=== PATIENT | female | born 1960 | race Caucasian/White ===

== ENCOUNTER 2016-09-18 22:12 | Inpatient (IN) | payer MEDICARE, OTHER ==
[~2016-09-18] VITALS: Ht 175.3 cm; Wt 103.1 kg
[~2016-09-18 22:12] MED LIST: ALPR2TAB2 PO; CARB200T PO; LEVO125T5 PO; OXYC15TA60 PO; Oxycodone Hcl/Acetaminophen PO; PREG150C PO; TRAZ300T2 PO; ZOLP5TAB PO
[2016-09-18] MEDS ORDERED: KETOROLAC 15 MG/ML VIAL. IV ONE (22:55)
[2016-09-18] MEDS ORDERED: DEXAMETHASONE SOD PHOS 20 MG/5 ML VIAL. IV ONE (22:55)
--- NOTE | 2016-09-18 23:15 | PHYS DOC ---
Past Medical History Past Medical History: Depression, Other Additional Past Medical Histor: Lupus Past Surgical History: Appendectomy, Cholecystectomy, , Hysterectomy, Other Additional Past Surgical Histo: breast implants and removal, rt ankle Alcohol Use: Rarely Drug Use: None Adult General Chief Complaint Chief Complaint: CHEST PAIN HPI HPI Patient is a 55 year old female who presents by EMS for multiple reasons. She notes having low back pain and bilateral leg weakness over the past 3 days. She has required assistance with ambulation due to leg weakness. She does note intermittent shooting/tingling sensations through her pursed area buttock with bending and spontaneously. She denies saddle last he had, bowel or bladder dysfunction. She states this has made her anxious about her health. She does note that in the past week she has been dealing with increased "lupus pain" as well. Tonight around 9 PM, she started having chest pressure that radiated toward left shoulder associated with dyspnea, that is currently relieved. She did take an aspirin today prior to calling EMS. She has never seen a packaging mechanic or had a stress test. She is not currently on steroids for lupus, but has taken the past. She has not seen a retail buyer for lupus. She denies cough, dyspnea, lightheadedness, dizziness, headache, vision changes, abdominal pain. Review of Systems Review of Systems Constitutional: Denies fever or chills [] Eyes: Denies change in visual acuity, redness, or eye pain [] HENT: Denies nasal congestion or sore throat [] Respiratory: Denies cough or shortness of breath [] Cardiovascular: No additional information not addressed in HPI [] GI: Denies abdominal pain, nausea, vomiting, bloody stools or diarrhea [] : Denies dysuria or hematuria [] Musculoskeletal: Denies joint pain [] Integument: Denies rash or skin lesions [] Neurologic: Denies headache [] Endocrine: Denies polyuria or polydipsia [] Current Medications Current Medications Current Medications Medications (Trade) Dose Ordered Sig/Queta Start Time Stop Time Status Last Admin Dose Admin Dexamethasone Sodium Phosphate (Decadron) 10 mg 1X ONCE 09/18/16 22:55 09/18/16 22:56 DC Ketorolac Tromethamine (Toradol) 10 mg 1X ONCE 09/18/16 22:55 09/18/16 22:56 DC Allergies Allergies Allergies Coded Allergies Type Severity Reaction Last Updated Verified gabapentin Allergy Unknown 09/18/16 Yes morphine Allergy Unknown Nausea and Vomiting 09/18/16 Yes Physical Exam Physical Exam Constitutional: Well developed, well nourished, no acute distress, non-toxic appearance. [] HENT: Normocephalic, atraumatic, bilateral external ears normal, oropharynx moist,nose normal. [] Eyes: PERRLA, EOMI. [] Neck: Normal range of motion, supple. [] Cardiovascular:Heart rate regular rhythm [] Lungs & Thorax: Bilateral breath sounds clear to auscultation. No chest wall tenderness [] Abdomen: Bowel sounds normal, soft, no tenderness. Poor rectal tone on digital rectal exam, but sensation intact to light touch. [] Skin: Warm, dry, no erythema, no rash. [] Back: No tenderness, no CVA tenderness. [] Extremities: No tenderness, ROM intact, no edema. [] Neurologic: Alert and oriented X 3, normal sensory function, no focal deficits noted. Strength 4/5 in bilateral lower extremities [] Psychologic: Affect normal, judgement normal, mood normal. [] Current Patient Data Vital Signs Vital Signs Date Time Temp Pulse Resp B/P (MAP) Pulse Ox O2 Delivery O2 Flow Rate FiO2 09/18/16 22:19 98.9 87 16 125/65 (85) 95 Room Air 98.9 EKG EKG EKG as interpreted by me as normal sinus rhythm, rate 86, no ST-T changes, normal intervals, no ectopy Radiology/Procedures Radiology/Procedures Chest xray as interpreted by me with no acute cardiopulmonary disease process Course & Med Decision Making Course & Med Decision Making Pertinent Labs and Imaging studies reviewed. (See chart for details) HEART score 2. Recommend admission for ACS rule out due to onset of symptoms and no prior evaluation. Also will be admitted for lower extremity weakness. MRI L-spine is ordered to rule out cauda equina syndrome. Discussed case with Dr. Neil, who will admit. Cardiology consult placed. Andrzej Disclaimer Andrzej Disclaimer This electronic medical record was generated, in whole or in part, using a voice recognition dictation system. Departure Departure Impression: Primary Impression: Chest pain Additional Impressions: Low back pain Leg weakness, bilateral Disposition: ADMITTED INPATIENT Condition: STABLE Problem Qualifiers Primary Impression: Chest pain Chest pain type: unspecified Qualified Codes: R07.9 - Chest pain, unspecified Additional Impressions: Low back pain Chronicity: acute Back pain laterality: bilateral Sciatica presence: with sciatica Sciatica laterality: bilateral sciatica Qualified Codes: M54.42 - Lumbago with sciatica, left side; M54.41 - Lumbago with sciatica, right side Lázaro POWELL MD September 18, 2016 23:15
[2016-09-18 23:45] LABS: BILIRUBIN,URINE NEGATIVE (NEG); GLUCOSE,URINE NEGATIVE (NEG); NITRITE,URINE NEGATIVE (NEG); PH,URINE 6.5; PROTEIN,URINE NEGATIVE (NEG-TRACE); UROBILINOGEN,URINE 0.2 mg/dL (0.2 mg/dL)
[2016-09-18 23:50] LABS: BACTERIA,URINE 0 /HPF (0-FEW); RBC,URINE 0 /HPF (0-2); SQUAMOUS EPITHELIAL CELL,UR FEW /LPF; WBC,URINE OCC /HPF (0-4)
[2016-09-18 23:52] LABS: BARBITURATES NEG (NEG); BENZODIAZEPINES NEG (NEG); CANNABINOIDS NEG (NEG); COCAINE NEG (NEG); METHADONE NEG (NEG); OPIATES NEG (NEG); PHENCYCLIDINE NEG (NEG)
[2016-09-18] MEDS ORDERED: ONDANSETRON PF 4 MG/2 ML VIAL. IV ONE (23:55)
[2016-09-19] VITALS (7 sets, daily range): BP systolic 106–124; BP diastolic 50–73
[2016-09-19] MEDS ORDERED: NITROGLYCERIN SUBLINGUAL 0.4 MG BOTTLE OF 25. SL PRN
[2016-09-19] MEDS: fentaNYL PF VIAL 100 MCG/2 ML VIAL IV PRN ×2 (00:16→04:59)
[2016-09-19 00:19] LABS: BASO % 0 % (0-3); EOS % 2 % (0-3); HEMATOCRIT 36.6 % (36.0-47.0); HEMOGLOBIN 12.2 g/dL (12.0-15.5); LYMPH # 2.1 x10^3/uL (1.0-4.8); LYMPH % 40 % (24-48); MEAN CORPUSCULAR HEMOGLOBIN 30 pg (25-35); MEAN CORPUSCULAR HGB CONC 33 g/dL (31-37); MEAN CORPUSCULAR VOLUME 90 fL (79-100); MONO % 11 % (0-9); NEUT % 47 % (31-73); PLATELET COUNT 203 x10^3/uL (140-400); RED BLOOD COUNT 4.05 x10^6/uL (3.50-5.40); RED CELL DISTRIBUTION WIDTH 15.2 % (11.5-14.5); WHITE BLOOD COUNT 5.2 x10^3/uL (4.0-11.0)
[2016-09-19 00:33] LABS: CALCIUM 9.2 mg/dL (8.5-10.1); CREATININE 0.8 mg/dL (0.6-1.0); GFR 74.2; POTASSIUM 3.9 mmol/L (3.5-5.1)
--- NOTE | 2016-09-19 01:22 | RAD ---
PROCEDURE MRI lumbar spine without contrast HISTORY Lower back pain with bilateral leg weakness and posterior leg numbness paresthesias for 3 days TECHNIQUE Multiplanar MRI sequences of the lumbar spine were acquired without contrast. COMPARISON MRI lumbar spine April 21, 2012 FINDINGS Lumbar vertebral body height and alignment intact. No bone marrow edema. Conus medullaris terminates at the L1-L2 disc level cauda equina is unremarkable. Paraspinal tissues are unremarkable. Disc disease is described below. L1-L2: Mild facet hypertrophy. No spinal canal or neural foraminal stenosis. L2-L3: Mild disc desiccation, left lateral mild broad-based disc protrusion. Very mild narrowing of the left neural foramen. Right neural foramen patent. No spinal canal stenosis. L3-L4: Disc desiccation. Shallow disc bulge mild facet osteophytes spinal canal and neural foramina are patent. L4-L5: Disc desiccation. Shallow disc bulge with superimposed left lateral mild broad-based disc protrusion with lateral annulus tear. Mild facet osteophytes. Mild -moderate left neural foraminal stenosis is stable. Right neural foramen patent. Spinal canal patent. L5-S1: Disc desiccation, mild posterior disc height loss, shallow disc bulge with areas of annulus tear at the left paracentral and lateral annulus and mild lateral endplate osteophytes, there is increased disc height loss posteriorly relative to the prior exam. Mild facet osteophytes. Very mild neural foraminal narrowing is stable. Spinal canal patent. IMPRESSION Lumbar spine disc disease and facet osteoarthritis. No spinal canal stenosis. Mild -moderate left neural foraminal stenosis at L4-5. Very mild narrowing of the neural foramina at L5-S1. See discussion above. Electronically signed by: Tyson Smith MD (September 19, 2016 01:21:19)
[2016-09-19] MEDS ORDERED: ALPR1TAB6 PO (01:35)
[2016-09-19] MEDS ORDERED: TRAZ300T2 PO (01:35)
[2016-09-19] MEDS ORDERED: ZOLP10TA PO (01:35)
[2016-09-19] MEDS ORDERED: PREG300C PO (01:35)
[2016-09-19] MEDS ORDERED: VENL150C PO (01:35)
[2016-09-19] MEDS ORDERED: PREG150C PO (01:35)
[2016-09-19] MEDS ORDERED: LEVO125T5 PO (01:35)
[2016-09-19] MEDS ORDERED: TRAM50TA PO (01:35)
[2016-09-19] MEDS ORDERED: fentaNYL PF VIAL 100 MCG/2 ML VIAL IV PRN (01:45)
[2016-09-19] MEDS: BUTORPHANOL 2 MG/ML VIAL. IV PRN ×2 (02:07→08:23)
--- NOTE | 2016-09-19 07:29 | EKG ---
[facility] [address] [place] [address] Test Date: 2016-09-18 Test Time: 22:17:06 Pat Name: SHREE ISIDRO Department: Room: [facility] Gender: F Bone Worker: : 1960 Requested By: Lázaro POWELL Order Number: [id number] Reading MD: Nichole Bains Measurements Intervals [place] Rate: 86 P: 52 NE: 162 QRS: 28 QRSD: 88 T: 47 QT: 366 QTc: 441 Interpretive Statements SINUS RHYTHM NORMAL EKG Electronically Signed On 09-21-2016 21:44:53 CDT by Nichole Bains
--- NOTE | 2016-09-19 07:47 | RAD ---
Portable chest, 09/18/2016: History: Chest pain Comparison is made to a study from 07/05/2012. The heart size and pulmonary vascularity are normal. No pulmonary infiltrate is seen. There is no evidence of pleural fluid. Moderate spurring is present in the spine. IMPRESSION: No acute cardiopulmonary abnormality is detected.
--- NOTE | 2016-09-19 09:21 | PDOC2 ---
CARDIAC CONSULT DATE OF CONSULT Date of Consult DATE: 09/19/16 TIME: 09:15 REASON FOR CONSULT Reason for Consult: Chest pain REFERRING PHYSICIAN Referring Physician: White SOURCE Source: Chart review, Patient HISTORY OF PRESENT ILLNESS HISTORY OF PRESENT ILLNESS This is an anxious 55 yo female admitted for complains of lower back pain, leg weakness, recent fall, and chest pain. Reports that she was walking her dog 5 days ago and upon an incline close to bridge she fell, landed back first. Her back has been bothering her more since then and 2 days ago she noticed more tingling to both legs and her weakness intensified yesterday and was not able to stand and just to move her legs she needed to assist it with her hands. This made her even more anxious and was feeling mid chest tightness with SOA which lasted about 10 minutes and has not recurred. Currently she is complaining of low back pain and her weakness remains. She typically takes tramadol and it works for her but this has not been helping much. Denies any CAD , VTE. No complains of associated radiating arm or jaw discomfort nor palpitations or nausea. PAST MEDICAL HISTORY Cardiovascular: No pertinent hx Pulmonary: No pertinent hx GI: Peptic Ulcer disease Heme/Onc: Other (lupus in remission; possible lyme disease noted bull eye lesion in the past prior to lupus symptoms) Hepatobiliary: No pertinent hx Psych: Anxiety Musculoskeletal: Osteoarthritis Rheumatologic: No pertinent hx Infectious disease: No pertinent hx ENT: No pertinent hx Renal/: No pertinent hx Endocrine: Hypothyroidism Dermatology: No pertinent hx PAST SURGICAL HISTORY Past Surgical History: Appendectomy, Arthroscopy (right ankle), Cholecystectomy , , Hysterectomy, Other (breast implant and removal) FAMILY HISTORY Family History noncontributory to CV SOCIAL HISTORY Smoke: No ALCOHOL: none Drugs: None Lives: Alone CURRENT MEDICATIONS CURRENT MEDICATIONS Current Medications Medications (Trade) Dose Ordered Sig/Queta Route PRN Reason Start Time Stop Time Status Last Admin Dose Admin Dexamethasone Sodium Phosphate (Decadron) 10 mg 1X ONCE IV 09/18/16 22:55 09/18/16 22:56 DC 09/18/16 23:51 Ondansetron HCl (Zofran) 4 mg 1X ONCE IV 09/18/16 23:55 09/18/16 23:56 DC 09/18/16 23:51 Lorazepam (Ativan) 1 mg 1X ONCE IV 09/18/16 23:55 09/18/16 23:56 DC 09/18/16 23:50 Fentanyl Citrate (Fentanyl 2ml Vial) 50 mcg PRN 1X PRN IV pain for one dose 09/19/16 00:00 09/19/16 04:59 Lorazepam (Ativan) 1 mg PRN Q6HRS PRN IV ANXIETY / AGITATION 09/19/16 01:45 09/19/16 03:15 Butorphanol Tartrate (Stadol) 1 mg PRN Q6HRS PRN IV PAIN 09/19/16 01:45 09/19/16 08:23 ALLERGIES ALLERGIES: Coded Allergies: NSAIDS (Non-Steroidal Anti-Inflamma (Verified Allergy, Unknown, Nausea and Vomiting, 09/19/16) gabapentin (Verified Allergy, Unknown, 09/18/16) morphine (Verified Allergy, Unknown, Nausea and Vomiting, 09/18/16) ROS Review of System 14 point ROS evaluated with pertinent positive noted per HPI PHYSICAL EXAM General: Alert, Oriented X3, Cooperative, No acute distress HEENT: Atraumatic, Mucous membr. moist/pink Lungs: Clear to auscultation, Normal air movement Heart: Regular rate (SR), Normal S1, Normal S2, Other (2/6 systolic murmur to LLS border and OLIVIER border) Abdomen: Soft, No tenderness Extremities: No cyanosis, No edema Skin: No breakdown, No significant lesion Neuro: Normal speech, Sensation intact Psych/Mental Status: Mental status NL, Other (anxious) MUSCULOSKELETAL: Other (bilateral LE weakness) VITALS VITALS Vital Signs Date Time Temp Pulse Resp B/P (MAP) Pulse Ox O2 Delivery O2 Flow Rate FiO2 09/19/16 08:23 93 Room Air 09/19/16 07:51 98.6 83 18 119/69 (86) 98.6 LABS Lab: Laboratory Tests Test 09/18/16 23:36 09/19/16 06:10 Urine Collection Type U cath Urine Color Yellow Urine Clarity Clear Urine pH 6.5 Urine Specific [place] 1.015 Urine Protein Negative mg/dL (NEG-TRACE) Urine Glucose (UA) Negative mg/dL (NEG) Urine Ketones (Stick) Negative mg/dL (NEG) Urine Blood Negative (NEG) Urine Nitrite Negative (NEG) Urine Bilirubin Negative (NEG) Urine Urobilinogen Dipstick 0.2 mg/dL (0.2 mg/dL) Urine Leukocyte Esterase Negative (NEG) Urine RBC 0 /HPF (0-2) Urine WBC Occ /HPF (0-4) Urine Squamous Epithelial Cells Few /LPF Urine Amorphous Sediment Present /HPF Urine Bacteria 0 /HPF (0-FEW) Urine Mucus Mod /LPF Urine Opiates Screen Neg (NEG) Urine Methadone Screen Neg (NEG) Urine Barbiturates Neg (NEG) Urine Phencyclidine Screen Neg (NEG) Urine Amphetamine/Methamphetamine Neg (NEG) Urine Benzodiazepines Screen Neg (NEG) Urine Cocaine Screen Neg (NEG) Urine Cannabinoids Screen Neg (NEG) Urine Ethyl Alcohol Neg (NEG) Troponin I Quantitative < 0.017 ng/mL (0.000-0.055) ASSESSMENT/PLAN ASSESSMENT/PLAN 1. Atypical chest pain: troponin series normal, EKG SR without acute changes. Doubt ACS, likely anxiety 2. Mechanical fall: happened 5 days ago, landed on her back 3. Low back pain with Lumbar radiculopathy: 2 day worsening low back pain with bilateral LE weakness and neuropathy. Likely exacerbated by recent fall. 4. Hypothyroidism 5. Anxiety: started on SSRI 06/2016 since brothers passing. Defer to PCP 6. Hx of PUD: NSAID induced. 4 months ago with gastric ulcer treated with PPI and cautery per pt and re-scoped 3 months ago and was better per her report. Recommendations 1. Baseline TTE, no further cardiac w/u if unremarkable 2. TSH, lipid panel. 3. Resume PPI 4. Consult Dr. Birch if OK with PCP. Problems: MAEVE NELSON APRN September 19, 2016 09:21
[2016-09-19 09:47] LABS: CHOLESTEROL/HDL RATIO 3.1
[2016-09-19] MEDS ORDERED: oxyCODONE/APAP 5/325 1 TAB TABLET PO PRN (11:45)
[2016-09-19] MEDS ORDERED: LIDOCAINE/PRILOCAINE TOPICAL CREAM 5GM TUBE. TP SCH (11:50)
[2016-09-19] MEDS ORDERED: ACETAMINOPHEN 325 MG TABLET. PO PRN ×2 (12:00)
[2016-09-19] MEDS ORDERED: ONDANSETRON PF 4 MG/2 ML VIAL. IV PRN ×2 (12:00)
[2016-09-19] MEDS: PANTOPRAZOLE 40 MG TABLET.DR. PO SCH (12:21)
[2016-09-19] MEDS: traMADol 50 MG TABLET PO SCH ×2 (12:30→23:51)
[2016-09-19] MEDS ORDERED: ZOLPIDEM 5 MG TABLET. PO PRN (12:30)
[2016-09-19] MEDS: PREGABALIN 50 MG CAPSULE PO SCH (12:35)
[2016-09-19] MEDS: ALPRAZolam 1 MG TABLET PO PRN ×2 (12:42→20:02)
[2016-09-19] MEDS: LIDOCAINE (700MG/PATCH) PATCH. TD SCH (12:42)
[2016-09-19] MEDS: MORPHINE SULFATE 4 MG/ML DISP.SYRIN. IV PRN ×3 (13:27→22:20)
[2016-09-19] MEDS: VENLAFAXINE 50 MG TABLET. PO SCH ×2 (13:27→21:00)
--- NOTE | 2016-09-19 13:47 | PDOC1 ---
History and Physical Date of Admission Date of Admission 09/18/16 Identification/Chief Complaint Chief Complaint LOwer back pain chest pain Problems: Source Source: Chart review, Patient History of Present Illness History of Present Illness HPI HPI Patient is a 55 year old female who presents by EMS for multiple reasons. Pt changed her first name since last year, as per her father, she is a pain seeker, worsening psych issues, and [facility] Pt said she fell 5days ago with her little dog, and has severe lower back pain for 2 days, severe, which cause her hard to move bl lower ext, intermittent shooting/tingling sensations through her pursed area buttock with bending and spontaneously. no Bowel or urination problem. She also has some chest pressure pain at 9pm last night, radiating to left shoulder, with some sob, moderate, now pain free. She denies cough, dyspnea, lightheadedness, dizziness, headache, vision changes , abdominal pain. Pt appears very uncomfortable to me now, no tenderness at back. She require iv pain meds, refused po pain meds, saying morphine made her sick years ago, but required dilaudid to the nurse at night. Past Medical History Cardiovascular: No pertinent hx Pulmonary: No pertinent hx GI: Peptic Ulcer disease Heme/Onc: Other (lupus in remission; possible lyme disease noted bull eye lesion in the past prior to lupus symptoms) Hepatobiliary: No pertinent hx Psych: Anxiety Rheumatologic: No pertinent hx Infectious disease: No pertinent hx ENT: No pertinent hx Renal/: No pertinent hx Endocrine: Hypothyroidism Dermatology: No pertinent hx Past Surgical History Past Surgical History: Appendectomy, Arthroscopy (right ankle), Cholecystectomy , , Hysterectomy, Other (breast implant and removal) Family History Family History: Hypertension Social History Smoke: No ALCOHOL: none Drugs: None Current Problem List Problem List Problems Medical Problems: (1) Chest pain Status: Acute (2) Leg weakness, bilateral Status: Acute (3) Low back pain Status: Acute Current Medications Current Medications Current Medications Medications (Trade) Dose Ordered Sig/Uqeta Start Time Stop Time Status Last Admin Dose Admin Acetaminophen (Tylenol) 650 mg PRN Q6HRS PRN 09/19/16 12:00 Alprazolam (Xanax) 1 mg PRN Q6HRS PRN 09/19/16 12:00 09/19/16 12:42 1 MG Butorphanol Tartrate (Stadol) 1 mg PRN Q6HRS PRN 09/19/16 01:45 09/19/16 08:23 1 MG Dexamethasone Sodium Phosphate (Decadron) 10 mg 1X ONCE 09/18/16 22:55 09/18/16 22:56 DC 09/18/16 23:51 10 MG Fentanyl Citrate (Fentanyl 2ml Vial) 50 mcg PRN Q2HR PRN 09/19/16 01:45 09/19/16 13:22 DC Ketorolac Tromethamine (Toradol) 10 mg 1X ONCE 09/18/16 22:55 09/18/16 22:56 DC Levothyroxine Sodium (Synthroid) 125 mcg DAILYAC 09/20/16 07:30 Lidocaine (Lidoderm) 1 patch DAILY 09/19/16 12:15 09/19/16 12:42 1 PATCH Lidocaine/ Prilocaine (Emla) 1 lupe DAILY 09/19/16 11:50 Cancel Lorazepam (Ativan) 1 mg PRN Q6HRS PRN 09/19/16 01:45 09/19/16 09:40 1 MG Morphine Sulfate 4 mg PRN Q4HRS PRN 09/19/16 13:15 09/19/16 13:27 4 MG Nitroglycerin (Nitrostat) 0.4 mg PRN Q5MIN PRN 09/19/16 00:00 09/19/16 23:59 Non-Formulary Medication 300 mg DAILY 09/20/16 09:00 09/20/16 09:00 DC Ondansetron HCl (Zofran) 4 mg PRN Q6HRS PRN 09/19/16 12:00 09/19/16 13:28 4 MG Oxycodone/ Acetaminophen (Percocet 5/325) 1 tab PRN Q4HRS PRN 09/19/16 11:45 Pantoprazole Sodium (Protonix) 40 mg DAILYAC 09/19/16 11:00 09/19/16 12:21 40 MG Pregabalin (Lyrica) 300 mg DAILY 09/19/16 12:30 09/19/16 12:35 300 MG Tramadol HCl (Ultram) 50 mg BID 09/19/16 12:30 Trazodone HCl (Desyrel) 450 mg PRN QHS PRN 09/19/16 21:00 Venlafaxine HCl (Effexor) 100 mg TID 09/19/16 14:00 09/19/16 13:27 100 MG Zolpidem Tartrate (Ambien) 5 mg PRN QHS PRN 09/19/16 12:30 Allergies Allergies Allergies Coded Allergies Type Severity Reaction Last Updated Verified NSAIDS (Non-Steroidal Anti-Inflamma Allergy Unknown Nausea and Vomiting Yes gabapentin Allergy Unknown 09/18/16 Yes ROS Review of System CONSTITUTIONAL: No fever or chills EYES: No recent changes SKIN: No rash or itching CARDIOVASCULAR: No chest pain, syncope, palpitations, or edema RESPIRATORY: No SOB or cough GASTROINTESTINAL: No nausea, vomiting or abdominal pain NEUROLOGICAL: No headaches or weakness ENDOCRINE: No cold or heat intolerance GENITOURINARY: No urgency or frequency of urination MUSCULOSKELETAL: No back pain or joint pain LYMPHATICS: No enlarged lymph nodes PSYCHIATRIC: No anxiety or depression Physical Exam Physical Exam GEN.: appears very anxious in pain. Alert and oriented.No tenderness at back. HEENT: Head is normocephalic, atraumatic NECK: Supple. LUNGS: Clear to auscultation. HEART: RRR, S1, S2 present. Peripheral pulses intact ABDOMEN: Soft, nontender. Positive bowel sounds. EXTREMITIES: Without any cyanosis. barely to move lower ext 2/2 back pain NEUROLOGIC: Normal speech, normal tone PSYCHIATRIC: Normal affect, normal mood. SKIN: No ulcerations Vitals Vitals Vital Signs Date Time Temp Pulse Resp B/P (MAP) Pulse Ox O2 Delivery O2 Flow Rate FiO2 09/19/16 13:27 93 Room Air 09/19/16 11:06 97.8 85 18 118/61 (80) 97.8 Labs Labs Laboratory Tests Test 09/18/16 00:13 09/18/16 23:36 09/19/16 06:10 09/19/16 11:50 White Blood Count 5.2 x10^3/uL (4.0-11.0) Red Blood Count 4.05 x10^6/uL (3.50-5.40) Hemoglobin 12.2 g/dL (12.0-15.5) Hematocrit 36.6 % (36.0-47.0) Mean Corpuscular Volume 90 fL (79-100) Mean Corpuscular Hemoglobin 30 pg (25-35) Mean Corpuscular Hemoglobin Concent 33 g/dL (31-37) Red Cell Distribution Width 15.2 % (11.5-14.5) Platelet Count 203 x10^3/uL (140-400) Neutrophils (%) (Auto) 47 % (31-73) Lymphocytes (%) (Auto) 40 % (24-48) Monocytes (%) (Auto) 11 % (0-9) Eosinophils (%) (Auto) 2 % (0-3) Basophils (%) (Auto) 0 % (0-3) Neutrophils # (Auto) 2.5 x10^3uL (1.8-7.7) Lymphocytes # (Auto) 2.1 x10^3/uL (1.0-4.8) Monocytes # (Auto) 0.6 x10^3/uL (0.0-1.1) Eosinophils # (Auto) 0.1 x10^3/uL (0.0-0.7) Basophils # (Auto) 0.0 x10^3/uL (0.0-0.2) Sodium Level 141 mmol/L (136-145) Potassium Level 3.9 mmol/L (3.5-5.1) Chloride Level 104 mmol/L (98-107) Carbon Dioxide Level 30 mmol/L (21-32) Anion Gap 7 (6-14) Blood Urea Nitrogen 13 mg/dL (7-20) Creatinine 0.8 mg/dL (0.6-1.0) Estimated GFR (Cockcroft-Gault) 74.2 Glucose Level 79 mg/dL (70-99) Calcium Level 9.2 mg/dL (8.5-10.1) Magnesium Level 2.0 mg/dL (1.8-2.4) Troponin I Quantitative < 0.017 ng/mL (0.000-0.055) < 0.017 ng/mL (0.000-0.055) < 0.017 ng/mL (0.000-0.055) Urine Collection Type U cath Urine Color Yellow Urine Clarity Clear Urine pH 6.5 Urine Specific [place] 1.015 Urine Protein Negative mg/dL (NEG-TRACE) Urine Glucose (UA) Negative mg/dL (NEG) Urine Ketones (Stick) Negative mg/dL (NEG) Urine Blood Negative (NEG) Urine Nitrite Negative (NEG) Urine Bilirubin Negative (NEG) Urine Urobilinogen Dipstick 0.2 mg/dL (0.2 mg/dL) Urine Leukocyte Esterase Negative (NEG) Urine RBC 0 /HPF (0-2) Urine WBC Occ /HPF (0-4) Urine Squamous Epithelial Cells Few /LPF Urine Amorphous Sediment Present /HPF Urine Bacteria 0 /HPF (0-FEW) Urine Mucus Mod /LPF Urine Opiates Screen Neg (NEG) Urine Methadone Screen Neg (NEG) Urine Barbiturates Neg (NEG) Urine Phencyclidine Screen Neg (NEG) Urine Amphetamine/Methamphetamine Neg (NEG) Urine Benzodiazepines Screen Neg (NEG) Urine Cocaine Screen Neg (NEG) Urine Cannabinoids Screen Neg (NEG) Urine Ethyl Alcohol Neg (NEG) Triglycerides Level 38 mg/dL (0-150) Cholesterol Level 190 mg/dL (0-200) LDL Cholesterol, Calculated 120 mg/dL (0-100) VLDL Cholesterol, Calculated 8 mg/dL (0-40) Non-HDL Cholesterol Calculated 128 mg/dL (0-129) HDL Cholesterol 62 mg/dL (40-60) Cholesterol/HDL Ratio 3.1 Thyroid Stimulating Hormone (TSH) 0.104 uIU/mL (0.358-3.74) Laboratory Tests Test 09/18/16 23:36 09/19/16 06:10 09/19/16 11:50 Urine Collection Type U cath Urine Color Yellow Urine Clarity Clear Urine pH 6.5 Urine Specific [place] 1.015 Urine Protein Negative mg/dL (NEG-TRACE) Urine Glucose (UA) Negative mg/dL (NEG) Urine Ketones (Stick) Negative mg/dL (NEG) Urine Blood Negative (NEG) Urine Nitrite Negative (NEG) Urine Bilirubin Negative (NEG) Urine Urobilinogen Dipstick 0.2 mg/dL (0.2 mg/dL) Urine Leukocyte Esterase Negative (NEG) Urine RBC 0 /HPF (0-2) Urine WBC Occ /HPF (0-4) Urine Squamous Epithelial Cells Few /LPF Urine Amorphous Sediment Present /HPF Urine Bacteria 0 /HPF (0-FEW) Urine Mucus Mod /LPF Urine Opiates Screen Neg (NEG) Urine Methadone Screen Neg (NEG) Urine Barbiturates Neg (NEG) Urine Phencyclidine Screen Neg (NEG) Urine Amphetamine/Methamphetamine Neg (NEG) Urine Benzodiazepines Screen Neg (NEG) Urine Cocaine Screen Neg (NEG) Urine Cannabinoids Screen Neg (NEG) Urine Ethyl Alcohol Neg (NEG) Troponin I Quantitative < 0.017 ng/mL (0.000-0.055) < 0.017 ng/mL (0.000-0.055) Triglycerides Level 38 mg/dL (0-150) Cholesterol Level 190 mg/dL (0-200) LDL Cholesterol, Calculated 120 mg/dL (0-100) VLDL Cholesterol, Calculated 8 mg/dL (0-40) Non-HDL Cholesterol Calculated 128 mg/dL (0-129) HDL Cholesterol 62 mg/dL (40-60) Cholesterol/HDL Ratio 3.1 Thyroid Stimulating Hormone (TSH) 0.104 uIU/mL (0.358-3.74) VTE Prophylaxis Ordered VTE Prophylaxis Devices: Yes VTE Pharmacological Prophylaxi: Yes Assessment/Plan Assessment/Plan 1. lower back pain, 2/2 OA, or muscle spasm 2. chest pain, atypical, 2/2 anxiety likely 3 bipoloar disorder, 1 4. h/o lupus, no meds 5. likely pain meds seeker 6. obesity 7. hypothyroidism plan: card consulted, echo pending, CE , EKG neg MRI back not remarkable dr. Birch consult pt said morphine made her sick years ago, but tolerate morphine iv and dilaudid add percocet, but pt refuses add lidoderm patch, flexiril dvt ppx ptot NEYDA WALTON MD September 19, 2016 13:47
[2016-09-19] MEDS ORDERED: CYCLOBENZAPRINE 10 MG TABLET. PO PRN (14:00)
[2016-09-19] MEDS: ENOXAPARIN 40 MG/0.4 ML SYRINGE. SQ SCH (15:31)
[2016-09-19] MEDS: SMZ/TMP 800/160MG TABLET. PO SCH (17:07)
[2016-09-19] MEDS: oxyCODONE/APAP 5/325 1 TAB TABLET PO PRN (20:00)
[2016-09-19] MEDS ORDERED: traZODone 100 MG TABLET. PO PRN (21:00)
[2016-09-20] MEDS: MORPHINE SULFATE 4 MG/ML DISP.SYRIN. IV PRN ×3 (03:17→12:47)
[2016-09-20] MEDS: ALPRAZolam 1 MG TABLET PO PRN ×3 (03:37→16:16)
--- NOTE | 2016-09-20 06:05 | CONS ---
DATE OF CONSULTATION: 09/19/2016 ATTENDING PHYSICIAN: Dr. Benoit. The patient was seen at the request of Dr. Benoit for rehab evaluation. HISTORY OF PRESENT ILLNESS: This is a 55-year-old female with history of lupus, on remission. ____ is to be her family physician. The patient was also diagnosed as having peripheral neuropathy, has been taking Lyrica. The patient fell about 5 days ago, landed on her back while up walking with her dog, she slipped. Since then she is having severe back pain with radiation to both lower extremities and admits significant stiffness in her lower extremities with associated numbness and tingling sensation. She denies any trouble with her bowel or bladder control. She was admitted on 09/18/2016, and asking for IV narcotic pain medication. THE PATIENT IS KNOWN ALLERGIC TO NONSTEROIDAL ANTI-INFLAMMATORY DRUGS AND GABAPENTIN. PAST MEDICAL HISTORY: Also includes peptic ulcer disease, anxiety, hypothyroidism. The patient is status post appendectomy, arthroscopic surgery right ankle, cholecystectomy, hysterectomy, breast implant and removal. FAMILY HISTORY: Hypertension. PHYSICAL EXAMINATION: Today revealed a middle-aged female. She is alert, oriented to time, place, person and circumstance and follows commands appropriately. Moves all 4 extremities voluntarily where she had 4+/5 grade muscle strength and deep tendon reflexes are 1 to 2+ and symmetrical and she had equal perception of touch and pinprick sensation bilaterally. She had minimal tenderness to palpation over thoracic and lumbar paraspinal muscles. Straight leg raising test is negative bilaterally. She had pain free range of motion on both hip and knee and ankle joints. She is independent with bed mobility and transfers. Once up, she walks with somewhat antalgic gait. I did not see any loss of balance. ASSESSMENT: A middle-aged female with recent thoracolumbar sprain from a fall with radiological evidence of degenerative disk disease and degenerative joint disease of lumbar vertebrae with lumbar radiculitis and also history of peripheral neuropathy probably sensory as she admits burning sensation in her feet if she does not take Lyrica on a regular basis. RECOMMENDATIONS: I have reviewed with her a home program of physical modalities, trigger point massage and relax stretching exercises and proper body mechanics to be done on a regular basis. Home when medically stable with outpatient followup. Dr. Benoit, I, appreciate asking me to participate in the care of this interesting patient. I will be glad to follow her with you as needed for her rehabilitation. PARAG BILLINGSLEY MD DR: MELISSA/jazmyn JOB#: [id number] / [id number]
[2016-09-20 07:22] VITALS: BP 121/67
[2016-09-20] MEDS ORDERED: LEVOTHYROXINE 125 MCG TABLET PO SCH (07:30)
[2016-09-20] MEDS: PANTOPRAZOLE 40 MG TABLET.DR. PO SCH (07:45)
[2016-09-20] MEDS: oxyCODONE/APAP 5/325 1 TAB TABLET PO PRN ×2 (08:34→12:47)
[2016-09-20] MEDS: VENLAFAXINE 50 MG TABLET. PO SCH ×2 (08:34→14:12)
[2016-09-20] MEDS: SMZ/TMP 800/160MG TABLET. PO SCH (08:35)
[2016-09-20] MEDS: PREGABALIN 50 MG CAPSULE PO SCH (08:35)
[2016-09-20] MEDS: traMADol 50 MG TABLET PO SCH (08:35)
[2016-09-20] MEDS: LIDOCAINE (700MG/PATCH) PATCH. TD SCH (08:36)
[2016-09-20] MEDS ORDERED: PREGABALIN 300 MG PO SCH (09:00)
--- NOTE | 2016-09-20 09:44 | PDOC ---
PROGRESS NOTES Subjective Subjective She admits continued back pain. Objective Objective Vital Signs Date Time Temp Pulse Resp B/P (MAP) Pulse Ox O2 Delivery O2 Flow Rate FiO2 09/20/16 08:35 Room Air 09/20/16 07:22 97.5 81 18 121/67 (85) 92 97.5 Intake and Output 09/20/16 07:00 Intake Total 720 ml Balance 720 ml Intake Oral 720 ml # Voids 6 Physical Exam Physical Exam She is alert,supine in bed but remains independent with her mobility. Assessment Assessment Problems Medical Problems: (1) Chest pain Status: Acute (2) Leg weakness, bilateral Status: Acute (3) Low back pain Status: Acute Plan Plan of Detention with home health or out patient follow up when medically stable. Comment Review of Relevant I have reviewed the following items piyush (where applicable) has been applied. Labs Laboratory Tests Test 09/18/16 23:36 09/19/16 06:10 09/19/16 11:50 Urine Collection Type U cath Urine Color Yellow Urine Clarity Clear Urine pH 6.5 Urine Specific Mcnabb 1.015 Urine Protein Negative mg/dL (NEG-TRACE) Urine Glucose (UA) Negative mg/dL (NEG) Urine Ketones (Stick) Negative mg/dL (NEG) Urine Blood Negative (NEG) Urine Nitrite Negative (NEG) Urine Bilirubin Negative (NEG) Urine Urobilinogen Dipstick 0.2 mg/dL (0.2 mg/dL) Urine Leukocyte Esterase Negative (NEG) Urine RBC 0 /HPF (0-2) Urine WBC Occ /HPF (0-4) Urine Squamous Epithelial Cells Few /LPF Urine Amorphous Sediment Present /HPF Urine Bacteria 0 /HPF (0-FEW) Urine Mucus Mod /LPF Urine Opiates Screen Neg (NEG) Urine Methadone Screen Neg (NEG) Urine Barbiturates Neg (NEG) Urine Phencyclidine Screen Neg (NEG) Urine Amphetamine/Methamphetamine Neg (NEG) Urine Benzodiazepines Screen Neg (NEG) Urine Cocaine Screen Neg (NEG) Urine Cannabinoids Screen Neg (NEG) Urine Ethyl Alcohol Neg (NEG) Troponin I Quantitative < 0.017 ng/mL (0.000-0.055) < 0.017 ng/mL (0.000-0.055) Triglycerides Level 38 mg/dL (0-150) Cholesterol Level 190 mg/dL (0-200) LDL Cholesterol, Calculated 120 mg/dL (0-100) VLDL Cholesterol, Calculated 8 mg/dL (0-40) Non-HDL Cholesterol Calculated 128 mg/dL (0-129) HDL Cholesterol 62 mg/dL (40-60) Cholesterol/HDL Ratio 3.1 Thyroid Stimulating Hormone (TSH) 0.104 uIU/mL (0.358-3.74) Laboratory Tests Test 09/19/16 11:50 Troponin I Quantitative < 0.017 ng/mL (0.000-0.055) Medications Current Medications Dexamethasone Sodium Phosphate (Decadron) 10 mg 1X ONCE IV Last administered on 09/18/16 23:51; Start 09/18/16 at 22:55; Stop 09/18/16 at 22:56; Status DC Ketorolac Tromethamine (Toradol) 10 mg 1X ONCE IV ; Start 09/18/16 at 22:55; Stop 09/18/16 at 22:56; Status DC Ondansetron HCl (Zofran) 4 mg 1X ONCE IV Last administered on 09/18/16 23:51 ; Start 09/18/16 at 23:55; Stop 09/18/16 at 23:56; Status DC Lorazepam (Ativan) 1 mg 1X ONCE IV Last administered on 09/18/16 23:50; Start 09/18/16 at 23:55; Stop 09/18/16 at 23:56; Status DC Lorazepam (Ativan) 2 mg STK-MED ONCE .ROUTE ; Start 09/18/16 at 23:47; Stop at 23:48; Status DC Ondansetron HCl (Zofran) 4 mg PRN Q8HRS PRN IV NAUSEA/VOMITING; Start 09/19/16 at 00:00; Stop 09/19/16 at 13:18; Status DC Acetaminophen (Tylenol) 650 mg PRN Q4HRS PRN PO PAIN; Start 09/19/16 at 00:00; Stop 09/19/16 at 13:17; Status DC Nitroglycerin (Nitrostat) 0.4 mg PRN Q5MIN PRN SL CHEST PAIN; Start 09/19/16 at 00:00; Stop 09/19/16 at 23:59; Status DC Fentanyl Citrate (Fentanyl 2ml Vial) 50 mcg PRN 1X PRN IV pain for one dose Last administered on 09/19/16 04:59; Start 09/19/16 at 00:00; Stop 09/19/16 at 11:47; Status DC Lorazepam (Ativan) 1 mg PRN Q6HRS PRN IV ANXIETY / AGITATION Last administered on 09/19/16 09:40; Start 09/19/16 at 01:45 Butorphanol Tartrate (Stadol) 1 mg PRN Q6HRS PRN IV MODERATE PAIN Last administered on 09/19/16 08:23; Start 09/19/16 at 01:45 Fentanyl Citrate (Fentanyl 2ml Vial) 50 mcg PRN Q2HR PRN IV MILD TO MODERATE PAIN; Start 09/19/16 at 01:45; Stop 09/19/16 at 13:22; Status DC Pantoprazole Sodium (Protonix) 40 mg DAILYAC PO Last administered on 09/20/16 07:45; Start 09/19/16 at 11:00 Oxycodone/ Acetaminophen (Percocet 5/325) 1 tab PRN Q4HRS PRN PO MODERATE TO SEVERE PAIN Last administered on 09/19/16 15:27; Start 09/19/16 at 11:45; Stop 09/19/16 at 19:52; Status DC Lidocaine/ Prilocaine (Emla) 1 lupe DAILY TP ; Start 09/19/16 at 11:50; Status Cancel Alprazolam (Xanax) 1 mg PRN Q6HRS PRN PO ANXIETY / AGITATION Last administered on 09/20/16 03:37; Start 09/19/16 at 12:00 Levothyroxine Sodium (Synthroid) 125 mcg DAILYAC PO Last administered on 07:45; Start 09/20/16 at 07:30 Tramadol HCl (Ultram) 50 mg BID PO Last administered on 09/19/16 23:51; Start 09/19/16 at 12:30 Non-Formulary Medication 300 mg DAILY PO ; Start 09/20/16 at 09:00; Stop at 09:00; Status DC Trazodone HCl (Desyrel) 450 mg PRN QHS PRN PO INSOMNIA Last administered on 23:57; Start 09/19/16 at 21:00 Venlafaxine HCl (Effexor) 100 mg TID PO Last administered on 09/20/16 08:34; Start 09/19/16 at 14:00 Zolpidem Tartrate (Ambien) 5 mg PRN QHS PRN PO INSOMNIA Last administered on 23:50; Start 09/19/16 at 12:30 Acetaminophen (Tylenol) 650 mg PRN Q6HRS PRN PO FEVER; Start 09/19/16 at 12:00 Ondansetron HCl (Zofran) 4 mg PRN Q6HRS PRN IV NAUSEA/VOMITING Last administered on 09/19/16 13:28; Start 09/19/16 at 12:00 Pregabalin (Lyrica) 300 mg DAILY PO Last administered on 09/20/16 08:35; Start 09/19/16 at 12:30 Lidocaine (Lidoderm) 1 patch DAILY TD Last administered on 09/19/16 12:42; Start 09/19/16 at 12:15 Morphine Sulfate 4 mg PRN Q4HRS PRN IV SEVERE PAIN Last administered on 08:35; Start 09/19/16 at 13:15 Enoxaparin Sodium (Lovenox 40mg Syringe) 40 mg DAILY16 SQ Last administered on 09/19/16 15:31; Start 09/19/16 at 16:00 Cyclobenzaprine HCl (Flexeril) 10 mg PRN Q6HRS PRN PO MUSCLE SPASMS Last administered on 09/19/16 23:50; Start 09/19/16 at 14:00 Trimethoprim/ Sulfamethoxazole (Bactrim Ds) 1 tab BID PO Last administered on 08:35; Start 09/19/16 at 16:00 Oxycodone/ Acetaminophen (Percocet 5/325) 2 tab PRN Q4HRS PRN PO MODERATE TO SEVERE PAIN Last administered on 09/20/16 08:34; Start 09/19/16 at 20:00 Active Scripts Active Reported Tramadol Hcl 50 Mg Tablet 1 Tab PO BID Alprazolam 1 Mg Tablet 1 Mg PO PRN Q6HRS PRN Lyrica (Pregabalin) 150 Mg Capsule 150 Mg PO HS 30 Days Trazodone Hcl 300 Mg Tablet 425 Mg PO HS Ambien (Zolpidem Tartrate) 10 Mg Tablet 10 Mg PO HS Levothyroxine Sodium 125 Mcg Tablet 125 Mcg PO DAILYAC Lyrica (Pregabalin) 300 Mg Capsule 300 Mg PO DAILY Effexor Xr (Venlafaxine Hcl) 150 Mg Cap.er.24h 300 Mg PO DAILY Vitals/I & O Vital Sign - Last 24 Hours 09/19/16 09/19/16 09/19/16 09/19/16 10:41 11:06 12:30 13:27 Temp 97.8 97.8 Pulse 85 Resp 18 B/P (MAP) 118/61 (80) Pulse Ox 93 93 93 93 O2 Delivery Room Air Room Air Room Air Room Air 09/19/16 09/19/16 09/19/16 09/19/16 14:29 14:51 15:02 15:27 Temp 97.8 97.8 Pulse 77 Resp 17 18 B/P (MAP) 113/50 (71) Pulse Ox 93 92 98 O2 Delivery Room Air Room Air Room Air Room Air 09/19/16 09/19/16 09/19/16 09/19/16 19:56 20:00 20:00 22:20 Temp 98.5 98.5 Pulse 77 Resp 16 B/P (MAP) 106/58 (74) Pulse Ox 93 93 93 O2 Delivery Room Air Room Air Room Air Room Air 09/19/16 09/20/16 09/20/16 09/20/16 23:46 03:30 07:22 07:50 Temp 98.1 97.5 98.1 97.5 Pulse 77 81 Resp 16 18 B/P (MAP) 109/58 (75) 121/67 (85) Pulse Ox 94 92 O2 Delivery Room Air Room Air Room Air Room Air 09/20/16 09/20/16 08:34 08:35 O2 Delivery Room Air Room Air Intake and Output 09/19/16 09/19/16 09/20/16 15:00 23:00 07:00 Intake Total 720 ml Balance 720 ml PARAG BILLINGSLEY MD September 20, 2016 09:44
[2016-09-20 10:07] LABS: CALCIUM 8.6 mg/dL (8.5-10.1); CREATININE 0.9 mg/dL (0.6-1.0); GFR 64.8
[2016-09-20 10:09] LABS: BASO % 0 % (0-3); EOS % 1 % (0-3); HEMATOCRIT 36.1 % (36.0-47.0); HEMOGLOBIN 12.3 g/dL (12.0-15.5); LYMPH # 2.3 x10^3/uL (1.0-4.8); LYMPH % 43 % (24-48); MEAN CORPUSCULAR HEMOGLOBIN 31 pg (25-35); MEAN CORPUSCULAR HGB CONC 34 g/dL (31-37); MEAN CORPUSCULAR VOLUME 90 fL (79-100); MONO % 9 % (0-9); NEUT % 47 % (31-73); PLATELET COUNT 211 x10^3/uL (140-400); RED BLOOD COUNT 4.02 x10^6/uL (3.50-5.40); RED CELL DISTRIBUTION WIDTH 15.4 % (11.5-14.5); WHITE BLOOD COUNT 5.3 x10^3/uL (4.0-11.0)
[2016-09-20 11:01] VITALS: BP 107/50
[2016-09-20] MEDS ORDERED: CYCL10TA2 PO (11:43)
[2016-09-20] MEDS ORDERED: OXYC1TAB7 PO (11:43)
--- NOTE | 2016-09-20 13:12 | PDOC3 ---
Discharge Summary [facility] Date of Admission: September 18, 2016 Discharge Date: September 20, 2016 Admitting Diagnosis 1. lower back pain, 2/2 OA, or muscle spasm 2. chest pain, atypical, 2/2 anxiety likely 3 bipoloar disorder, 1 4. h/o lupus, no meds 5. likely pain meds seeker 6. obesity 7. hypothyroidism Problems: Final Diagnosis CONSULTS card dr. Birch Brief Hospital Course Patient is a 55 year old female who presents by EMS for multiple reasons. Pt changed her first name since last year, as per her father, she is a pain seeker, worsening psych issues, and usually [facility] to [facility] hosp. Pt said she fell 5days ago with her little dog, and has severe lower back pain for 2 days, severe, which cause her hard to move bl lower ext, intermittent shooting/tingling sensations through her pursed area buttock with bending and spontaneously. no Bowel or urination problem. She also has some chest pressure pain at 9pm last night, radiating to left shoulder, with some sob, moderate, now pain free. Pt appears very uncomfortable, no tenderness at back. She require iv pain meds, refused po pain meds, saying morphine made her sick years ago, but required dilaudid to the nurse at night. Pt refused PTOT saying she can walk fine but appears barely can walk to me. She refused Echo from Card saying her chest pain is gone. She takes morphine iv fine wo side effects, and percocet 10mg wo problem. She is likely a pain meds seeker, appearing in pain, but no back tenderness, MRI neg , agrees to go home today give flexiril 15pills, percocet 5/325 20 pills. dc time 35min GEN.: appears very anxious in pain. Alert and oriented.No tenderness at back. HEENT: Head is normocephalic, atraumatic NECK: Supple. LUNGS: Clear to auscultation. HEART: RRR, S1, S2 present. Peripheral pulses intact ABDOMEN: Soft, nontender. Positive bowel sounds. EXTREMITIES: Without any cyanosis. NEUROLOGIC: Normal speech, normal tone PSYCHIATRIC: Normal affect, normal mood. SKIN: No ulcerations Problems: Disposition home CONDITION AT DISCHARGE: Improved Diet regular Scheduled Levothyroxine Sodium (Levothyroxine Sodium), 125 MCG PO DAILYAC, (Reported) Pregabalin (Lyrica), 300 MG PO DAILY, (Reported) Pregabalin (Lyrica), 150 MG PO HS, (Reported) Tramadol Hcl (Tramadol Hcl), 1 TAB PO BID, (Reported) Trazodone Hcl (Trazodone Hcl), 425 MG PO HS, (Reported) Venlafaxine Hcl (Effexor Xr), 300 MG PO DAILY, (Reported) Zolpidem Tartrate (Ambien), 10 MG PO HS, (Reported) Scheduled PRN Alprazolam (Alprazolam), 1 MG PO PRN Q6HRS PRN for ANXIETY / AGITATION, ( Reported) Cyclobenzaprine Hcl (Cyclobenzaprine Hcl), 10 MG PO PRN Q6HRS PRN for MUSCLE SPASMS Oxycodone Hcl/Acetaminophen (Oxycodone-Acetaminophen 5-325), 2 TAB PO PRN Q4HRS PRN for MODERATE TO SEVERE PAIN Follow Up pcp NEYDA Frost MD September 20, 2016 13:12
[2016-09-20 14:53] VITALS: BP 102/59
[2016-09-20] MEDS: ENOXAPARIN 40 MG/0.4 ML SYRINGE. SQ SCH (15:39)
== END 2016-09-20 16:30 | disposition home or self-care (01) | DRG 552 ==
LOC: ER 22:12 → 6 SOUTH 23:30
PROVIDERS: ADMIT Internal Medicine; ATTEND Internal Medicine
DX: M51.36 Other intervertebral disc degeneration, lumbar region (principal); F41.9 Anxiety disorder, unspecified; M54.16 Radiculopathy, lumbar region; E03.9 Hypothyroidism, unspecified; W19.XXXA Unspecified fall, initial encounter; E66.9 Obesity, unspecified; F32.9 Major depressive disorder, single episode, unspecified; M19.90 Unspecified osteoarthritis, unspecified site; T39.395A Adverse effect of other nonsteroidal anti-inflammatory drugs [NSAID], initial encounter; G62.9 Polyneuropathy, unspecified; Z87.11 Personal history of peptic ulcer disease; Z90.49 Acquired absence of other specified parts of digestive tract; Z82.49 Family history of ischemic heart disease and other diseases of the circulatory system; Z90.710 Acquired absence of both cervix and uterus; Z98.82 Breast implant status; Y92.89 Other specified places as the place of occurrence of the external cause; Y99.9 Unspecified external cause status; Y93.K1 Activity, walking an animal; Z68.33 Body mass index [BMI] 33.0-33.9, adult; Z88.8 Allergy status to other drugs, medicaments and biological substances; Z88.6 Allergy status to analgesic agent; Z91.041 Radiographic dye allergy status
CPT/HCPCS: 36415; 71010; 72148; 80048; 80061; 81001; 83735; 84439; 84443; 84484; 85027; 93005; 96374; 96375; G0481; J1100; J1650; J2060; J2270; J2405; J3010; 99285-25

== ENCOUNTER 2016-10-09 04:33 | Inpatient (IN) | payer MEDICARE, OTHER ==
[~2016-10-09] VITALS: Ht 175.3 cm; Wt 102.1 kg
[~2016-10-09 04:33] MED LIST changes: +ALPR1TAB6 PO; +CYCL10TA2 PO; +OXYC1TAB7 PO; +PREG300C PO; +TRAM50TA PO; +VENL150C PO; +ZOLP10TA PO
[2016-10-09 05:11] LABS: BASO % 1 % (0-3); EOS % 2 % (0-3); HEMATOCRIT 36.1 % (36.0-47.0); LYMPH # 2.7 x10^3/uL (1.0-4.8); LYMPH % 40 % (24-48); MEAN CORPUSCULAR HEMOGLOBIN 30 pg (25-35); MEAN CORPUSCULAR HGB CONC 33 g/dL (31-37); MEAN CORPUSCULAR VOLUME 91 fL (79-100); MONO % 8 % (0-9); NEUT % 50 % (31-73); PLATELET COUNT 183 x10^3/uL (140-400); RED BLOOD COUNT 3.96 x10^6/uL (3.50-5.40); RED CELL DISTRIBUTION WIDTH 15.2 % (11.5-14.5); WHITE BLOOD COUNT 6.6 x10^3/uL (4.0-11.0)
[2016-10-09 05:22] LABS: PROTHROMBIN TIME PATIENT 12.4 SEC (11.7-14.0)
[2016-10-09 05:48] LABS: CALCIUM 8.4 mg/dL (8.5-10.1); CREATININE 0.9 mg/dL (0.6-1.0); GFR 64.8; POTASSIUM 3.9 mmol/L (3.5-5.1)
[2016-10-09 05:56] LABS: ALBUMIN 3.4 g/dL (3.4-5.0); ALBUMIN/GLOBULIN RATIO 1.1 (1.0-1.7); TOTAL BILIRUBIN 0.2 mg/dL (0.2-1.0); TOTAL PROTEIN 6.6 g/dL (6.4-8.2)
[2016-10-09] MEDS ORDERED: HYDROmorphone 2 MG/ML VIAL IV ONE ×3 (06:00→18:15)
[2016-10-09] MEDS ORDERED: ONDANSETRON PF 4 MG/2 ML VIAL. IV ONE (06:00)
--- NOTE | 2016-10-09 06:43 | PHYS DOC ---
Past Medical History Past Medical History: Depression, Other Additional Past Medical Histor: Lupus Past Surgical History: Appendectomy, Cholecystectomy, , Hysterectomy, Other Additional Past Surgical Histo: breast implants and removal, rt ankle Alcohol Use: Rarely Drug Use: None Adult General Chief Complaint Chief Complaint: ABDOMINAL PAIN HPI HPI Patient is a 55 year old female presenting to the emergency department for evaluation of diffuse abdominal pain worse in her epigastrium and associated with coffee-ground emesis 2 episodes this morning. Says that she is on steroids for her lupus and that she has had a GI bleed before in the past when she was on NSAIDs but she is not taking NSAIDs currently. She denies any alcohol or blood thinner use. Patient is demanding IV Dilaudid and says that she is very sick to her stomach. She says that she had an EGD and colonoscopy in [facility] 2 years ago and she says the only thing it revealed was polyps. Review of Systems Review of Systems Constitutional: Denies fever or chills [] Eyes: Denies change in visual acuity, redness, or eye pain [] HENT: Denies nasal congestion or sore throat [] Respiratory: Denies cough or shortness of breath [] Cardiovascular: No additional information not addressed in HPI [] GI: + abdominal pain, nausea, vomiting, diarrhea [] : Denies dysuria or hematuria [] Musculoskeletal: Denies back pain or joint pain [] Integument: Denies rash or skin lesions [] Neurologic: Denies headache, focal weakness or sensory changes [] Current Medications Current Medications Current Medications Medications (Trade) Dose Ordered Sig/Queta Start Time Stop Time Status Last Admin Dose Admin Fentanyl Citrate (Fentanyl 2ml Vial) 50 mcg PRN Q2HR PRN 10/09/16 07:45 10/10/16 07:44 Hydromorphone HCl (Dilaudid) 1 mg 1X ONCE 10/09/16 07:45 10/09/16 07:46 DC 10/09/16 07:41 1 MG Ondansetron HCl (Zofran) 4 mg PRN Q8HRS PRN 10/09/16 07:45 10/10/16 07:44 Pantoprazole Sodium (Protonix Vial) 80 mg 1X ONCE 10/09/16 07:00 10/09/16 07:01 DC 10/09/16 07:17 80 MG Allergies Allergies Allergies Coded Allergies Type Severity Reaction Last Updated Verified gabapentin Allergy Intermediate 10/09/16 Yes NSAIDS (Non-Steroidal Anti-Inflamma Allergy Mild Nausea and Vomiting 10/09/16 Yes Physical Exam Physical Exam Constitutional: Well developed, well nourished, no acute distress, non-toxic appearance. [] HENT: Normocephalic, atraumatic, bilateral external ears normal, oropharynx moist, no oral exudates, nose normal. [] Eyes: PERRLA, EOMI, conjunctiva normal, no discharge. [] Neck: Normal range of motion, no tenderness, supple, no stridor. [] Cardiovascular:Heart rate regular rhythm, no murmur [] Lungs & Thorax: Bilateral breath sounds clear to auscultation [] Abdomen: Bowel sounds normal, soft, positive diffuse tenderness, no rebound or guarding, no masses, no pulsatile masses. [] Skin: Warm, dry, no erythema, no rash. [] Back: No tenderness, no CVA tenderness. [] Extremities: No tenderness, no cyanosis, no clubbing, ROM intact, no edema. [] Neurologic: Alert and oriented X 3, normal motor function, normal sensory function, no focal deficits noted. [] Current Patient Data Vital Signs Vital Signs Date Time Temp Pulse Resp B/P (MAP) Pulse Ox O2 Delivery O2 Flow Rate FiO2 10/09/16 07:41 18 96 Room Air 10/09/16 04:54 98.4 87 119/64 (82) 98.4 Lab Values Laboratory Tests Test 10/09/16 04:56 White Blood Count 6.6 x10^3/uL (4.0-11.0) Red Blood Count 3.96 x10^6/uL (3.50-5.40) Hemoglobin 12.0 g/dL (12.0-15.5) Hematocrit 36.1 % (36.0-47.0) Mean Corpuscular Volume 91 fL (79-100) Mean Corpuscular Hemoglobin 30 pg (25-35) Mean Corpuscular Hemoglobin Concent 33 g/dL (31-37) Red Cell Distribution Width 15.2 % (11.5-14.5) H Platelet Count 183 x10^3/uL (140-400) Neutrophils (%) (Auto) 50 % (31-73) Lymphocytes (%) (Auto) 40 % (24-48) Monocytes (%) (Auto) 8 % (0-9) Eosinophils (%) (Auto) 2 % (0-3) Basophils (%) (Auto) 1 % (0-3) Neutrophils # (Auto) 3.3 x10^3uL (1.8-7.7) Lymphocytes # (Auto) 2.7 x10^3/uL (1.0-4.8) Monocytes # (Auto) 0.5 x10^3/uL (0.0-1.1) Eosinophils # (Auto) 0.1 x10^3/uL (0.0-0.7) Basophils # (Auto) 0.0 x10^3/uL (0.0-0.2) Prothrombin Time 12.4 SEC (11.7-14.0) Prothrombin Time INR 1.0 (0.8-1.1) PTT 29 SEC (24-38) Sodium Level 141 mmol/L (136-145) Potassium Level 3.9 mmol/L (3.5-5.1) Chloride Level 103 mmol/L (98-107) Carbon Dioxide Level 32 mmol/L (21-32) Anion Gap 6 (6-14) Blood Urea Nitrogen 16 mg/dL (7-20) Creatinine 0.9 mg/dL (0.6-1.0) Estimated GFR (Cockcroft-Gault) 64.8 BUN/Creatinine Ratio 18 (6-20) Glucose Level 86 mg/dL (70-99) Calcium Level 8.4 mg/dL (8.5-10.1) L Magnesium Level 2.2 mg/dL (1.8-2.4) Total Bilirubin 0.2 mg/dL (0.2-1.0) Aspartate Amino Transferase (AST) 15 U/L (15-37) Alanine Aminotransferase (ALT) 24 U/L (14-59) Alkaline Phosphatase 90 U/L (46-116) Creatine Kinase 31 U/L (26-192) Total Protein 6.6 g/dL (6.4-8.2) Albumin 3.4 g/dL (3.4-5.0) Albumin/Globulin Ratio 1.1 (1.0-1.7) Lipase 98 U/L (73-393) Ethyl Alcohol Level < 10 mg/dL (0-10) Laboratory Tests 10/09/16 04:56 Laboratory Tests 10/09/16 04:56 EKG EKG [] Radiology/Procedures Radiology/Procedures EXAM: CT abdomen/pelvis without contrast. HISTORY: Lower abdominal pain. TECHNIQUE: Computed tomography of the abdomen and pelvis was performed without intravenous contrast. COMPARISON: None. FINDINGS: Lung windows through the visualized portions of the bases reveal a small hiatal hernia containing mostly fat. Bone windows reveal no suspicious lesions. Cholecystectomy clips are noted. The liver, pancreas, adrenal glands and spleen are unremarkable without contrast. A cyst in the left kidney measures 2.2 cm. The uterus is surgically absent. Stool throughout the colon is consistent with constipation. The appendix is not visualized and is likely surgically absent. There is no obstruction. No inflammatory changes are seen. There are no pathologically enlarged lymph nodes. IMPRESSION: 1. Correlate for mild constipation. 2. Correlate for hysterectomy and appendectomy. 3. Small hiatal hernia containing mostly fat. *One or more of the following individualized dose reduction techniques were utilized for this examination: 1. Automated exposure control. 2. Adjustment of the mA and/or kV according to patient size. 3. Use of iterative reconstruction technique. DICTATED and SIGNED BY: CORINNA TERAN MD DATE: 10/09/16712 Course & Med Decision Making Course & Med Decision Making Patient with possible upper GI bleed. We'll get labs checked symptoms and reassess. I spoke to Dr. Handley and he said that he would likely scope her later on today. Patient admitted in stable condition with no needs for transfusion or emergent treatment. Dragon Disclaimer Dragon Disclaimer This electronic medical record was generated, in whole or in part, using a voice recognition dictation system. Departure Departure Impression: Primary Impression: GI bleed Additional Impression: Abdominal pain Disposition: 09 ADMITTED INPATIENT Admitting Physician: Duece Benoit Condition: STABLE Referrals: NO PCP (PCP) Problem Qualifiers Primary Impression: GI bleed GI bleed type/associated pathology: unspecified gastrointestinal hemorrhage type Qualified Codes: K92.2 - Gastrointestinal hemorrhage, unspecified BARBRA BARR DO Oct 09, 2016 06:43
[2016-10-09 07:00] LABS: MAGNESIUM 2.2 mg/dL (1.8-2.4)
[2016-10-09] MEDS ORDERED: PANTOPRAZOLE IV PUSH 40 MG VIAL. IVP ONE (07:00)
--- NOTE | 2016-10-09 07:20 | RAD ---
EXAM: CT abdomen/pelvis without contrast. HISTORY: Lower abdominal pain. TECHNIQUE: Computed tomography of the abdomen and pelvis was performed without intravenous contrast. COMPARISON: None. FINDINGS: Lung windows through the visualized portions of the bases reveal a small hiatal hernia containing mostly fat. Bone windows reveal no suspicious lesions. Cholecystectomy clips are noted. The liver, pancreas, adrenal glands and spleen are unremarkable without contrast. A cyst in the left kidney measures 2.2 cm. The uterus is surgically absent. Stool throughout the colon is consistent with constipation. The appendix is not visualized and is likely surgically absent. There is no obstruction. No inflammatory changes are seen. There are no pathologically enlarged lymph nodes. IMPRESSION: 1. Correlate for mild constipation. 2. Correlate for hysterectomy and appendectomy. 3. Small hiatal hernia containing mostly fat. *One or more of the following individualized dose reduction techniques were utilized for this examination: 1. Automated exposure control. 2. Adjustment of the mA and/or kV according to patient size. 3. Use of iterative reconstruction technique.
[2016-10-09] MEDS ORDERED: ONDANSETRON PF 4 MG/2 ML VIAL. IV PRN (07:45)
[2016-10-09] MEDS ORDERED: fentaNYL PF VIAL 100 MCG/2 ML VIAL IV PRN (07:45)
[2016-10-09] MEDS ORDERED: HALOPERIDOL LACTATE 5 MG/ML VIAL. IVP ONE (08:45)
--- NOTE | 2016-10-09 08:55 | ACF ---
Admit Criteria Forms Admit Criteria Forms Admit Criteria Forms ABDOMINAL PAIN Clinical Indications for Admission to Inpatient Care (Place 'X' for any and all applicable criteria): Admission is indicated for ANY ONE of the following(1)(2)(3)(4)(5): [X]I. Inpatient admission required rather than observation care (Also use Abdominal Pain: Observation Care, as appropriate) because of ANY ONE of the following: [ ]a) Severe pain requiring acute inpatient management [X]b) Identification of etiology/finding that requires inpatient care (eg, aortic dissection, free air) [ ]c) Absent bowel sounds with complete ileus(6) [ ]d) Suspected toxic megacolon [ ]e) Severe electrolyte abnormalities requiring inpatient care [ ]f) High fever or infection requiring inpatient admission as indicated by ANY ONE of following(7)(8): [ ] i) Appropriate outpatient or observational care antimicrobial treatment unavailable, not effective, or not feasible [ ] ii) Documented bacteremia [ ] iii) Temperature > 104.9 degrees F (oral) [ ] iv) T >103.1 F (oral) or < 96.8 F(rectal) that does not respond to all emergency treatment measures [ ]g) Signs of intestinal obstruction [B] [ ]h) Hemodynamic instability [ ]i) IV fluid to replace significant ongoing losses (greater than 3 L/m2 per day) (12)(13) [ ]j) Percutaneous or open drainage (eg, abscess, biliary tract ) procedures [ ]k) Parenteral nutrition regimen that must be implemented on inpatient basis [ ]l) Other condition,treatment or monitoring requiring inpatient admission. [ ]II. Peritoneal signs present [ ]III. Surgery needed that cannot be performed on an ambulatory basis. [ ]IV. Evaluation requires patient to not eat or drink for extended period ( eg, more than 24 hours). [ ]V. Contraindications and/or Inappropriate clinical situations for Observational Care in patients with abdominal pain, when ANY ONE of the following is required: [ ]a) Thorough evaluation is required to prevent catastrophic events due to delays in diagnosing (e.g.Mesenteric ischemia) 1,3 [ ]b) Patient with severe pathology or with chronic symptoms unlikely to improve in the ED stay (3) [ ]. General contraindications and/or Inappropriate clinical situations for Observational Care in patients with abdominal pain, when ANY ONE of the following is required: [ ]a) Prediction of prolongation of LOS based on ANY ONE of the following may be considered as a contraindication for observational care 2, 3, 4, 5, 6, 7, 8, 9, 10, 11 [ ]i) Age > 65 yrs. [ ]ii) Patient arriving by ambulance [ ]iii) Patient with high acuity [ ]iv) Patient requiring vital sign monitoring [ ]v) Patient on IV medication [ ]b) Systolic blood pressures 180mmHg 3,12 [ ]c) Patient with altered mental status including delirium and other alteration of consciousness, (3) [ ]d) Patient whose discharge disposition will be to a [facility] home or rehabilitation home should not be managed in Emergency Department Observation Unit. CMS rule requires 3 days hospital stay before such placement.3,13 [ ]e) Patient with failure to thrive due to broad array of etiologies 3,16,17 [ ]f) Inability to ambulate 3,14 Extended stay beyond goal length of stay may be needed for(2)(3): [ ]a) Persistent abdominal pain with suspected intra-abdominal process [ ]b) Diagnosed condition requiring continued stay (e.g., pancreatitis, complicated diverticulitis) [ ]c) Surgery (e.g., colectomy) The original [employer] content created by [employer] has been revised. The portions of the content which have been revised are identified through the use of italic text or in bold, and [facility] [employer] [employer] has neither reviewed nor approved the modified material.All other unmodified content is copyright [employer]. Please see references footnoted in the original [employer] edition 2016 NOEL PATRICK Oct 09, 2016 08:54
--- NOTE | 2016-10-09 10:20 | PDOC2 ---
GI CONSULT Reason For Consult: GI Bleed HPI: HPI: 55 y/o admitted through the ER. H/o GI bleed/PUD attributed to NSAIDs ~2 years ago in [place]. Had EGD and colonoscopy at that time, unclear re: cautery/ clip. Was taking NSAIDs for lupus which were discontinued, then tried Imuran ( seems caused hepatotoxicity/?neutropenia), then was untreated for awhile, most recently has been taking Tramadol and prednisone (x2 weeks, was seen at another ER). Has continued Protonix BID since. Wasn't feeling well yesterday, then awoke w/ nausea overnight and began vomiting. First looked like "blueberries" then coffee-grounds. Significant upper abdominal pain. Repeatedly requesting Dilaudid. Labs: Hgb 12 w/ elevated RDW, INR 1, CMP unremarkable. CT also unrevealing. Was given IV PPI, kept NPO. No diarrhea, constipation, hematochezia, melena. PMH: PMH: SLE, anxiety/depression, PUD, hiatal hernia, peripheral neuropathy, , cholecystectomy, appendectomy, hysterectomy, breast augmentation x 2, right ankle surgery, left shoulder surgery FH: Family History: Cancer (sister - breast) Social History: Smoke: No ALCOHOL: rare Drugs: None ROS: GEN: Denies fevers, chills, sweats HEENT: Denies blurred vision, sore throat CV: Denies chest pain RESP: Denies shortness of air, cough GI: Per HPI : Denies hematuria, dysuria ENDO: Denies weight changes NEURO: Denies confusion, dizziness MSK: Denies weakness, joint pain/swelling SKIN: Denies jaundice, pruritus Vitals: Vitals: Vital Signs Date Time Temp Pulse Resp B/P (MAP) Pulse Ox O2 Delivery O2 Flow Rate FiO2 10/09/16 09:25 78 20 118/74 (89) 95 Room Air 10/09/16 04:54 98.4 98.4 Labs: Labs: Laboratory Tests Test 10/09/16 04:56 White Blood Count 6.6 x10^3/uL (4.0-11.0) Red Blood Count 3.96 x10^6/uL (3.50-5.40) Hemoglobin 12.0 g/dL (12.0-15.5) Hematocrit 36.1 % (36.0-47.0) Mean Corpuscular Volume 91 fL (79-100) Mean Corpuscular Hemoglobin 30 pg (25-35) Mean Corpuscular Hemoglobin Concent 33 g/dL (31-37) Red Cell Distribution Width 15.2 % (11.5-14.5) Platelet Count 183 x10^3/uL (140-400) Neutrophils (%) (Auto) 50 % (31-73) Lymphocytes (%) (Auto) 40 % (24-48) Monocytes (%) (Auto) 8 % (0-9) Eosinophils (%) (Auto) 2 % (0-3) Basophils (%) (Auto) 1 % (0-3) Neutrophils # (Auto) 3.3 x10^3uL (1.8-7.7) Lymphocytes # (Auto) 2.7 x10^3/uL (1.0-4.8) Monocytes # (Auto) 0.5 x10^3/uL (0.0-1.1) Eosinophils # (Auto) 0.1 x10^3/uL (0.0-0.7) Basophils # (Auto) 0.0 x10^3/uL (0.0-0.2) Prothrombin Time 12.4 SEC (11.7-14.0) Prothromb Time International Ratio 1.0 (0.8-1.1) Activated Partial Thromboplast Time 29 SEC (24-38) Sodium Level 141 mmol/L (136-145) Potassium Level 3.9 mmol/L (3.5-5.1) Chloride Level 103 mmol/L (98-107) Carbon Dioxide Level 32 mmol/L (21-32) Anion Gap 6 (6-14) Blood Urea Nitrogen 16 mg/dL (7-20) Creatinine 0.9 mg/dL (0.6-1.0) Estimated GFR (Cockcroft-Gault) 64.8 BUN/Creatinine Ratio 18 (6-20) Glucose Level 86 mg/dL (70-99) Calcium Level 8.4 mg/dL (8.5-10.1) Magnesium Level 2.2 mg/dL (1.8-2.4) Total Bilirubin 0.2 mg/dL (0.2-1.0) Aspartate Amino Transf (AST/SGOT) 15 U/L (15-37) Alanine Aminotransferase (ALT/SGPT) 24 U/L (14-59) Alkaline Phosphatase 90 U/L (46-116) Creatine Kinase 31 U/L (26-192) Total Protein 6.6 g/dL (6.4-8.2) Albumin 3.4 g/dL (3.4-5.0) Albumin/Globulin Ratio 1.1 (1.0-1.7) Lipase 98 U/L (73-393) Ethyl Alcohol Level < 10 mg/dL (0-10) Allergies: Coded Allergies: gabapentin (Verified Allergy, Intermediate, 10/09/16) NSAIDS (Non-Steroidal Anti-Inflamma (Verified Allergy, Mild, Nausea and Vomiting, 10/09/16) Medications: Current Medications Medications (Trade) Dose Ordered Sig/Queta Route PRN Reason Start Time Stop Time Status Last Admin Dose Admin Hydromorphone HCl (Dilaudid) 1 mg 1X ONCE IV 10/09/16 06:00 10/09/16 06:01 DC 10/09/16 06:05 Ondansetron HCl (Zofran) 4 mg 1X ONCE IV 10/09/16 06:00 10/09/16 06:01 DC 10/09/16 06:05 Pantoprazole Sodium (Protonix Vial) 80 mg 1X ONCE IVP 10/09/16 07:00 10/09/16 07:01 DC 10/09/16 07:17 Hydromorphone HCl (Dilaudid) 1 mg 1X ONCE IV 10/09/16 07:45 10/09/16 07:46 DC 10/09/16 07:41 Imaging: Imaging: CT A/P w/o contrast IMPRESSION: 1. Correlate for mild constipation. 2. Correlate for hysterectomy and appendectomy. 3. Small hiatal hernia containing mostly fat. PE: GEN: NAD, sitting up in bed, wearing her own pajamas, combing hair HEENT: Atraumatic, PERRL LUNGS: CTAB anteriorly HEART: RRR ABD: BS+, epigastric and BLQ discomfort, overweight EXTREMITY: No edema SKIN: No rashes, no jaundice NEURO/PSYCH: A & O 3 A/P: A/P: Coffee-ground emesis, upper abd pain -onset overnight, Hgb WNL H/o PUD -similar symptoms w/ EGD ~2 years ago in [place], attributed to NSAIDs -has been on PPI BID since CRC screen, h/o colon polyps -colonoscopy in [place] ~2 years ago SLE -started prednisone ~2 weeks ago -- Continue NPO, PPI. EGD martinaight r/o recurrent PUD. ORLANDO ANAND Oct 09, 2016 10:20
[2016-10-09] MEDS ORDERED: PANTOPRAZOLE IV PUSH 40 MG VIAL. IVP SCH (10:30)
[2016-10-09 11:00] VITALS: BP 107/79
[2016-10-09] MEDS ORDERED: HYDROmorphone 2 MG/ML VIAL IV PRN ×2 (12:15→13:00)
[2016-10-09 15:00] VITALS: BP 119/63
[2016-10-09] MEDS ORDERED: hydrALAZINE 20 MG/ML VIAL. IVP PRN (15:00)
[2016-10-09] MEDS ORDERED: CYCLOBENZAPRINE 10 MG TABLET. PO PRN (15:00)
[2016-10-09] MEDS ORDERED: MORPHINE SULFATE 2 MG/ML DISP.SYRIN. IV PRN (15:00)
[2016-10-09] MEDS ORDERED: DOCUSATE SODIUM 100 MG CAPSULE. PO PRN (15:00)
[2016-10-09] MEDS ORDERED: traMADol 50 MG TABLET PO PRN (15:00)
[2016-10-09] MEDS ORDERED: oxyCODONE/APAP 5/325 1 TAB TABLET PO PRN (15:00)
--- NOTE | 2016-10-09 15:02 | PDOC1 ---
History and Physical Date of Admission Date of Admission 10/09/16 Identification/Chief Complaint Chief Complaint coffee ground emesis Problems: Source Source: Chart review, Patient History of Present Illness History of Present Illness HPI HPI Patient is a 55 year old female presenting to the emergency department for evaluation of diffuse abdominal pain worse in her epigastrium and associated with coffee-ground emesis 2 episodes this morning. pt was Just DCed from here 2 weeks ago for chest pain with neg MPI, chronic back pain. pain meds seeker. Pt said she was taking prednisone 80mg daily in the past 2 weeks for pain control in [place]. then started to have abd pain yesterday, with coffee ground emesis x2 this am. The pain is mainly upper ABD, tenderness, no radiating , /. Pt very anxious, requires dilaudid and ativan iv now. Hb stable, CT abd neg. She said she had h/o gastric ulcer 2 years ago. Past Medical History Cardiovascular: No pertinent hx Pulmonary: No pertinent hx CENTRAL NERVOUS SYSTEM: Periperal neuropathy GI: Peptic Ulcer disease Heme/Onc: Other Hepatobiliary: No pertinent hx Psych: Anxiety Rheumatologic: No pertinent hx Infectious disease: No pertinent hx Renal/: No pertinent hx Endocrine: Hypothyroidism Past Surgical History Past Surgical History: Appendectomy, Arthroscopy, Cholecystectomy, , Hysterectomy, Other Family History Family History: Hypertension Social History Smoke: No ALCOHOL: rare Drugs: None Current Problem List Problem List Problems Medical Problems: (1) Abdominal pain Status: Acute (2) GI bleed Status: Acute Current Medications Current Medications Current Medications Medications (Trade) Dose Ordered Sig/Queta Start Time Stop Time Status Last Admin Dose Admin Fentanyl Citrate (Fentanyl 2ml Vial) 50 mcg PRN Q2HR PRN 10/09/16 07:45 10/10/16 07:44 10/09/16 10:36 50 MCG Haloperidol Lactate (Haldol) 4 mg 1X ONCE 10/09/16 08:45 10/09/16 08:46 DC Hydromorphone HCl (Dilaudid) 0.5 mg PRN Q3HRS PRN 10/09/16 13:00 Lorazepam (Ativan) 0.5 mg PRN Q6HRS PRN 10/09/16 13:00 10/09/16 13:18 0.5 MG Ondansetron HCl (Zofran) 4 mg PRN Q8HRS PRN 10/09/16 07:45 10/10/16 07:44 Pantoprazole Sodium (Protonix Vial) 40 mg BIDAC 10/09/16 16:30 Allergies Allergies Allergies Coded Allergies Type Severity Reaction Last Updated Verified gabapentin Allergy Intermediate 10/09/16 Yes NSAIDS (Non-Steroidal Anti-Inflamma Allergy Mild Nausea and Vomiting 10/09/16 Yes ROS Review of System CONSTITUTIONAL: No fever or chills EYES: No recent changes SKIN: No rash or itching CARDIOVASCULAR: No chest pain, syncope, palpitations, or edema RESPIRATORY: No SOB or cough GASTROINTESTINAL: No nausea, vomiting or abdominal pain NEUROLOGICAL: No headaches or weakness ENDOCRINE: No cold or heat intolerance GENITOURINARY: No urgency or frequency of urination MUSCULOSKELETAL: No back pain or joint pain LYMPHATICS: No enlarged lymph nodes PSYCHIATRIC: No anxiety or depression Physical Exam Physical Exam GEN.: No apparent distress. Alert and oriented. HEENT: Head is normocephalic, atraumatic NECK: Supple. LUNGS: Clear to auscultation. HEART: RRR, S1, S2 present. Peripheral pulses intact ABDOMEN: Soft, decreased bowel sounds. diffuse abd tenderness, mainly at epigastric area. EXTREMITIES: Without any cyanosis. NEUROLOGIC: Normal speech, normal tone PSYCHIATRIC: Normal affect, normal mood. SKIN: No ulcerations Vitals Vitals Vital Signs Date Time Temp Pulse Resp B/P (MAP) Pulse Ox O2 Delivery O2 Flow Rate FiO2 10/09/16 12:33 18 97 Room Air 10/09/16 11:00 97.5 77 107/79 (88) 97.5 Labs Labs Laboratory Tests Test 10/09/16 04:56 White Blood Count 6.6 x10^3/uL (4.0-11.0) Red Blood Count 3.96 x10^6/uL (3.50-5.40) Hemoglobin 12.0 g/dL (12.0-15.5) Hematocrit 36.1 % (36.0-47.0) Mean Corpuscular Volume 91 fL (79-100) Mean Corpuscular Hemoglobin 30 pg (25-35) Mean Corpuscular Hemoglobin Concent 33 g/dL (31-37) Red Cell Distribution Width 15.2 % (11.5-14.5) Platelet Count 183 x10^3/uL (140-400) Neutrophils (%) (Auto) 50 % (31-73) Lymphocytes (%) (Auto) 40 % (24-48) Monocytes (%) (Auto) 8 % (0-9) Eosinophils (%) (Auto) 2 % (0-3) Basophils (%) (Auto) 1 % (0-3) Neutrophils # (Auto) 3.3 x10^3uL (1.8-7.7) Lymphocytes # (Auto) 2.7 x10^3/uL (1.0-4.8) Monocytes # (Auto) 0.5 x10^3/uL (0.0-1.1) Eosinophils # (Auto) 0.1 x10^3/uL (0.0-0.7) Basophils # (Auto) 0.0 x10^3/uL (0.0-0.2) Prothrombin Time 12.4 SEC (11.7-14.0) Prothromb Time International Ratio 1.0 (0.8-1.1) Activated Partial Thromboplast Time 29 SEC (24-38) Sodium Level 141 mmol/L (136-145) Potassium Level 3.9 mmol/L (3.5-5.1) Chloride Level 103 mmol/L (98-107) Carbon Dioxide Level 32 mmol/L (21-32) Anion Gap 6 (6-14) Blood Urea Nitrogen 16 mg/dL (7-20) Creatinine 0.9 mg/dL (0.6-1.0) Estimated GFR (Cockcroft-Gault) 64.8 BUN/Creatinine Ratio 18 (6-20) Glucose Level 86 mg/dL (70-99) Calcium Level 8.4 mg/dL (8.5-10.1) Magnesium Level 2.2 mg/dL (1.8-2.4) Total Bilirubin 0.2 mg/dL (0.2-1.0) Aspartate Amino Transf (AST/SGOT) 15 U/L (15-37) Alanine Aminotransferase (ALT/SGPT) 24 U/L (14-59) Alkaline Phosphatase 90 U/L (46-116) Creatine Kinase 31 U/L (26-192) Total Protein 6.6 g/dL (6.4-8.2) Albumin 3.4 g/dL (3.4-5.0) Albumin/Globulin Ratio 1.1 (1.0-1.7) Lipase 98 U/L (73-393) Ethyl Alcohol Level < 10 mg/dL (0-10) Laboratory Tests Test 10/09/16 04:56 White Blood Count 6.6 x10^3/uL (4.0-11.0) Red Blood Count 3.96 x10^6/uL (3.50-5.40) Hemoglobin 12.0 g/dL (12.0-15.5) Hematocrit 36.1 % (36.0-47.0) Mean Corpuscular Volume 91 fL (79-100) Mean Corpuscular Hemoglobin 30 pg (25-35) Mean Corpuscular Hemoglobin Concent 33 g/dL (31-37) Red Cell Distribution Width 15.2 % (11.5-14.5) Platelet Count 183 x10^3/uL (140-400) Neutrophils (%) (Auto) 50 % (31-73) Lymphocytes (%) (Auto) 40 % (24-48) Monocytes (%) (Auto) 8 % (0-9) Eosinophils (%) (Auto) 2 % (0-3) Basophils (%) (Auto) 1 % (0-3) Neutrophils # (Auto) 3.3 x10^3uL (1.8-7.7) Lymphocytes # (Auto) 2.7 x10^3/uL (1.0-4.8) Monocytes # (Auto) 0.5 x10^3/uL (0.0-1.1) Eosinophils # (Auto) 0.1 x10^3/uL (0.0-0.7) Basophils # (Auto) 0.0 x10^3/uL (0.0-0.2) Prothrombin Time 12.4 SEC (11.7-14.0) Prothromb Time International Ratio 1.0 (0.8-1.1) Activated Partial Thromboplast Time 29 SEC (24-38) Sodium Level 141 mmol/L (136-145) Potassium Level 3.9 mmol/L (3.5-5.1) Chloride Level 103 mmol/L (98-107) Carbon Dioxide Level 32 mmol/L (21-32) Anion Gap 6 (6-14) Blood Urea Nitrogen 16 mg/dL (7-20) Creatinine 0.9 mg/dL (0.6-1.0) Estimated GFR (Cockcroft-Gault) 64.8 BUN/Creatinine Ratio 18 (6-20) Glucose Level 86 mg/dL (70-99) Calcium Level 8.4 mg/dL (8.5-10.1) Magnesium Level 2.2 mg/dL (1.8-2.4) Total Bilirubin 0.2 mg/dL (0.2-1.0) Aspartate Amino Transf (AST/SGOT) 15 U/L (15-37) Alanine Aminotransferase (ALT/SGPT) 24 U/L (14-59) Alkaline Phosphatase 90 U/L (46-116) Creatine Kinase 31 U/L (26-192) Total Protein 6.6 g/dL (6.4-8.2) Albumin 3.4 g/dL (3.4-5.0) Albumin/Globulin Ratio 1.1 (1.0-1.7) Lipase 98 U/L (73-393) Ethyl Alcohol Level < 10 mg/dL (0-10) VTE Prophylaxis Ordered VTE Prophylaxis Devices: Yes VTE Pharmacological Prophylaxi: No Assessment/Plan Assessment/Plan 1. coffee ground emesis with possible uGIB 2. chronic lower back pain, 2/2 OA, or muscle spasm 3 bipoloar disorder, 1 4. h/o lupus, no meds 5. likely pain meds seeker 6. obesity 7. hypothyroidism plan: fu with gi, EGD today monitor hb tmr ivf npo for now pain control cont home meds ppi bid NEYDA WALTON MD Oct 09, 2016 15:02
[2016-10-09] MEDS: carBAMazepine 200 MG TABLET PO SCH (15:30)
[2016-10-09] MEDS: traMADol 50 MG TABLET PO SCH (16:00)
[2016-10-09] MEDS: ALPRAZolam 1 MG TABLET PO SCH ×2 (16:00→20:44)
[2016-10-09] MEDS: PANTOPRAZOLE IV PUSH 40 MG VIAL. IVP SCH (16:30)
[2016-10-09] MEDS ORDERED: MIDAZOLAM HCL/PF 5 MG/5 ML VIAL. ONE (16:55)
[2016-10-09] MEDS ORDERED: PROPOFOL 20 ML IV ONE (16:59)
[2016-10-09] MEDS ORDERED: LIDOCAINE 2% PF Vial for OR 5 ML VIAL. ONE (16:59)
[2016-10-09] MEDS: IV RINGERS,LACTATED 1000ML 1,000 ML IV SCH (17:00)
--- NOTE | 2016-10-09 17:13 | PDOC4 ---
Operative Note Operative Note EGD Meds propofol per anesthesia Pre-op dx coffee ground emesis POst-op dx erosive gastritis Plan medical therapy with ppi advance diet cbc in am to assess for ongoing bleeding SHERRIE ULLOA MD Oct 09, 2016 17:13
[2016-10-09 19:32] VITALS: BP 99/72
[2016-10-09] MEDS: HYDROmorphone 2 MG/ML VIAL IV PRN (20:44)
[2016-10-09] MEDS: PREGABALIN 75 MG CAPSULE PO SCH (20:44)
[2016-10-09] MEDS: ZOLPIDEM 5 MG TABLET. PO SCH ×2 (20:44→22:17)
[2016-10-09] MEDS: IV NORMAL SALINE 1000ML BAG 1,000 ML IV SCH (22:17)
[2016-10-09 23:00] VITALS: BP 134/73
[2016-10-10] MEDS: HYDROmorphone 2 MG/ML VIAL IV PRN ×5 (00:23→23:38)
[2016-10-10] MEDS: ALPRAZolam 1 MG TABLET PO PRN ×2 (00:26→21:17)
[2016-10-10] MEDS: IV RINGERS,LACTATED 1000ML 1,000 ML IV SCH (00:57)
[2016-10-10] MEDS: IV NORMAL SALINE 1000ML BAG 1,000 ML IV SCH ×2 (04:20→13:43)
[2016-10-10 05:45] VITALS: BP 152/102
[2016-10-10] MEDS: LEVOTHYROXINE 125 MCG TABLET PO SCH (05:48)
[2016-10-10] MEDS: ONDANSETRON PF 4 MG/2 ML VIAL. IV PRN ×2 (05:50→13:41)
[2016-10-10 07:00] VITALS: BP 125/73
[2016-10-10] MEDS: PANTOPRAZOLE IV PUSH 40 MG VIAL. IVP SCH (08:41)
[2016-10-10] MEDS: carBAMazepine 200 MG TABLET PO SCH (08:42)
[2016-10-10] MEDS: PREGABALIN 75 MG CAPSULE PO SCH ×2 (08:42→22:09)
[2016-10-10] MEDS: VENLAFAXINE 50 MG TABLET. PO SCH ×3 (08:42→22:07)
[2016-10-10] MEDS: ALPRAZolam 1 MG TABLET PO SCH (08:43)
[2016-10-10] MEDS: traMADol 50 MG TABLET PO SCH ×2 (08:43→22:08)
[2016-10-10 09:43] LABS: BASO % 0 % (0-3); EOS % 0 % (0-3); HEMATOCRIT 38.7 % (36.0-47.0); HEMOGLOBIN 13.4 g/dL (12.0-15.5); LYMPH # 1.1 x10^3/uL (1.0-4.8); LYMPH % 15 % (24-48); MEAN CORPUSCULAR HEMOGLOBIN 31 pg (25-35); MEAN CORPUSCULAR HGB CONC 35 g/dL (31-37); MEAN CORPUSCULAR VOLUME 90 fL (79-100); MONO % 6 % (0-9); NEUT % 79 % (31-73); PLATELET COUNT 182 x10^3/uL (140-400); RED BLOOD COUNT 4.32 x10^6/uL (3.50-5.40); RED CELL DISTRIBUTION WIDTH 15.3 % (11.5-14.5); WHITE BLOOD COUNT 7.8 x10^3/uL (4.0-11.0)
[2016-10-10 09:45] LABS: CALCIUM 8.6 mg/dL (8.5-10.1); CREATININE 0.6 mg/dL (0.6-1.0); GFR 103.4; POTASSIUM 4.6 mmol/L (3.5-5.1)
[2016-10-10 11:00] VITALS: BP 115/79
--- NOTE | 2016-10-10 12:26 | PDOC ---
Subjective: Subjective: Pain is better, no bleeding, not hungry, maybe some nausea. Objective: Objective: Per RN - no bleeding, sleepy today, still asks for Dilaudid. Reviewed nursing notes. Vital Signs: Vital Signs Date Time Temp Pulse Resp B/P (MAP) Pulse Ox O2 Delivery O2 Flow Rate FiO2 10/10/16 11:00 98.6 96 18 115/79 (91) 88 Room Air 98.6 10/10/16 10:59 2.0 Labs: Laboratory Tests Test 10/10/16 09:00 White Blood Count 7.8 x10^3/uL Red Blood Count 4.32 x10^6/uL Hemoglobin 13.4 g/dL Hematocrit 38.7 % Mean Corpuscular Volume 90 fL Mean Corpuscular Hemoglobin 31 pg Mean Corpuscular Hemoglobin Concent 35 g/dL Red Cell Distribution Width 15.3 % Platelet Count 182 x10^3/uL Neutrophils (%) (Auto) 79 % Lymphocytes (%) (Auto) 15 % Monocytes (%) (Auto) 6 % Eosinophils (%) (Auto) 0 % Basophils (%) (Auto) 0 % Neutrophils # (Auto) 6.2 x10^3uL Lymphocytes # (Auto) 1.1 x10^3/uL Monocytes # (Auto) 0.4 x10^3/uL Eosinophils # (Auto) 0.0 x10^3/uL Basophils # (Auto) 0.0 x10^3/uL Sodium Level 139 mmol/L Potassium Level 4.6 mmol/L Chloride Level 103 mmol/L Carbon Dioxide Level 32 mmol/L Anion Gap 4 Blood Urea Nitrogen 14 mg/dL Creatinine 0.6 mg/dL Estimated GFR (Cockcroft-Gault) 103.4 Glucose Level 115 mg/dL Calcium Level 8.6 mg/dL Imaging: EGD 10/09/16: erosive gastritis. PE: GEN: NAD LUNGS: clear HEART: RRR ABD: soft, non-tender NEURO/PSYCH: drowsy A/P: Coffee-ground emesis - prior to admission, no recurrence -Hgb remains WNL -on PPI -erosive gastritis on EGD Abd pain - better -- Drowsy today. Continue PPI (change from IV to PO), diet as tolerated. ORLANDO ANAND Oct 10, 2016 12:26
--- NOTE | 2016-10-10 12:55 | PDOC ---
PROGRESS NOTES Chief Complaint Chief Complaint 1. coffee ground emesis with erosive gastritis on EGD 2. chronic lower back pain, 2/2 OA, or muscle spasm 3 bipoloar disorder, 1 4. h/o lupus, no meds 5. likely pain meds seeker 6. obesity 7. hypothyroidism plan: fu with gi, EGD 10/10 monitor hb tmr ivf regular diet as per gi, but pt refused. consider change to gi soft if ok with gi pain control cont home meds ppi bid dc tmr if ok with gi History of Present Illness History of Present Illness stating still severe abd pain Hb high Vitals Vitals Vital Signs Date Time Temp Pulse Resp B/P (MAP) Pulse Ox O2 Delivery O2 Flow Rate FiO2 10/10/16 11:00 98.6 96 18 115/79 (91) 88 Room Air 98.6 10/10/16 10:59 2.0 Physical Exam General: Alert, Oriented X3, Cooperative Heart: Regular rate, Normal S1, Normal S2 Lungs: Clear Abdomen: Normal bowel sounds, Soft, Other (epigastric area mild tenderness) Extremities: No clubbing, No cyanosis Skin: No rashes Labs LABS Laboratory Tests Test 10/10/16 09:00 White Blood Count 7.8 x10^3/uL (4.0-11.0) Red Blood Count 4.32 x10^6/uL (3.50-5.40) Hemoglobin 13.4 g/dL (12.0-15.5) Hematocrit 38.7 % (36.0-47.0) Mean Corpuscular Volume 90 fL (79-100) Mean Corpuscular Hemoglobin 31 pg (25-35) Mean Corpuscular Hemoglobin Concent 35 g/dL (31-37) Red Cell Distribution Width 15.3 % (11.5-14.5) Platelet Count 182 x10^3/uL (140-400) Neutrophils (%) (Auto) 79 % (31-73) Lymphocytes (%) (Auto) 15 % (24-48) Monocytes (%) (Auto) 6 % (0-9) Eosinophils (%) (Auto) 0 % (0-3) Basophils (%) (Auto) 0 % (0-3) Neutrophils # (Auto) 6.2 x10^3uL (1.8-7.7) Lymphocytes # (Auto) 1.1 x10^3/uL (1.0-4.8) Monocytes # (Auto) 0.4 x10^3/uL (0.0-1.1) Eosinophils # (Auto) 0.0 x10^3/uL (0.0-0.7) Basophils # (Auto) 0.0 x10^3/uL (0.0-0.2) Sodium Level 139 mmol/L (136-145) Potassium Level 4.6 mmol/L (3.5-5.1) Chloride Level 103 mmol/L (98-107) Carbon Dioxide Level 32 mmol/L (21-32) Anion Gap 4 (6-14) Blood Urea Nitrogen 14 mg/dL (7-20) Creatinine 0.6 mg/dL (0.6-1.0) Estimated GFR (Cockcroft-Gault) 103.4 Glucose Level 115 mg/dL (70-99) Calcium Level 8.6 mg/dL (8.5-10.1) Review of Systems Review of Systems no fever, chills, sob or chest pain Assessment and Plan Assessmemt and Plan Problems Medical Problems: (1) Abdominal pain Status: Acute (2) GI bleed Status: Acute Problems: Comment Review of Relevant I have reviewed the following items piyush (where applicable) has been applied. Labs Laboratory Tests Test 10/09/16 04:56 10/10/16 09:00 White Blood Count 6.6 x10^3/uL (4.0-11.0) 7.8 x10^3/uL (4.0-11.0) Red Blood Count 3.96 x10^6/uL (3.50-5.40) 4.32 x10^6/uL (3.50-5.40) Hemoglobin 12.0 g/dL (12.0-15.5) 13.4 g/dL (12.0-15.5) Hematocrit 36.1 % (36.0-47.0) 38.7 % (36.0-47.0) Mean Corpuscular Volume 91 fL (79-100) 90 fL (79-100) Mean Corpuscular Hemoglobin 30 pg (25-35) 31 pg (25-35) Mean Corpuscular Hemoglobin Concent 33 g/dL (31-37) 35 g/dL (31-37) Red Cell Distribution Width 15.2 % (11.5-14.5) 15.3 % (11.5-14.5) Platelet Count 183 x10^3/uL (140-400) 182 x10^3/uL (140-400) Neutrophils (%) (Auto) 50 % (31-73) 79 % (31-73) Lymphocytes (%) (Auto) 40 % (24-48) 15 % (24-48) Monocytes (%) (Auto) 8 % (0-9) 6 % (0-9) Eosinophils (%) (Auto) 2 % (0-3) 0 % (0-3) Basophils (%) (Auto) 1 % (0-3) 0 % (0-3) Neutrophils # (Auto) 3.3 x10^3uL (1.8-7.7) 6.2 x10^3uL (1.8-7.7) Lymphocytes # (Auto) 2.7 x10^3/uL (1.0-4.8) 1.1 x10^3/uL (1.0-4.8) Monocytes # (Auto) 0.5 x10^3/uL (0.0-1.1) 0.4 x10^3/uL (0.0-1.1) Eosinophils # (Auto) 0.1 x10^3/uL (0.0-0.7) 0.0 x10^3/uL (0.0-0.7) Basophils # (Auto) 0.0 x10^3/uL (0.0-0.2) 0.0 x10^3/uL (0.0-0.2) Prothrombin Time 12.4 SEC (11.7-14.0) Prothromb Time International Ratio 1.0 (0.8-1.1) Activated Partial Thromboplast Time 29 SEC (24-38) Sodium Level 141 mmol/L (136-145) 139 mmol/L (136-145) Potassium Level 3.9 mmol/L (3.5-5.1) 4.6 mmol/L (3.5-5.1) Chloride Level 103 mmol/L (98-107) 103 mmol/L (98-107) Carbon Dioxide Level 32 mmol/L (21-32) 32 mmol/L (21-32) Anion Gap 6 (6-14) 4 (6-14) Blood Urea Nitrogen 16 mg/dL (7-20) 14 mg/dL (7-20) Creatinine 0.9 mg/dL (0.6-1.0) 0.6 mg/dL (0.6-1.0) Estimated GFR (Cockcroft-Gault) 64.8 103.4 BUN/Creatinine Ratio 18 (6-20) Glucose Level 86 mg/dL (70-99) 115 mg/dL (70-99) Calcium Level 8.4 mg/dL (8.5-10.1) 8.6 mg/dL (8.5-10.1) Magnesium Level 2.2 mg/dL (1.8-2.4) Total Bilirubin 0.2 mg/dL (0.2-1.0) Aspartate Amino Transf (AST/SGOT) 15 U/L (15-37) Alanine Aminotransferase (ALT/SGPT) 24 U/L (14-59) Alkaline Phosphatase 90 U/L (46-116) Creatine Kinase 31 U/L (26-192) Total Protein 6.6 g/dL (6.4-8.2) Albumin 3.4 g/dL (3.4-5.0) Albumin/Globulin Ratio 1.1 (1.0-1.7) Lipase 98 U/L (73-393) Ethyl Alcohol Level < 10 mg/dL (0-10) Laboratory Tests Test 10/10/16 09:00 White Blood Count 7.8 x10^3/uL (4.0-11.0) Red Blood Count 4.32 x10^6/uL (3.50-5.40) Hemoglobin 13.4 g/dL (12.0-15.5) Hematocrit 38.7 % (36.0-47.0) Mean Corpuscular Volume 90 fL (79-100) Mean Corpuscular Hemoglobin 31 pg (25-35) Mean Corpuscular Hemoglobin Concent 35 g/dL (31-37) Red Cell Distribution Width 15.3 % (11.5-14.5) Platelet Count 182 x10^3/uL (140-400) Neutrophils (%) (Auto) 79 % (31-73) Lymphocytes (%) (Auto) 15 % (24-48) Monocytes (%) (Auto) 6 % (0-9) Eosinophils (%) (Auto) 0 % (0-3) Basophils (%) (Auto) 0 % (0-3) Neutrophils # (Auto) 6.2 x10^3uL (1.8-7.7) Lymphocytes # (Auto) 1.1 x10^3/uL (1.0-4.8) Monocytes # (Auto) 0.4 x10^3/uL (0.0-1.1) Eosinophils # (Auto) 0.0 x10^3/uL (0.0-0.7) Basophils # (Auto) 0.0 x10^3/uL (0.0-0.2) Sodium Level 139 mmol/L (136-145) Potassium Level 4.6 mmol/L (3.5-5.1) Chloride Level 103 mmol/L (98-107) Carbon Dioxide Level 32 mmol/L (21-32) Anion Gap 4 (6-14) Blood Urea Nitrogen 14 mg/dL (7-20) Creatinine 0.6 mg/dL (0.6-1.0) Estimated GFR (Cockcroft-Gault) 103.4 Glucose Level 115 mg/dL (70-99) Calcium Level 8.6 mg/dL (8.5-10.1) Medications Current Medications Hydromorphone HCl (Dilaudid) 1 mg 1X ONCE IV Last administered on 10/09/16 06 :05; Start 10/09/16 at 06:00; Stop 10/09/16 at 06:01; Status DC Ondansetron HCl (Zofran) 4 mg 1X ONCE IV Last administered on 10/09/16 06:05 ; Start 10/09/16 at 06:00; Stop 10/09/16 at 06:01; Status DC Pantoprazole Sodium (Protonix Vial) 80 mg 1X ONCE IVP Last administered on 07:17; Start 10/09/16 at 07:00; Stop 10/09/16 at 07:01; Status DC Hydromorphone HCl (Dilaudid) 1 mg 1X ONCE IV Last administered on 10/09/16 07 :41; Start 10/09/16 at 07:45; Stop 10/09/16 at 07:46; Status DC Ondansetron HCl (Zofran) 4 mg PRN Q8HRS PRN IV NAUSEA/VOMITING; Start 10/09/16 at 07:45; Stop 10/10/16 at 07:44; Status DC Fentanyl Citrate (Fentanyl 2ml Vial) 50 mcg PRN Q2HR PRN IV PAIN Last administered on 10/09/16 10:36; Start 10/09/16 at 07:45; Stop 10/10/16 at 07:44 ; Status DC Haloperidol Lactate (Haldol) 4 mg 1X ONCE IVP ; Start 10/09/16 at 08:45; Stop 10/09/16 at 08:46; Status DC Pantoprazole Sodium (Protonix Vial) 40 mg BIDAC IVP ; Start 10/09/16 at 10:30; Status Cancel Pantoprazole Sodium (Protonix Vial) 40 mg BIDAC IVP Last administered on 08:41; Start 10/09/16 at 16:30; Stop 10/10/16 at 12:26; Status DC Hydromorphone HCl (Dilaudid) 0.5 mg PRN Q4HRS PRN IV PAIN Last administered on 10/09/16 12:33; Start 10/09/16 at 12:15; Stop 10/09/16 at 12:54; Status DC Hydromorphone HCl (Dilaudid) 0.5 mg PRN Q3HRS PRN IV SEVERE PAIN Last administered on 10/09/16 16:01; Start 10/09/16 at 13:00; Stop 10/09/16 at 20:04 ; Status DC Lorazepam (Ativan) 0.5 mg PRN Q6HRS PRN IV ANXIETY / AGITATION Last administered on 10/09/16 13:18; Start 10/09/16 at 13:00 Alprazolam (Xanax) 1 mg PRN Q6HRS PRN PO ANXIETY / AGITATION Last administered on 10/10/16 00:26; Start 10/09/16 at 15:00 Carbamazepine (TEGretol) 200 mg DAILY PO Last administered on 10/10/16 08:42; Start 10/09/16 at 15:30 Cyclobenzaprine HCl (Flexeril) 10 mg PRN Q6HRS PRN PO MUSCLE SPASMS; Start 04/15 at 15:00 Levothyroxine Sodium (Synthroid) 125 mcg DAILY06 PO ; Start 10/10/16 at 06:00 Oxycodone/ Acetaminophen (Percocet 5/325) 2 tab PRN Q4HRS PRN PO MODERATE TO SEVERE PAIN; Start 10/09/16 at 15:00 Tramadol HCl (Ultram) 50 mg BID PO Last administered on 10/10/16 08:43; Start 10/09/16 at 16:00 Zolpidem Tartrate (Ambien) 5 mg QHS PO Last administered on 10/09/16 22:17; Start 10/09/16 at 21:00 Alprazolam (Xanax) 2 mg TID PO Last administered on 10/10/16 08:43; Start 04/15 at 16:00 Pregabalin (Lyrica) 150 mg BID PO Last administered on 10/10/16 08:42; Start 10/09/16 at 21:00 Venlafaxine HCl (Effexor) 100 mg TID PO Last administered on 10/10/16 08:42; Start 10/10/16 at 09:00 Acetaminophen (Tylenol) 650 mg PRN Q6HRS PRN PO FEVER; Start 10/09/16 at 15:00 Ondansetron HCl (Zofran) 4 mg PRN Q6HRS PRN IV NAUSEA/VOMITING Last administered on 10/10/16 05:50; Start 10/09/16 at 15:00 Morphine Sulfate 2 mg PRN Q2HR PRN IV MODRATE PAIN; Start 10/09/16 at 15:00 Tramadol HCl (Ultram) 50 mg PRN Q6HRS PRN PO MILD PAIN; Start 10/09/16 at 15:00 Hydralazine HCl (Apresoline) 10 mg PRN Q4HRS PRN IVP ELEVATED BP, SEE COMMENTS ; Start 10/09/16 at 15:00 Docusate Sodium (Colace) 100 mg PRN DAILY PRN PO CONSTIPATION; Start 10/09/16 at 15:00 Sodium Chloride 1,000 ml @ 75 mls/hr [id number] IV Last administered on 22:17; Start 10/09/16 at 15:00 Midazolam HCl (Versed) 5 mg STK-MED ONCE .ROUTE ; Start 10/09/16 at 16:55; Stop 10/09/16 at 16:56; Status DC Ringer's Solution 1,000 ml @ 125 mls/hr Q8H IV Last administered on 10/09/16 17:00; Start 10/09/16 at 16:57; Stop 10/10/16 at 04:56; Status DC Propofol 20 ml @ As Directed STK-MED ONCE IV ; Start 10/09/16 at 16:59; Stop 04/15 at 17:00; Status DC Lidocaine HCl (Lidocaine Pf 2% Vial) 5 ml STK-MED ONCE .ROUTE ; Start 10/09/16 at 16:59; Stop 10/09/16 at 17:00; Status DC Hydromorphone HCl (Dilaudid) 1 mg 1X ONCE IV Last administered on 10/09/16 18 :12; Start 10/09/16 at 18:15; Stop 10/09/16 at 18:16; Status DC Hydromorphone HCl (Dilaudid) 1 mg PRN Q3HRS PRN IV SEVERE PAIN Last administered on 10/10/16 05:50; Start 10/09/16 at 20:15 Pantoprazole Sodium (Protonix) 40 mg BIDAC PO ; Start 10/10/16 at 16:30 Active Scripts Active Oxycodone-Acetaminophen 5-325 (Oxycodone Hcl/Acetaminophen) 1 Each Tablet 2 Tab PO PRN Q4HRS PRN Cyclobenzaprine Hcl 10 Mg Tablet 10 Mg PO PRN Q6HRS PRN 5 Days Oxycontin (Oxycodone HCl) 15 Mg Tab.er.12h 20 Mg PO Q12HR [Oxycodone Hcl/Acetaminophen] 1 TAB Tablet 1 Tab PO PRN Q4HRS PRN Reported Tramadol Hcl 50 Mg Tablet 1 Tab PO BID Alprazolam 1 Mg Tablet 1 Mg PO PRN Q6HRS PRN Lyrica (Pregabalin) 150 Mg Capsule 150 Mg PO HS 30 Days Trazodone Hcl 300 Mg Tablet 425 Mg PO HS Ambien (Zolpidem Tartrate) 10 Mg Tablet 10 Mg PO HS Levothyroxine Sodium 125 Mcg Tablet 125 Mcg PO DAILYAC Lyrica (Pregabalin) 300 Mg Capsule 300 Mg PO DAILY Effexor Xr (Venlafaxine Hcl) 150 Mg Cap.er.24h 300 Mg PO DAILY Lyrica (Pregabalin) 150 Mg Capsule 1 Cap PO BID Ambien (Zolpidem Tartrate) 5 Mg Tablet 1 Tab PO QHS Trazodone Hcl 300 Mg Tablet 1 Tab PO QHS Levothyroxine Sodium 125 Mcg Tablet 1 Tab PO DAILY Tegretol (Carbamazepine) 200 Mg Tablet 200 Mg PO Xanax (Alprazolam) 2 Mg Tablet 1 Tab PO TID Vitals/I & O Vital Sign - Last 24 Hours 10/09/16 10/09/16 10/09/16 10/09/16 15:00 16:01 17:15 17:30 Temp 97.5 98.0 97.5 98.0 Pulse 73 73 77 Resp 18 18 12 20 B/P (MAP) 119/63 (81) 96/59 96/55 Pulse Ox 93 93 96 97 O2 Delivery Room Air Room Air Nasal Cannula Room Air O2 Flow Rate 2 10/09/16 10/09/16 10/09/16 10/09/16 17:45 18:00 18:12 18:15 Pulse 80 80 78 Resp 14 22 22 18 B/P (MAP) 105/74 111/90 98/60 Pulse Ox 96 97 98 97 O2 Delivery Nasal Cannula Nasal Cannula Nasal Cannula Nasal Cannula O2 Flow Rate 2 2 2.0 2 10/09/16 10/09/16 10/09/16 10/09/16 18:30 18:45 19:01 19:32 Temp 98.0 98.0 Pulse 72 72 72 72 Resp 20 20 14 B/P (MAP) 103/33 102/46 99/72 99/72 (81) Pulse Ox 96 96 94 94 O2 Delivery Nasal Cannula Nasal Cannula Nasal Cannula Nasal Cannula O2 Flow Rate 2 2 2 2.0 10/09/16 10/09/16 10/09/16 10/10/16 20:00 20:44 23:00 00:23 Temp 97.7 97.7 Pulse 82 Resp 18 20 18 B/P (MAP) 134/73 (93) Pulse Ox 88 O2 Delivery Room Air Room Air Room Air 10/10/16 10/10/16 10/10/16 10/10/16 05:45 05:50 07:00 07:50 Temp 97.8 97.8 Pulse 109 109 Resp 18 18 20 B/P (MAP) 152/102 (119) 125/73 (90) Pulse Ox 91 93 O2 Delivery Room Air Room Air Room Air O2 Flow Rate 2.0 10/10/16 10/10/16 10/10/16 08:43 10:59 11:00 Temp 98.6 98.6 Pulse 96 Resp 18 18 18 B/P (MAP) 115/79 (91) Pulse Ox 88 O2 Delivery Nasal Cannula Nasal Cannula Room Air O2 Flow Rate 2.0 2.0 Intake and Output 10/09/16 10/09/16 10/10/16 15:00 23:00 07:00 Intake Total 970 ml 825 ml Balance 970 ml 825 ml NEYDA WALTON MD Oct 10, 2016 12:55
[2016-10-10 15:00] VITALS: BP 136/77
[2016-10-10] MEDS: METOCLOPRAMIDE HCL 10 MG/2 ML VIAL. IV PRN (17:00)
[2016-10-10] MEDS: PANTOPRAZOLE 40 MG TABLET.DR. PO SCH (17:01)
[2016-10-10 19:05] VITALS: BP 106/66
[2016-10-10] MEDS: ZOLPIDEM 5 MG TABLET. PO SCH ×2 (21:00→23:04)
[2016-10-10 23:07] VITALS: BP 119/74
[2016-10-11] MEDS: LEVOTHYROXINE 125 MCG TABLET PO SCH (05:17)
[2016-10-11] MEDS: HYDROmorphone 2 MG/ML VIAL IV PRN ×3 (05:20→12:02)
[2016-10-11] MEDS: IV NORMAL SALINE 1000ML BAG 1,000 ML IV SCH (06:40)
[2016-10-11 07:00] VITALS: BP 161/77
[2016-10-11] MEDS: PANTOPRAZOLE 40 MG TABLET.DR. PO SCH ×2 (09:04→17:01)
[2016-10-11] MEDS: PREGABALIN 75 MG CAPSULE PO SCH (09:04)
[2016-10-11] MEDS: carBAMazepine 200 MG TABLET PO SCH (09:04)
[2016-10-11] MEDS: ALPRAZolam 1 MG TABLET PO PRN (09:04)
[2016-10-11] MEDS: traMADol 50 MG TABLET PO SCH (09:05)
[2016-10-11] MEDS: METOCLOPRAMIDE HCL 10 MG/2 ML VIAL. IV PRN ×2 (09:06→17:02)
[2016-10-11 09:12] LABS: BASO % 0 % (0-3); EOS % 0 % (0-3); HEMATOCRIT 36.8 % (36.0-47.0); LYMPH # 1.2 x10^3/uL (1.0-4.8); LYMPH % 15 % (24-48); MEAN CORPUSCULAR HEMOGLOBIN 30 pg (25-35); MEAN CORPUSCULAR HGB CONC 33 g/dL (31-37); MEAN CORPUSCULAR VOLUME 92 fL (79-100); MONO % 6 % (0-9); NEUT % 78 % (31-73); PLATELET COUNT 162 x10^3/uL (140-400); RED BLOOD COUNT 3.99 x10^6/uL (3.50-5.40); RED CELL DISTRIBUTION WIDTH 14.9 % (11.5-14.5); WHITE BLOOD COUNT 7.9 x10^3/uL (4.0-11.0)
[2016-10-11] MEDS: VENLAFAXINE 50 MG TABLET. PO SCH ×2 (09:20→14:29)
[2016-10-11] MEDS: ACETAMINOPHEN 325 MG TABLET. PO PRN ×2 (09:20→17:01)
[2016-10-11] MEDS ORDERED: Oxycodone Hcl/Acetaminophen PO (09:24)
[2016-10-11] MEDS ORDERED: PANT40TA5 PO (09:24)
[2016-10-11 09:52] LABS: CALCIUM 8.4 mg/dL (8.5-10.1); CREATININE 0.6 mg/dL (0.6-1.0); POTASSIUM 4.2 mmol/L (3.5-5.1)
--- NOTE | 2016-10-11 10:50 | PDOC ---
Subjective: Subjective: I saw her earlier this morning. Headache, not hungry. No bleeding or abd pain. Objective: Objective: RN called earlier. Possible DC today if okay w/ us. Vital Signs: Vital Signs Date Time Temp Pulse Resp B/P (MAP) Pulse Ox O2 Delivery O2 Flow Rate FiO2 10/11/16 09:07 94 Room Air 2.0 10/11/16 07:00 98.7 98 18 161/77 (105) 98.7 Labs: Laboratory Tests Test 10/11/16 08:50 White Blood Count 7.9 x10^3/uL Red Blood Count 3.99 x10^6/uL Hemoglobin 12.0 g/dL Hematocrit 36.8 % Mean Corpuscular Volume 92 fL Mean Corpuscular Hemoglobin 30 pg Mean Corpuscular Hemoglobin Concent 33 g/dL Red Cell Distribution Width 14.9 % Platelet Count 162 x10^3/uL Neutrophils (%) (Auto) 78 % Lymphocytes (%) (Auto) 15 % Monocytes (%) (Auto) 6 % Eosinophils (%) (Auto) 0 % Basophils (%) (Auto) 0 % Neutrophils # (Auto) 6.2 x10^3uL Lymphocytes # (Auto) 1.2 x10^3/uL Monocytes # (Auto) 0.5 x10^3/uL Eosinophils # (Auto) 0.0 x10^3/uL Basophils # (Auto) 0.0 x10^3/uL Sodium Level 138 mmol/L Potassium Level 4.2 mmol/L Chloride Level 102 mmol/L Carbon Dioxide Level 33 mmol/L Anion Gap 3 Blood Urea Nitrogen 12 mg/dL Creatinine 0.6 mg/dL Estimated GFR (Cockcroft-Gault) 103.0 Glucose Level 118 mg/dL Calcium Level 8.4 mg/dL PE: GEN: hold head LUNGS: CTAB HEART: RRR ABD: S/ND/NT NEURO/PSYCH: drowsy A/P: Coffee-ground emesis - prior to admission, no recurrence -Hgb still WNL -on PPI BID -erosive gastritis on EGD Abd pain - better Decreased appetite Headache -per primary -- Encouraged diet. Continue PPI. DC per primary. UPDATE: Paged by TAE Mike at [phone], who already spoke w/ Dr. Smart. Pt reporting "vomited blood all over herself and the nurse saw" when told she had discharge orders. No vomiting or bleeding witnessed by staff. RN rechecked CBC - Hgb increased from 12 to 12.8. Still okay to DC per GI. ORLANDO ANAND Oct 11, 2016 10:50
[2016-10-11 11:00] VITALS: BP 122/79
--- NOTE | 2016-10-11 11:45 | PDOC3 ---
Discharge Summary [facility] Date of Admission: Oct 09, 2016 Discharge Date: Oct 11, 2016 Admitting Diagnosis 1. coffee ground emesis with erosive gastritis on EGD 2. chronic lower back pain, 2/2 OA, or muscle spasm 3 bipolar disorder, 1 4. h/o lupus, no meds 5. likely pain meds seeker 6. obesity 7. hypothyroidism Problems: Final Diagnosis CONSULTS gi Procedures EGD showed erosive gastritis, no active bleeding Brief Hospital Course Patient is a 55 year old female presenting to the emergency department for evaluation of diffuse abdominal pain worse in her epigastrium and associated with coffee-ground emesis 2 episodes this morning. pt was Just DCed from here 2 weeks ago for chest pain with neg MPI, chronic back pain. pain meds seeker. Pt said she was taking prednisone 80mg daily in the past 2 weeks for pain control in [place]. then started to have abd pain yesterday, with coffee ground emesis x2 this am. The pain is mainly upper ABD, tenderness, no radiating , 10/10. Pt very anxious, requires dilaudid and ativan iv now. Hb stable, CT abd neg. She said she had h/o gastric ulcer 2 years ago. EGD showed erosive gastritis. Hb always normal pt still c/o abd pain, eats ok dc home. percocet 5/325 10 pills, protonix 40mg bid. dc time 40min General: Alert, Oriented X3, Cooperative Heart: Regular rate, Normal S1, Normal S2 Lungs: Clear Abdomen: Normal bowel sounds, Soft, Other (epigastric area mild tenderness) Extremities: No clubbing, No cyanosis Skin: No rashes Problems: Disposition home CONDITION AT DISCHARGE: Improved Diet gi soft Scheduled Alprazolam (Xanax), 1 TAB PO TID, (Reported) Levothyroxine Sodium (Levothyroxine Sodium), 1 TAB PO DAILY, (Reported) Pantoprazole Sodium (Pantoprazole Sodium), 40 MG PO BIDAC Pregabalin (Lyrica), 1 CAP PO BID, (Reported) Tramadol Hcl (Tramadol Hcl), 1 TAB PO BID, (Reported) Trazodone Hcl (Trazodone Hcl), 1 TAB PO QHS, (Reported) Venlafaxine Hcl (Effexor Xr), 300 MG PO DAILY, (Reported) Zolpidem Tartrate (Ambien), 1 TAB PO QHS, (Reported) Scheduled PRN Alprazolam (Alprazolam), 1 MG PO PRN Q6HRS PRN for ANXIETY / AGITATION, ( Reported) Cyclobenzaprine Hcl (Cyclobenzaprine Hcl), 10 MG PO PRN Q6HRS PRN for MUSCLE SPASMS Oxycodone Hcl/Acetaminophen (Oxycodone-Acetaminophen 5-325), 2 TAB PO PRN Q4HRS PRN for MODERATE TO SEVERE PAIN [Oxycodone Hcl/Acetaminophen], 1 TAB PO PRN Q4HRS PRN for MODERATE PAIN Miscellaneous Medications Carbamazepine (Tegretol), 200 MG PO, (Reported) Discontinued Medications Levothyroxine Sodium (Levothyroxine Sodium), 125 MCG PO DAILYAC, (Reported) Oxycodone Hcl (Oxycontin), 20 MG PO Q12HR Pregabalin (Lyrica), 300 MG PO DAILY, (Reported) Pregabalin (Lyrica), 150 MG PO HS, (Reported) Trazodone Hcl (Trazodone Hcl), 425 MG PO HS, (Reported) Zolpidem Tartrate (Ambien), 10 MG PO HS, (Reported) Follow Up pcp in 2 weeks NEYDA WALTON MD Oct 11, 2016 11:45
[2016-10-11 14:05] LABS: BASO % 0 % (0-3); EOS % 0 % (0-3); HEMATOCRIT 39.2 % (36.0-47.0); HEMOGLOBIN 12.8 g/dL (12.0-15.5); LYMPH # 2.7 x10^3/uL (1.0-4.8); LYMPH % 29 % (24-48); MEAN CORPUSCULAR HEMOGLOBIN 30 pg (25-35); MEAN CORPUSCULAR HGB CONC 33 g/dL (31-37); MEAN CORPUSCULAR VOLUME 93 fL (79-100); MONO % 9 % (0-9); NEUT % 62 % (31-73); PLATELET COUNT 208 x10^3/uL (140-400); RED BLOOD COUNT 4.22 x10^6/uL (3.50-5.40); RED CELL DISTRIBUTION WIDTH 15.3 % (11.5-14.5); WHITE BLOOD COUNT 9.5 x10^3/uL (4.0-11.0)
[2016-10-11 15:00] VITALS: BP 126/70
[2016-10-11] MEDS ORDERED: ONDANSETRON ODT 4 MG TAB.RAPDIS. PO ONE (17:45)
== END 2016-10-11 15:00 | disposition home or self-care (01) | DRG 379 ==
LOC: ER 04:33 → 5 SOUTH 07:46 → 4 NORTH 19:15
PROVIDERS: ADMIT Internal Medicine; ATTEND Internal Medicine
PROC: 0DJ08ZZ Inspection of Upper Intestinal Tract, Via Natural or Artificial Opening Endoscopic (ICD-10-PCS; principal; 2016-10-09 17:00)
DX: K25.4 Chronic or unspecified gastric ulcer with hemorrhage (principal); F31.9 Bipolar disorder, unspecified; E03.9 Hypothyroidism, unspecified; F41.9 Anxiety disorder, unspecified; G62.9 Polyneuropathy, unspecified; M54.5 Low back pain; M19.90 Unspecified osteoarthritis, unspecified site; G89.29 Other chronic pain; K44.9 Diaphragmatic hernia without obstruction or gangrene; E66.9 Obesity, unspecified; M32.9 Systemic lupus erythematosus, unspecified; Z82.49 Family history of ischemic heart disease and other diseases of the circulatory system; Z80.9 Family history of malignant neoplasm, unspecified; Z90.49 Acquired absence of other specified parts of digestive tract; Z90.710 Acquired absence of both cervix and uterus; Z87.11 Personal history of peptic ulcer disease; Z68.33 Body mass index [BMI] 33.0-33.9, adult; Z88.6 Allergy status to analgesic agent; Z88.8 Allergy status to other drugs, medicaments and biological substances; Z79.899 Other long term (current) drug therapy; Z79.52 Long term (current) use of systemic steroids
CPT/HCPCS: 36415; 74176; 80048; 80053; 82550; 83690; 83735; 85027; 85610; 85730; 86850; 86900; 86901; 96374; 96375; 96376; C9113; G0480; J1170; J2060; J2405; J2704; J2765; J3010; J7030; J7120; 99285-25

== ENCOUNTER 2016-10-17 22:20 | Emergency (ER) | payer MEDICARE, OTHER ==
[~2016-10-17] VITALS: Ht 175.3 cm; Wt 99.8 kg
[~2016-10-17 22:20] MED LIST changes: +PANT40TA5 PO
--- NOTE | 2016-10-17 22:46 | PHYS DOC ---
Past Medical History Past Medical History: Depression, P.U.D., Other Additional Past Medical Histor: Lupus Past Surgical History: Appendectomy, Cholecystectomy, , Hysterectomy, Other Additional Past Surgical Histo: breast implants and removal, rt ankle Alcohol Use: Rarely Drug Use: None Adult General Chief Complaint Chief Complaint: GI PROBLEM HPI HPI Patient is a 56 year old FEMALE who presents with ABDOMINAL PAIN, VOMITING AND DARK STOOLS. Pt states recent admission and diagnosis of Ulcer in stomach by EGD, was discharged on Protonix and zofran. Pt states has never felt well since discharge. Past 2 days vomiting that turned "darker" today. Upper abdominal pain, fullness "like a boil" currently 8/10. Loose stools that looked dark today. Pt states she is taking her Protonix and Zofran. Review of Systems Review of Systems Constitutional: Denies fever or chills [] Eyes: Denies change in visual acuity, redness, or eye pain [] HENT: Denies nasal congestion or sore throat [] Respiratory: Denies cough or shortness of breath [] Cardiovascular: No additional information not addressed in HPI [] GI: yes, abdominal pain, vomiting and diarrhea] : Denies dysuria or hematuria [] Musculoskeletal: Denies back pain or joint pain [] Integument: Denies rash or skin lesions [] Neurologic: Denies headache, focal weakness or sensory changes [] Current Medications Current Medications Current Medications Medications (Trade) Dose Ordered Sig/[facility] Start Time Stop Time Status Last Admin Dose Admin Hydromorphone HCl (Dilaudid) 0.5 mg 1X ONCE 10/18/16 01:00 10/18/16 01:01 10/18/16 00:46 0.5 MG Iohexol (Omnipaque 300 Mg/ml) 75 ml 1X ONCE 10/18/16 00:30 10/18/16 00:31 DC 10/18/16 00:27 75 ML Morphine Sulfate 4 mg 1X ONCE 10/17/16 23:00 10/17/16 23:01 DC 10/17/16 23:12 4 MG Ondansetron HCl (Zofran) 4 mg 1X ONCE 10/17/16 23:00 10/17/16 23:01 DC 10/17/16 23:13 4 MG Sodium Chloride 1,000 ml @ 1,000 mls/hr 1X ONCE 10/17/16 23:00 10/17/16 23:59 DC 10/17/16 23:13 1,000 MLS/HR Allergies Allergies Allergies Coded Allergies Type Severity Reaction Last Updated Verified gabapentin Allergy Intermediate 10/09/16 Yes NSAIDS (Non-Steroidal Anti-Inflamma Allergy Mild Nausea and Vomiting 10/09/16 Yes Physical Exam Physical Exam Constitutional: Well developed, well nourished, no acute distress, non-toxic appearance. [] HENT: Normocephalic, atraumatic, bilateral external ears normal, oropharynx moist, no oral exudates, nose normal. [] Eyes: PERRL, EOMI, conjunctiva normal, no discharge. [] Neck: Normal range of motion, no tenderness, supple, no stridor. [] Cardiovascular:Heart rate regular rhythm, no murmur [] Lungs & Thorax: Bilateral breath sounds clear to auscultation [] Abdomen: Bowel sounds normal, soft, epigastric tenderness to palpation, no guarding, no rebound Rectal--stool was brown and guaic negative per lab Skin: Warm, dry, no erythema, no rash. [] Back: No tenderness, no CVA tenderness. [] Extremities: No tenderness, no cyanosis, no clubbing, ROM intact, no edema. [] Neurologic: Alert and oriented X 3, normal motor function, normal sensory function, no focal deficits noted. [] Psychologic: Affect normal, judgement normal, mood normal. [] Current Patient Data Vital Signs Vital Signs Date Time Temp Pulse Resp B/P (MAP) Pulse Ox O2 Delivery O2 Flow Rate FiO2 10/17/16 22:30 98.7 57 18 124/91 (102) 97 Room Air 98.7 Lab Values Laboratory Tests Test 10/17/16 23:00 10/17/16 23:45 White Blood Count 6.5 x10^3/uL (4.0-11.0) Red Blood Count 4.08 x10^6/uL (3.50-5.40) Hemoglobin 12.4 g/dL (12.0-15.5) Hematocrit 37.3 % (36.0-47.0) Mean Corpuscular Volume 91 fL (79-100) Mean Corpuscular Hemoglobin 30 pg (25-35) Mean Corpuscular Hemoglobin Concent 33 g/dL (31-37) Red Cell Distribution Width 15.4 % (11.5-14.5) H Platelet Count 189 x10^3/uL (140-400) Neutrophils (%) (Auto) 51 % (31-73) Lymphocytes (%) (Auto) 36 % (24-48) Monocytes (%) (Auto) 10 % (0-9) H Eosinophils (%) (Auto) 2 % (0-3) Basophils (%) (Auto) 1 % (0-3) Neutrophils # (Auto) 3.3 x10^3uL (1.8-7.7) Lymphocytes # (Auto) 2.4 x10^3/uL (1.0-4.8) Monocytes # (Auto) 0.7 x10^3/uL (0.0-1.1) Eosinophils # (Auto) 0.1 x10^3/uL (0.0-0.7) Basophils # (Auto) 0.0 x10^3/uL (0.0-0.2) Prothrombin Time 12.4 SEC (11.7-14.0) Prothrombin Time INR 1.0 (0.8-1.1) Sodium Level 140 mmol/L (136-145) Potassium Level 3.6 mmol/L (3.5-5.1) Chloride Level 105 mmol/L (98-107) Carbon Dioxide Level 32 mmol/L (21-32) Anion Gap 3 (6-14) L Blood Urea Nitrogen 10 mg/dL (7-20) Creatinine 0.8 mg/dL (0.6-1.0) Estimated GFR (Cockcroft-Gault) 73.9 BUN/Creatinine Ratio 13 (6-20) Glucose Level 102 mg/dL (70-99) H Calcium Level 9.0 mg/dL (8.5-10.1) Total Bilirubin 0.2 mg/dL (0.2-1.0) Aspartate Amino Transferase (AST) 16 U/L (15-37) Alanine Aminotransferase (ALT) 23 U/L (14-59) Alkaline Phosphatase 84 U/L (46-116) Total Protein 6.8 g/dL (6.4-8.2) Albumin 3.5 g/dL (3.4-5.0) Albumin/Globulin Ratio 1.1 (1.0-1.7) Lipase 80 U/L (73-393) Stool Occult Blood Negative (NEG) Laboratory Tests 10/17/16 23:00 Laboratory Tests 10/17/16 23:00 EKG EKG [] Radiology/Procedures Radiology/Procedures []ct ABD/PELVIS ----PENDING 55 Impressions: ABDOMINAL PAIN Course & Med Decision Making Course & Med Decision Making Pertinent Labs and Imaging studies reviewed. (See chart for details) [] Dragon Disclaimer Dragon Disclaimer This electronic medical record was generated, in whole or in part, using a voice recognition dictation system. Departure Departure Referrals: NO PCP (PCP) NILDA ROBERTS MD Oct 17, 2016 22:45
[2016-10-17] MEDS ORDERED: IV NORMAL SALINE 1000ML BAG 1,000 ML IV ONE (23:00)
[2016-10-17] MEDS ORDERED: ONDANSETRON PF 4 MG/2 ML VIAL. IV ONE (23:00)
[2016-10-17] MEDS ORDERED: MORPHINE SULFATE 4 MG/ML DISP.SYRIN. IV ONE (23:00)
[2016-10-17 23:08] LABS: BASO % 1 % (0-3); EOS % 2 % (0-3); HEMATOCRIT 37.3 % (36.0-47.0); HEMOGLOBIN 12.4 g/dL (12.0-15.5); LYMPH # 2.4 x10^3/uL (1.0-4.8); LYMPH % 36 % (24-48); MEAN CORPUSCULAR HEMOGLOBIN 30 pg (25-35); MEAN CORPUSCULAR HGB CONC 33 g/dL (31-37); MEAN CORPUSCULAR VOLUME 91 fL (79-100); MONO % 10 % (0-9); NEUT % 51 % (31-73); PLATELET COUNT 189 x10^3/uL (140-400); RED BLOOD COUNT 4.08 x10^6/uL (3.50-5.40); RED CELL DISTRIBUTION WIDTH 15.4 % (11.5-14.5); WHITE BLOOD COUNT 6.5 x10^3/uL (4.0-11.0)
[2016-10-17 23:16] LABS: PROTHROMBIN TIME PATIENT 12.4 SEC (11.7-14.0)
[2016-10-17 23:17] LABS: CREATININE 0.8 mg/dL (0.6-1.0); GFR 73.9; POTASSIUM 3.6 mmol/L (3.5-5.1)
[2016-10-17 23:23] LABS: ALBUMIN 3.5 g/dL (3.4-5.0); ALBUMIN/GLOBULIN RATIO 1.1 (1.0-1.7); TOTAL BILIRUBIN 0.2 mg/dL (0.2-1.0); TOTAL PROTEIN 6.8 g/dL (6.4-8.2)
[2016-10-17] MEDS ORDERED: HYDROmorphone 2 MG/ML VIAL ONE (23:52)
[2016-10-17 23:56] LABS: NEG OBC FOB NEG; POS OBC FOB POS
[2016-10-18] MEDS ORDERED: IOHEXOL 300 MG/ML 75 ML VIAL IV ONE (00:30)
[2016-10-18 00:38] VITALS: BP 132/61
[2016-10-18] MEDS ORDERED: HYDROmorphone 2 MG/ML VIAL IV ONE ×2 (01:00)
--- NOTE | 2016-10-18 01:29 | RAD ---
INDICATION: GI BLEED LAST WEEK, STILL VOMITING, ABD PAIN, [id number], PRIOR SENT COMPARISON: October 09, 2016 TECHNIQUE: Axial CT images were obtained through the abdomen and pelvis with intravenous contrast. One or more of the following individualized dose reduction techniques were utilized for this examination: 1. Automated exposure control; 2. Adjustment of the mA and/or kV according to patient size; 3. Use of iterative reconstruction technique. FINDINGS: Abdomen: Chest Base: Partially imaged without gross abnormality. Vessels: No abdominal aortic aneurysm. Liver/Biliary: Postcholecystectomy. Pancreas: No peripancreatic edema. Spleen: Normal. Kidneys/Adrenal: 25 mm cystic lesion left kidney. No hydronephrosis. GI: Appendix not well seen. No dilated loops of bowel to suggest obstruction. Contrast is seen within the left common femoral vein layering into the left iliac veins. Pelvis: Bladder: No definite adjacent inflammation. Degenerative changes spine degenerative changes right hip. IMPRESSION: 1. No evidence of bowel obstruction or hydronephrosis. 2. Cystic lesion left kidney. 3. Questionable region of nipple retraction on the right. This could be positional in nature but if there is physical exam finding of nipple retraction would consider obtaining a follow-up mammogram and/or ultrasound if one has not been obtained recently. Electronically signed by: Xavier Coats MD (10/18/2016 1:26 AM)
== END 2016-10-18 01:50 | disposition home or self-care (01) ==
LOC: ER 22:20
DX: R10.10 Upper abdominal pain, unspecified (principal); R11.10 Vomiting, unspecified; R19.7 Diarrhea, unspecified; R10.816 Epigastric abdominal tenderness; F32.9 Major depressive disorder, single episode, unspecified; Z87.11 Personal history of peptic ulcer disease; Z90.49 Acquired absence of other specified parts of digestive tract; Z90.710 Acquired absence of both cervix and uterus; Z98.82 Breast implant status; Z88.8 Allergy status to other drugs, medicaments and biological substances
CPT/HCPCS: 36415; 74177; 80053; 82274; 83690; 85027; 85610; 96361; 96374; 96375; 96376; 99285; J1170; J2270; J2405; J7030; Q9967

== ENCOUNTER 2016-10-21 00:35 | Emergency (ER) | payer MEDICARE, OTHER ==
[~2016-10-21] VITALS: Ht 175.3 cm; Wt 102.1 kg
[2016-10-21] MEDS ORDERED: ONDANSETRON PF 4 MG/2 ML VIAL. ONE (02:12)
[2016-10-21] MEDS ORDERED: ONDANSETRON PF 4 MG/2 ML VIAL. IV ONE ×2 (02:15→02:30)
[2016-10-21 02:30] LABS: BASO % 1 % (0-3); EOS % 2 % (0-3); HEMATOCRIT 38.3 % (36.0-47.0); HEMOGLOBIN 12.7 g/dL (12.0-15.5); LYMPH # 2.7 x10^3/uL (1.0-4.8); LYMPH % 42 % (24-48); MEAN CORPUSCULAR HEMOGLOBIN 30 pg (25-35); MEAN CORPUSCULAR HGB CONC 33 g/dL (31-37); MEAN CORPUSCULAR VOLUME 91 fL (79-100); MONO % 9 % (0-9); NEUT % 46 % (31-73); PLATELET COUNT 204 x10^3/uL (140-400); RED CELL DISTRIBUTION WIDTH 15.3 % (11.5-14.5); WHITE BLOOD COUNT 6.4 x10^3/uL (4.0-11.0)
[2016-10-21] MEDS ORDERED: IV NORMAL SALINE 1000ML BAG 1,000 ML IV SCH (02:30)
[2016-10-21] MEDS ORDERED: fentaNYL PF VIAL 100 MCG/2 ML VIAL IV PRN (02:30)
[2016-10-21] MEDS ORDERED: FAMOTIDINE 20 MG/2 ML VIAL IVP ONE (02:30)
[2016-10-21 02:38] LABS: CALCIUM 9.5 mg/dL (8.5-10.1); CREATININE 0.8 mg/dL (0.6-1.0); GFR 73.9
[2016-10-21] MEDS ORDERED: HYDROmorphone 2 MG/ML VIAL ONE (02:40)
[2016-10-21 02:43] LABS: DIRECT BILIRUBIN 0.1 mg/dL (0.0-0.2); TOTAL BILIRUBIN 0.3 mg/dL (0.2-1.0); TOTAL PROTEIN 7.1 g/dL (6.4-8.2)
[2016-10-21] MEDS ORDERED: HYDROmorphone 2 MG/ML VIAL IVP ONE ×2 (02:45→04:00)
[2016-10-21 02:47] LABS: NEG OBC FOB NEG; POS OBC FOB POS
--- NOTE | 2016-10-21 03:03 | PHYS DOC ---
Past Medical History Past Medical History: Anxiety, Asthma, Depression, Pneumonia, P.U.D., Other Additional Past Medical Histor: Lupus; Erosive Gastritis Past Surgical History: Appendectomy, Cholecystectomy, , Hysterectomy, Other Additional Past Surgical Histo: breast implants and removal, rt ankle Alcohol Use: Rarely Drug Use: None Adult General Chief Complaint Chief Complaint: HEMATEMESIS/VOMITING BLOOD HPI HPI Patient is a 56 year old male with a history of erosive gastritis who presents with epigastric abdominal pain associated with nausea and vomiting that has restarted since recent admission for erosive gastritis. States she has had multiple episodes of nonbloody nonbilious emesis throughout the day. This evening, she has had 2 episodes of coffee-ground emesis. She denies fever or chills, chest pain, dyspnea, cough, diarrhea, bloody or dark stools, dysuria, back pain. States she was in the hospital recently and had EGD here. She states compliance with medications. Review of Systems Review of Systems Constitutional: Denies fever or chills [] Eyes: Denies change in visual acuity, redness, or eye pain [] HENT: Denies nasal congestion or sore throat [] Respiratory: Denies cough or shortness of breath [] Cardiovascular: No additional information not addressed in HPI [] GI: Denies bloody stools [] : Denies dysuria or hematuria [] Musculoskeletal: Denies back pain or joint pain [] Integument: Denies rash or skin lesions [] Neurologic: Denies headache, focal weakness or sensory changes [] Endocrine: Denies polyuria or polydipsia [] Current Medications Current Medications Current Medications Medications (Trade) Dose Ordered Sig/Queta Start Time Stop Time Status Last Admin Dose Admin Famotidine (Pepcid) 20 mg 1X ONCE 10/21/16 02:30 10/21/16 02:31 DC 10/21/16 02:34 20 MG Fentanyl Citrate (Fentanyl 2ml Vial) 50 mcg PRN Q15MIN PRN 10/21/16 02:30 10/21/16 02:33 DC Hydromorphone HCl (Dilaudid) 2 mg STK-MED ONCE 10/21/16 02:40 10/21/16 02:41 DC Multi-Ingredient Mouthwash/Gargle (Gi Cocktail Single Dose) 15 ml 1X ONCE 10/21/16 03:45 10/21/16 03:46 Ondansetron HCl (Zofran) 4 mg 1X ONCE 10/21/16 02:30 10/21/16 02:31 DC Sodium Chloride 1,000 ml @ 1,000 mls/hr Q1H 10/21/16 02:30 10/21/16 03:29 DC 10/21/16 02:34 1,000 MLS/HR Allergies Allergies Allergies Coded Allergies Type Severity Reaction Last Updated Verified gabapentin Allergy Intermediate 10/09/16 Yes NSAIDS (Non-Steroidal Anti-Inflamma Allergy Mild Nausea and Vomiting 10/09/16 Yes Physical Exam Physical Exam Constitutional: Well developed, well nourished, no acute distress, non-toxic appearance. [] HENT: Normocephalic, atraumatic, bilateral external ears normal, oropharynx moist, nose normal. [] Eyes: PERRLA, EOMI. [] Neck: Normal range of motion, supple. [] Cardiovascular:Heart rate regular rhythm [] Lungs & Thorax: Bilateral breath sounds clear to auscultation [] Abdomen: Bowel sounds normal, soft, moderate epigastric tenderness, no guarding or rebound. [] Skin: Warm, dry, no erythema, no rash. [] Back: No tenderness, no CVA tenderness. [] Extremities: No tenderness, ROM intact, no edema. [] Neurologic: Alert and oriented X 3, normal motor function, normal sensory function, no focal deficits noted. [] Psychologic: Affect normal, judgement normal, mood normal. [] Current Patient Data Vital Signs Vital Signs Date Time Temp Pulse Resp B/P (MAP) Pulse Ox O2 Delivery O2 Flow Rate FiO2 10/21/16 02:44 16 Room Air 10/21/16 01:38 97.8 78 148/85 (106) 96 97.8 Lab Values Laboratory Tests Test 10/21/16 02:08 10/21/16 02:36 White Blood Count 6.4 x10^3/uL (4.0-11.0) Red Blood Count 4.20 x10^6/uL (3.50-5.40) Hemoglobin 12.7 g/dL (12.0-15.5) Hematocrit 38.3 % (36.0-47.0) Mean Corpuscular Volume 91 fL (79-100) Mean Corpuscular Hemoglobin 30 pg (25-35) Mean Corpuscular Hemoglobin Concent 33 g/dL (31-37) Red Cell Distribution Width 15.3 % (11.5-14.5) H Platelet Count 204 x10^3/uL (140-400) Neutrophils (%) (Auto) 46 % (31-73) Lymphocytes (%) (Auto) 42 % (24-48) Monocytes (%) (Auto) 9 % (0-9) Eosinophils (%) (Auto) 2 % (0-3) Basophils (%) (Auto) 1 % (0-3) Neutrophils # (Auto) 2.9 x10^3uL (1.8-7.7) Lymphocytes # (Auto) 2.7 x10^3/uL (1.0-4.8) Monocytes # (Auto) 0.6 x10^3/uL (0.0-1.1) Eosinophils # (Auto) 0.1 x10^3/uL (0.0-0.7) Basophils # (Auto) 0.0 x10^3/uL (0.0-0.2) Sodium Level 142 mmol/L (136-145) Potassium Level 4.0 mmol/L (3.5-5.1) Chloride Level 103 mmol/L (98-107) Carbon Dioxide Level 33 mmol/L (21-32) H Anion Gap 6 (6-14) Blood Urea Nitrogen 12 mg/dL (7-20) Creatinine 0.8 mg/dL (0.6-1.0) Estimated GFR (Cockcroft-Gault) 73.9 Glucose Level 86 mg/dL (70-99) Calcium Level 9.5 mg/dL (8.5-10.1) Total Bilirubin 0.3 mg/dL (0.2-1.0) Direct Bilirubin 0.1 mg/dL (0.0-0.2) Aspartate Amino Transferase (AST) 17 U/L (15-37) Alanine Aminotransferase (ALT) 23 U/L (14-59) Alkaline Phosphatase 94 U/L (46-116) Total Protein 7.1 g/dL (6.4-8.2) Albumin 4.0 g/dL (3.4-5.0) Lipase 106 U/L (73-393) Stool Occult Blood Negative (NEG) Laboratory Tests 10/21/16 02:08 Laboratory Tests 10/21/16 02:08 Course & Med Decision Making Course & Med Decision Making Pertinent Labs and Imaging studies reviewed. (See chart for details) Laboratory evaluation is unremarkable. She has no episodes of emesis here. Pain is improved with medications. Discussed case with Dr. Ferrell, gastroenterology, who recommends sucralfate and close follow-up with GI clinic. Return precautions given. She understands plan. Dragon Disclaimer Dragon Disclaimer This electronic medical record was generated, in whole or in part, using a voice recognition dictation system. Departure Departure Impression: Primary Impression: Nausea & vomiting Additional Impression: Epigastric abdominal pain Disposition: HOME, SELF-CARE Condition: STABLE Referrals: NO PCP (PCP) Patient Instructions: Gastritis, Adult, [id number] Additional Instructions: Continue your current medications. Take sucralfate to help with gastritis pain. Follow-up with Dr. Smart, GI clinic. Please call for appointment. Return for any concerns. Scripts Sucralfate (SUCRALFATE) 1 Gm Tablet 1 TAB PO TID, #90 TAB 0 Refills Prov: Lázaro POWELL MD 10/21/16 Problem Qualifiers Primary Impression: Nausea & vomiting Vomiting type: unspecified Vomiting Intractability: non-intractable Qualified Codes: R11.2 - Nausea with vomiting, unspecified Lázaro POWELL MD Oct 21, 2016 03:03
[2016-10-21] MEDS ORDERED: SUCR1TAB PO (03:39)
[2016-10-21 03:43] VITALS: BP 111/60
[2016-10-21] MEDS ORDERED: LIDO:MAALOX:DONNATAL 1:1:1 15 ML SINGLE DOSE SWSW ONE (03:45)
== END 2016-10-21 04:10 | disposition home or self-care (01) ==
LOC: ER 00:35
DX: R10.13 Epigastric pain (principal); R11.2 Nausea with vomiting, unspecified; J45.909 Unspecified asthma, uncomplicated; M32.9 Systemic lupus erythematosus, unspecified; Z90.49 Acquired absence of other specified parts of digestive tract; Z90.710 Acquired absence of both cervix and uterus; Z98.890 Other specified postprocedural states; Z88.6 Allergy status to analgesic agent; Z88.8 Allergy status to other drugs, medicaments and biological substances
CPT/HCPCS: 36415; 80048; 80076; 82274; 83690; 85027; 96361; 96374; 96375; 96376; 99285; J1170; J2405; J7030; S0028

== ENCOUNTER 2016-12-12 02:29 | Observation (INO) | payer MEDICARE, OTHER ==
[~2016-12-12] VITALS: Ht 175.3 cm; Wt 101.6 kg
[~2016-12-12 02:29] MED LIST changes: +SUCR1TAB PO
[2016-12-12] MEDS ORDERED: IV NORMAL SALINE 1000ML BAG 1,000 ML IV SCH (02:45)
[2016-12-12] MEDS ORDERED: ONDANSETRON PF 4 MG/2 ML VIAL. IV ONE (03:45)
[2016-12-12 03:52] LABS: NEG OBC FOB NEG; POS OBC FOB POS
--- NOTE | 2016-12-12 04:09 | PHYS DOC ---
Past Medical History Past Medical History: Anxiety, Asthma, Depression, Pneumonia, P.U.D., Other Additional Past Medical Histor: Lupus; Erosive Gastritis Past Surgical History: Appendectomy, Cholecystectomy, , Hysterectomy, Other Additional Past Surgical Histo: breast implants and removal, rt ankle Alcohol Use: None Drug Use: None Adult General Chief Complaint Chief Complaint: HEMATEMESIS/VOMITING BLOOD HPI HPI Patient is a 56 year old female who presents with vomiting "coffee ground emesis". 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 She states she has lupus and takes chronic nonsteroidal anti-inflammatory medications for the pain. She denies any blood in her stools. She has some epigastric abdominal pain. Feels slightly dizzy. She was here October 21, 2016 with erosive gastritis and was discharged home to the emergency department. Hemoglobin at that time was 12.7 and hematocrit 38.3. She states her personal physician has left the area. No chest pain. Review of Systems Review of Systems Constitutional: Denies fever or chills Eyes: Denies change in visual acuity, redness, or eye pain HENT: Denies nasal congestion or sore throat Respiratory: Denies cough or shortness of breath Cardiovascular: No chest pain GI: POS abdominal pain, Some nausea, vomiting, No bloody stools or diarrhea : Denies dysuria or hematuria Musculoskeletal: Denies back pain or joint pain Integument: Denies rash or skin lesions Neurologic: Denies headache, focal weakness or sensory changes Current Medications Current Medications Current Medications Medications (Trade) Dose Ordered Sig/Queta Start Time Stop Time Status Last Admin Dose Admin Ondansetron HCl (Zofran) 4 mg 1X ONCE 12/12/16 03:45 12/12/16 03:46 DC 12/12/16 04:00 4 MG Sodium Chloride 1,000 ml @ 1,000 mls/hr Q1H 12/12/16 02:45 12/12/16 03:44 DC 12/12/16 04:00 1,000 MLS/HR Allergies Allergies Allergies Coded Allergies Type Severity Reaction Last Updated Verified gabapentin Allergy Intermediate 10/09/16 Yes NSAIDS (Non-Steroidal Anti-Inflamma Allergy Mild Nausea and Vomiting 10/09/16 Yes Physical Exam Physical Exam Constitutional: Well developed, well nourished, no acute distress, non-toxic appearance. HENT: Normocephalic, atraumatic, bilateral external ears normal, oropharynx moist, no oral exudates, nose normal. Eyes: PERRLA, EOMI, conjunctiva normal, no discharge. Neck: Normal range of motion, no tenderness, supple, no stridor. Cardiovascular:Heart rate regular rhythm, no murmur Lungs & Thorax: Bilateral breath sounds clear to auscultation Abdomen: Bowel sounds normal, soft, minimal tenderness to epigastric area, no masses, no pulsatile masses. Rectal: normal tone; normal stool. Hemoccult negative per lab. Skin: Warm, dry, no erythema, no rash. Back: No tenderness, no CVA tenderness. Extremities: No tenderness, no cyanosis, no clubbing, ROM intact, no edema. Neurologic: Alert and oriented X 3, normal motor function, normal sensory function, no focal deficits noted. Psychologic: Affect normal, judgement normal, mood normal. Current Patient Data Vital Signs Vital Signs Date Time Temp Pulse Resp B/P (MAP) Pulse Ox O2 Delivery O2 Flow Rate FiO2 12/12/16 02:45 98.2 96 20 153/89 (110) 92 Room Air 98.2 Lab Values Laboratory Tests Test 12/12/16 03:15 Stool Occult Blood Negative (NEG) Course & Med Decision Making Course & Med Decision Making Pertinent Labs and Imaging studies reviewed. (See chart for details) Evaluated patient upon arrival. Patient with long standing use of narcotic pain meds and she state that she "doesn't like to use them.' Very difficulty IV stick. Zofran IV and Geodon IM (for chronic narcotic-resistant pain). Dragon Disclaimer Dragon Disclaimer This electronic medical record was generated, in whole or in part, using a voice recognition dictation system. Departure Departure Impression: Primary Impression: Abdominal pain Additional Impression: Gastritis Referrals: NO PCP (PCP) Problem Qualifiers CARLA LOPEZ MD Dec 12, 2016 04:09
[2016-12-12 04:16] LABS: BASO % 1 % (0-3); EOS % 0 % (0-3); HEMATOCRIT 32.6 % (36.0-47.0); HEMOGLOBIN 10.9 g/dL (12.0-15.5); LYMPH # 2.5 x10^3/uL (1.0-4.8); LYMPH % 30 % (24-48); MEAN CORPUSCULAR HEMOGLOBIN 31 pg (25-35); MEAN CORPUSCULAR HGB CONC 34 g/dL (31-37); MEAN CORPUSCULAR VOLUME 91 fL (79-100); MONO % 8 % (0-9); NEUT % 61 % (31-73); PLATELET COUNT 216 x10^3/uL (140-400); RED BLOOD COUNT 3.58 x10^6/uL (3.50-5.40); RED CELL DISTRIBUTION WIDTH 14.5 % (11.5-14.5); WHITE BLOOD COUNT 8.2 x10^3/uL (4.0-11.0)
[2016-12-12 04:26] LABS: PROTHROMBIN TIME PATIENT 12.5 SEC (11.7-14.0)
[2016-12-12] MEDS ORDERED: LIDO:MAALOX:DONNATAL 1:1:1 15 ML SINGLE DOSE SWSW ONE (04:30)
[2016-12-12] MEDS ORDERED: ZIPRASIDONE IM 20 MG VIAL. IM ONE (04:30)
[2016-12-12 04:36] LABS: ANION GAP 9 (6-14); BLOOD UREA NITROGEN 25 mg/dL (7-20); CALCIUM 8.7 mg/dL (8.5-10.1); CARBON DIOXIDE 28 mmol/L (21-32); CHLORIDE 105 mmol/L (98-107); CREATININE 0.7 mg/dL (0.6-1.0); GFR 86.2; GLUCOSE 100 mg/dL (70-99); POTASSIUM 3.9 mmol/L (3.5-5.1); SODIUM 142 mmol/L (136-145)
[2016-12-12 04:41] LABS: ALBUMIN 3.3 g/dL (3.4-5.0); ALK PHOS 97 U/L (46-116); ALT (SGPT) 17 U/L (14-59); AST (SGOT) 10 U/L (15-37); DIRECT BILIRUBIN < 0.1 mg/dL (0.0-0.2); TOTAL BILIRUBIN 0.1 mg/dL (0.2-1.0); TOTAL PROTEIN 6.8 g/dL (6.4-8.2)
[2016-12-12] MEDS ORDERED: fentaNYL PF VIAL 100 MCG/2 ML VIAL IV ONE (05:00)
[2016-12-12] MEDS ORDERED: ONDANSETRON PF 4 MG/2 ML VIAL. IV PRN ×2 (05:30→09:40)
[2016-12-12] MEDS ORDERED: fentaNYL PF VIAL 100 MCG/2 ML VIAL IV PRN (05:30)
[2016-12-12 07:49] VITALS: BP 131/61
[2016-12-12 07:50] VITALS: BP 131/61
[2016-12-12] MEDS: MORPHINE SULFATE 4 MG/ML DISP.SYRIN. IV PRN ×7 (08:21→22:07)
[2016-12-12] MEDS ORDERED: FAMOTIDINE 20 MG/2 ML VIAL IVP SCH (09:00)
[2016-12-12] MEDS ORDERED: CYCLOBENZAPRINE 10 MG TABLET. PO PRN (09:45)
[2016-12-12] MEDS ORDERED: oxyCODONE/APAP 5/325 1 TAB TABLET PO PRN (09:45)
[2016-12-12] MEDS ORDERED: ACETAMINOPHEN PO PRN (09:45)
[2016-12-12] MEDS ORDERED: MAG HYDROX/ALUMINUM HYD/SIMETH 30 ML ORAL.SUSP PO PRN (09:45)
[2016-12-12] MEDS ORDERED: OXYCODONE HCL PO PRN (09:45)
[2016-12-12] MEDS: VENLAFAXINE 75 MG TABLET. PO SCH ×4 (10:21→22:07)
[2016-12-12] MEDS: carBAMazepine 200 MG TABLET PO SCH (10:21)
[2016-12-12] MEDS: PREGABALIN 75 MG CAPSULE PO SCH ×2 (10:21→22:08)
[2016-12-12] MEDS: ALPRAZolam 1 MG TABLET PO PRN ×2 (10:21→17:05)
[2016-12-12] MEDS: PANTOPRAZOLE 40 MG TABLET.DR. PO SCH ×2 (10:21→17:05)
[2016-12-12] MEDS: LEVOTHYROXINE 125 MCG TABLET PO SCH (10:21)
[2016-12-12] MEDS: traMADol 50 MG TABLET PO SCH ×2 (10:25→22:07)
[2016-12-12] MEDS: SUCRALFATE 1 GM TABLET. PO SCH ×2 (10:26→17:05)
[2016-12-12 10:55] VITALS: BP 119/71
--- NOTE | 2016-12-12 14:40 | PDOC1 ---
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 She was admitted here September for the same, EGD done showed gastritis, She claims she takes her PPI but I did ask her details (how frequent, carafate etc- which she was dcd on ) and she could not tell me these, Hence I doubt her compliance, I have had 5 calls at least just in AM from the RN for multiple calls re pain meds, she has visited RN station maybe 10 times now for pain meds. I told her I will not do dilaudid as this will not solve her gastritis. Did discuss with Gi DEMO COORDINATOR, could see as OP but they can also see inpt if she stays. Will rpt HH andrés, make sure not dropping, If stable, home andrés I did consult GI. LAst abd ct was October 17, showed: IMPRESSION: 1. No evidence of bowel obstruction or hydronephrosis. 2. Cystic lesion left kidney. 3. Questionable region of nipple retraction on the right. This could be positional in nature but if there is physical exam finding of nipple retraction would consider obtaining a follow-up mammogram and/or ultrasound if one has not been obtained recently. Past Medical History Cardiovascular: No pertinent hx Pulmonary: No pertinent hx CENTRAL NERVOUS SYSTEM: Periperal neuropathy GI: Peptic Ulcer disease Heme/Onc: Other Hepatobiliary: No pertinent hx Psych: Anxiety Musculoskeletal: Osteoarthritis Rheumatologic: No pertinent hx Infectious disease: No pertinent hx Renal/: No pertinent hx Endocrine: Hypothyroidism Past Surgical History Past Surgical History: Appendectomy, Arthroscopy, Cholecystectomy, , Hysterectomy, Other Family History Family History: Hypertension Social History Smoke: No ALCOHOL: rare Drugs: None Current Problem List Problem List Problems Medical Problems: (1) Abdominal pain Status: Acute (2) Gastritis Status: Acute Problems: Current Medications Current Medications Current Medications Sodium Chloride 1,000 ml @ 1,000 mls/hr Q1H IV Last administered on 12/12/16t 04:00; Start 12/12/16 at 02:45; Stop 12/12/16 at 03:44; Status DC Ondansetron HCl (Zofran) 4 mg 1X ONCE IV Last administered on 12/12/16 04:00 ; Start 12/12/16 at 03:45; Stop 12/12/16 at 03:46; Status DC Ziprasidone (Geodon Im) 10 mg 1X ONCE IM ; Start 12/12/16 at 04:30; Stop at 04:57; Status DC Multi-Ingredient Mouthwash/Gargle (Gi Cocktail Single Dose) 15 ml 1X ONCE SWSW Last administered on 12/12/16 04:37; Start 12/12/16 at 04:30; Stop 12/12/16 at 04:31; Status DC Fentanyl Citrate (Fentanyl 2ml Vial) 50 mcg 1X ONCE IV Last administered on 05:10; Start 12/12/16 at 05:00; Stop 12/12/16 at 05:04; Status DC Ondansetron HCl (Zofran) 4 mg PRN Q8HRS PRN IV NAUSEA/VOMITING; Start 12/12/16 at 05:30; Stop 12/12/16 at 09:42; Status DC Fentanyl Citrate (Fentanyl 2ml Vial) 50 mcg PRN Q2HR PRN IV PAIN Last administered on 12/12/16 06:14; Start 12/12/16 at 05:30; Stop 12/13/16 at 05:29 Famotidine (Pepcid) 20 mg BID IVP ; Start 12/12/16 at 09:00; Stop 12/12/16 at 09 :42; Status DC Morphine Sulfate 2 mg PRN Q2HR PRN IV PAIN Last administered on 12/12/16 12:26 ; Start 12/12/16 at 08:15 Ondansetron HCl (Zofran) 4 mg PRN Q6HRS PRN IV NAUSEA/VOMITING Last administered on 12/12/16 10:16; Start 12/12/16 at 09:40; Stop 12/13/16 at 09:39 Pantoprazole Sodium (Protonix) 40 mg BIDAC PO Last administered on 12/12/16 10 :21; Start 12/12/16 at 10:00 Al Hydroxide/Mg Hydroxide (Mylanta Plus Xs) 30 ml PRN Q2HR PRN PO HEARTBURN / GAS; Start 12/12/16 at 09:45 Alprazolam (Xanax) 1 mg PRN Q6HRS PRN PO ANXIETY / AGITATION Last administered on 12/12/16 10:21; Start 12/12/16 at 09:45 Carbamazepine (TEGretol) 200 mg DAILY PO Last administered on 12/12/16 10:21; Start 12/12/16 at 10:00 Cyclobenzaprine HCl (Flexeril) 10 mg PRN Q6HRS PRN PO MUSCLE SPASMS; Start at 09:45 Levothyroxine Sodium (Synthroid) 125 mcg DAILY07 PO Last administered on 10:21; Start 12/12/16 at 10:00 Oxycodone/ Acetaminophen (Percocet 5/325) 2 tab PRN Q4HRS PRN PO MODERATE TO SEVERE PAIN; Start 12/12/16 at 09:45 Sucralfate (Carafate) 1 gm TIDAC PO ; Start 12/12/16 at 11:30 Tramadol HCl (Ultram) 50 mg BID PO ; Start 12/12/16 at 11:00 Zolpidem Tartrate (Ambien) 5 mg QHS PO ; Start 12/12/16 at 21:00 Pregabalin (Lyrica) 150 mg BID PO Last administered on 12/12/16 10:21; Start 12/12/16 at 10:00 Trazodone HCl (Desyrel) 300 mg QHS PO ; Start 12/12/16 at 21:00 Venlafaxine HCl (Effexor) 75 mg QID PO Last administered on 12/12/16 12:30; Start 12/12/16 at 10:00 Non-Formulary Medication 1 tab PRN Q4HRS PRN PO MODERATE PAIN; Start 12/12/16 at 09:45; Status UNV Active Scripts Active Sucralfate 1 Gm Tablet 1 Tab PO TID Pantoprazole Sodium 40 Mg Tablet.dr 40 Mg PO BIDAC 15 Days [Oxycodone Hcl/Acetaminophen] 1 TAB Tablet 1 Tab PO PRN Q4HRS PRN Oxycodone-Acetaminophen 5-325 (Oxycodone Hcl/Acetaminophen) 1 Each Tablet 2 Tab PO PRN Q4HRS PRN Cyclobenzaprine Hcl 10 Mg Tablet 10 Mg PO PRN Q6HRS PRN 5 Days Reported Tramadol Hcl 50 Mg Tablet 1 Tab PO BID Alprazolam 1 Mg Tablet 1 Mg PO PRN Q6HRS PRN Effexor Xr (Venlafaxine Hcl) 150 Mg Cap.er.24h 300 Mg PO DAILY Lyrica (Pregabalin) 150 Mg Capsule 1 Cap PO BID Ambien (Zolpidem Tartrate) 5 Mg Tablet 1 Tab PO QHS Trazodone Hcl 300 Mg Tablet 1 Tab PO QHS Levothyroxine Sodium 125 Mcg Tablet 1 Tab PO DAILY Tegretol (Carbamazepine) 200 Mg Tablet 200 Mg PO Xanax (Alprazolam) 2 Mg Tablet 1 Tab PO TID Allergies Allergies: Coded Allergies: gabapentin (Verified Allergy, Intermediate, 10/09/16) NSAIDS (Non-Steroidal Anti-Inflamma (Verified Allergy, Mild, Nausea and Vomiting, 10/09/16) ROS Review of System crying in pain but no tears Physical Exam General: Cooperative, No acute distress, Other (overtly dramatic) HEENT: PERRLA Lungs: Clear to auscultation, Normal air movement Heart: S1S2, RRR, no thrills, no rubs, no gallops, no murmurs Cardiovascular: S1, S2 Breasts: Normal, Rt breast nml w/o mass, Lt breast nml w/o mass, Nipples normal Abdomen: Normal bowel sounds, Soft, No tenderness, No hepatosplenomegaly, No masses Rectal Exam: not examined PELVIC: Nml ext genitalia Extremities: No clubbing, No cyanosis, No edema, Normal pulses, No tenderness/ swelling Skin: No rashes, No breakdown, No significant lesion Neuro: Normal gait, Normal speech, Strength at 5/5 X4 ext, Normal tone, Sensation intact, Cranial nerves 3-12 NL, Reflexes 2+ Psych/Mental Status: Mental status NL, Mood NL Vitals Vitals Vital Signs Date Time Temp Pulse Resp B/P (MAP) Pulse Ox O2 Delivery O2 Flow Rate FiO2 12/12/16 12:58 96 Room Air 12/12/16 10:55 97.2 64 18 119/71 (87) 97.2 Labs Labs Laboratory Tests Test 12/12/16 03:15 12/12/16 04:05 Stool Occult Blood Negative (NEG) White Blood Count 8.2 x10^3/uL (4.0-11.0) Red Blood Count 3.58 x10^6/uL (3.50-5.40) Hemoglobin 10.9 g/dL (12.0-15.5) Hematocrit 32.6 % (36.0-47.0) Mean Corpuscular Volume 91 fL (79-100) Mean Corpuscular Hemoglobin 31 pg (25-35) Mean Corpuscular Hemoglobin Concent 34 g/dL (31-37) Red Cell Distribution Width 14.5 % (11.5-14.5) Platelet Count 216 x10^3/uL (140-400) Neutrophils (%) (Auto) 61 % (31-73) Lymphocytes (%) (Auto) 30 % (24-48) Monocytes (%) (Auto) 8 % (0-9) Eosinophils (%) (Auto) 0 % (0-3) Basophils (%) (Auto) 1 % (0-3) Neutrophils # (Auto) 5.0 x10^3uL (1.8-7.7) Lymphocytes # (Auto) 2.5 x10^3/uL (1.0-4.8) Monocytes # (Auto) 0.6 x10^3/uL (0.0-1.1) Eosinophils # (Auto) 0.0 x10^3/uL (0.0-0.7) Basophils # (Auto) 0.0 x10^3/uL (0.0-0.2) Prothrombin Time 12.5 SEC (11.7-14.0) Prothromb Time International Ratio 1.0 (0.8-1.1) Activated Partial Thromboplast Time 30 SEC (24-38) Sodium Level 142 mmol/L (136-145) Potassium Level 3.9 mmol/L (3.5-5.1) Chloride Level 105 mmol/L (98-107) Carbon Dioxide Level 28 mmol/L (21-32) Anion Gap 9 (6-14) Blood Urea Nitrogen 25 mg/dL (7-20) Creatinine 0.7 mg/dL (0.6-1.0) Estimated GFR (Cockcroft-Gault) 86.2 Glucose Level 100 mg/dL (70-99) Calcium Level 8.7 mg/dL (8.5-10.1) Total Bilirubin 0.1 mg/dL (0.2-1.0) Direct Bilirubin < 0.1 mg/dL (0.0-0.2) Aspartate Amino Transf (AST/SGOT) 10 U/L (15-37) Alanine Aminotransferase (ALT/SGPT) 17 U/L (14-59) Alkaline Phosphatase 97 U/L (46-116) Total Protein 6.8 g/dL (6.4-8.2) Albumin 3.3 g/dL (3.4-5.0) Lipase 140 U/L (73-393) Laboratory Tests Test 12/12/16 03:15 12/12/16 04:05 Stool Occult Blood Negative (NEG) White Blood Count 8.2 x10^3/uL (4.0-11.0) Red Blood Count 3.58 x10^6/uL (3.50-5.40) Hemoglobin 10.9 g/dL (12.0-15.5) Hematocrit 32.6 % (36.0-47.0) Mean Corpuscular Volume 91 fL (79-100) Mean Corpuscular Hemoglobin 31 pg (25-35) Mean Corpuscular Hemoglobin Concent 34 g/dL (31-37) Red Cell Distribution Width 14.5 % (11.5-14.5) Platelet Count 216 x10^3/uL (140-400) Neutrophils (%) (Auto) 61 % (31-73) Lymphocytes (%) (Auto) 30 % (24-48) Monocytes (%) (Auto) 8 % (0-9) Eosinophils (%) (Auto) 0 % (0-3) Basophils (%) (Auto) 1 % (0-3) Neutrophils # (Auto) 5.0 x10^3uL (1.8-7.7) Lymphocytes # (Auto) 2.5 x10^3/uL (1.0-4.8) Monocytes # (Auto) 0.6 x10^3/uL (0.0-1.1) Eosinophils # (Auto) 0.0 x10^3/uL (0.0-0.7) Basophils # (Auto) 0.0 x10^3/uL (0.0-0.2) Prothrombin Time 12.5 SEC (11.7-14.0) Prothromb Time International Ratio 1.0 (0.8-1.1) Activated Partial Thromboplast Time 30 SEC (24-38) Sodium Level 142 mmol/L (136-145) Potassium Level 3.9 mmol/L (3.5-5.1) Chloride Level 105 mmol/L (98-107) Carbon Dioxide Level 28 mmol/L (21-32) Anion Gap 9 (6-14) Blood Urea Nitrogen 25 mg/dL (7-20) Creatinine 0.7 mg/dL (0.6-1.0) Estimated GFR (Cockcroft-Gault) 86.2 Glucose Level 100 mg/dL (70-99) Calcium Level 8.7 mg/dL (8.5-10.1) Total Bilirubin 0.1 mg/dL (0.2-1.0) Direct Bilirubin < 0.1 mg/dL (0.0-0.2) Aspartate Amino Transf (AST/SGOT) 10 U/L (15-37) Alanine Aminotransferase (ALT/SGPT) 17 U/L (14-59) Alkaline Phosphatase 97 U/L (46-116) Total Protein 6.8 g/dL (6.4-8.2) Albumin 3.3 g/dL (3.4-5.0) Lipase 140 U/L (73-393) VTE Prophylaxis Ordered VTE Prophylaxis Devices: Yes VTE Pharmacological Prophylaxi: Yes Assessment/Plan Assessment/Plan 1. GAstritis, non compliant with PPI BID and carafate TID 2. NOrmocytic anemia - did drop to 10 from 12 on dc last September 3. NArc addiction PLAN: Resume home PPI and CArafate Monitor for coffee ground - she claims this happened at 2 AM, staff unable to verify this to me MENDOZA bowen If stable home andrés Clarke of GI and RN and patient - As per GI, unlikely plans of re scoping NO DILAUDID PLS Difficult pt, signif time TANIYA RESENDIZ MD Dec 12, 2016 14:39
[2016-12-12 15:25] VITALS: BP 114/81
--- NOTE | 2016-12-12 15:30 | PDOC2 ---
GI CONSULT Reason For Consult: Abd pain, dropping Hgb HPI: HPI: 56 y/o female who we know from previous admission in 09/2016. At that time reported upper abdominal pain w/ coffee-ground emesis and gave h/o previous GI bleed/PUD (EGD and colonoscopy in [place]) attributed to NSAIDs. Underwent EGD on 04/15 which revealed erosive gastritis. Hgb remained WNL during that admission and recurrent bleeding/vomiting was not witnessed (although she reported she "vomited blood all over herself" prior to discharge). Did display drug-seeking behavior (w/ Dilaudid). Was advised to continue PPI and avoid NSAIDs. Has been to ER twice since then for same symptoms, Hgb normal (12s) each time. On this occasion, again reports upper abd pain and coffee-ground emesis. Has felt ill since yesterday w/ bloating and nausea, kept to a diet of mostly liquids. Then awoke at 2:30 a.m. w/ coffee-ground emesis and "tasted blood." Took 3 Zofran and came to the ER. This time, Hgb is 10.9 and BUN is 27. Stool occult blood was negative. When asked about her bowel habits, she first reports 1 formed normal-colored stool daily, but then says stools have been "tarry." She is quite upset, speaking loudly and near tears, saying it has been implied she is drug-seeking. She says she hates narcotics. Has had clear liquids today. She tells me she has continued Pantoprazole 40mg BID + sucralfate BID but has also continued "off and on" prednisone "packs" and generally takes 4 Aleve QD despite her previous history of PUD and recent EGD w/ erosive gastritis. "I don 't want any narcotics. I don't need Dilaudid or Fentanly but I need something more than they're giving me now." She says pain is too intense without NSAIDs but has a hard time describing where her pain is, eventually settling on "my joints." Still does not have a PCP but has been seeing Dr. Culver (psych) for who prescribes her Effexor, Xanax, and Lyrica. Her brother was found in her home earlier this year, presumably from alcoholism. Note previously reported hepatotoxicity 2/2 Imuran trial for lupus. PMH: PMH: lupus, anxiety/depression, PUD, hiatal hernia, TRENA, peripheral neuropathy, C- section, cholecystectomy, appendectomy, hysterectomy, breast augmentation x 2, right ankle surgery, left shoulder surgery FH: Family History: Cancer (previously reported sister had breast cancer, now says aunt and mother had colon cancer and sister had sinus cancer), Other (brother - alcoholism) Social History: Smoke: No ALCOHOL: rare Drugs: None ROS: GEN: Denies fevers, chills, sweats HEENT: Denies blurred vision, sore throat CV: Denies chest pain RESP: Denies shortness of air, cough GI: Per HPI : Denies hematuria, dysuria ENDO: Denies weight changes NEURO: +dizziness MSK: Denies weakness, joint pain/swelling SKIN: Denies jaundice, pruritus Vitals: Vitals: Vital Signs Date Time Temp Pulse Resp B/P (MAP) Pulse Ox O2 Delivery O2 Flow Rate FiO2 12/12/16 14:42 96 Room Air 12/12/16 10:55 97.2 64 18 119/71 (87) 97.2 Labs: Labs: Laboratory Tests Test 12/12/16 03:15 12/12/16 04:05 Stool Occult Blood Negative (NEG) White Blood Count 8.2 x10^3/uL (4.0-11.0) Red Blood Count 3.58 x10^6/uL (3.50-5.40) Hemoglobin 10.9 g/dL (12.0-15.5) Hematocrit 32.6 % (36.0-47.0) Mean Corpuscular Volume 91 fL (79-100) Mean Corpuscular Hemoglobin 31 pg (25-35) Mean Corpuscular Hemoglobin Concent 34 g/dL (31-37) Red Cell Distribution Width 14.5 % (11.5-14.5) Platelet Count 216 x10^3/uL (140-400) Neutrophils (%) (Auto) 61 % (31-73) Lymphocytes (%) (Auto) 30 % (24-48) Monocytes (%) (Auto) 8 % (0-9) Eosinophils (%) (Auto) 0 % (0-3) Basophils (%) (Auto) 1 % (0-3) Neutrophils # (Auto) 5.0 x10^3uL (1.8-7.7) Lymphocytes # (Auto) 2.5 x10^3/uL (1.0-4.8) Monocytes # (Auto) 0.6 x10^3/uL (0.0-1.1) Eosinophils # (Auto) 0.0 x10^3/uL (0.0-0.7) Basophils # (Auto) 0.0 x10^3/uL (0.0-0.2) Prothrombin Time 12.5 SEC (11.7-14.0) Prothromb Time International Ratio 1.0 (0.8-1.1) Activated Partial Thromboplast Time 30 SEC (24-38) Sodium Level 142 mmol/L (136-145) Potassium Level 3.9 mmol/L (3.5-5.1) Chloride Level 105 mmol/L (98-107) Carbon Dioxide Level 28 mmol/L (21-32) Anion Gap 9 (6-14) Blood Urea Nitrogen 25 mg/dL (7-20) Creatinine 0.7 mg/dL (0.6-1.0) Estimated GFR (Cockcroft-Gault) 86.2 Glucose Level 100 mg/dL (70-99) Calcium Level 8.7 mg/dL (8.5-10.1) Total Bilirubin 0.1 mg/dL (0.2-1.0) Direct Bilirubin < 0.1 mg/dL (0.0-0.2) Aspartate Amino Transf (AST/SGOT) 10 U/L (15-37) Alanine Aminotransferase (ALT/SGPT) 17 U/L (14-59) Alkaline Phosphatase 97 U/L (46-116) Total Protein 6.8 g/dL (6.4-8.2) Albumin 3.3 g/dL (3.4-5.0) Lipase 140 U/L (73-393) Allergies: Coded Allergies: gabapentin (Verified Allergy, Intermediate, 10/09/16) NSAIDS (Non-Steroidal Anti-Inflamma (Verified Allergy, Mild, Nausea and Vomiting, 10/09/16) Medications: Current Medications Medications (Trade) Dose Ordered Sig/Queta Route PRN Reason Start Time Stop Time Status Last Admin Dose Admin Sodium Chloride 1,000 ml @ 1,000 mls/hr Q1H IV 12/12/16 02:45 12/12/16 03:44 DC 12/12/16 04:00 Ondansetron HCl (Zofran) 4 mg 1X ONCE IV 12/12/16 03:45 12/12/16 03:46 DC 12/12/16 04:00 Multi-Ingredient Mouthwash/Gargle (Gi Cocktail Single Dose) 15 ml 1X ONCE SWSW 12/12/16 04:30 12/12/16 04:31 DC 12/12/16 04:37 Fentanyl Citrate (Fentanyl 2ml Vial) 50 mcg 1X ONCE IV 12/12/16 05:00 12/12/16 05:04 DC 12/12/16 05:10 Fentanyl Citrate (Fentanyl 2ml Vial) 50 mcg PRN Q2HR PRN IV PAIN 12/12/16 05:30 12/12/16 14:34 DC 12/12/16 06:14 Morphine Sulfate 2 mg PRN Q2HR PRN IV PAIN 12/12/16 08:15 12/12/16 14:34 DC 12/12/16 12:26 Ondansetron HCl (Zofran) 4 mg PRN Q6HRS PRN IV NAUSEA/VOMITING 12/12/16 09:40 12/13/16 09:39 12/12/16 10:16 Pantoprazole Sodium (Protonix) 40 mg BIDAC PO 12/12/16 10:00 12/12/16 10:21 Alprazolam (Xanax) 1 mg PRN Q6HRS PRN PO ANXIETY / AGITATION 12/12/16 09:45 12/12/16 10:21 Carbamazepine (TEGretol) 200 mg DAILY PO 12/12/16 10:00 12/12/16 10:21 Levothyroxine Sodium (Synthroid) 125 mcg DAILY07 PO 12/12/16 10:00 12/12/16 10:21 Pregabalin (Lyrica) 150 mg BID PO 12/12/16 10:00 12/12/16 10:21 Venlafaxine HCl (Effexor) 75 mg QID PO 12/12/16 10:00 12/12/16 12:30 Morphine Sulfate 4 mg PRN Q2HR PRN IV PAIN 12/12/16 14:45 12/12/16 14:42 Imaging: Imaging: CT A/P 10/17/16 FINDINGS: Abdomen: Chest Base: Partially imaged without gross abnormality. Vessels: No abdominal aortic aneurysm. Liver/Biliary: Postcholecystectomy. Pancreas: No peripancreatic edema. Spleen: Normal. Kidneys/Adrenal: 25 mm cystic lesion left kidney. No hydronephrosis. GI: Appendix not well seen. No dilated loops of bowel to suggest obstruction. Contrast is seen within the left common femoral vein layering into the left iliac veins. Pelvis: Bladder: No definite adjacent inflammation. Degenerative changes spine degenerative changes right hip. IMPRESSION: 1. No evidence of bowel obstruction or hydronephrosis. 2. Cystic lesion left kidney. 3. Questionable region of nipple retraction on the right. This could be positional in nature but if there is physical exam finding of nipple retraction would consider obtaining a follow-up mammogram and/or ultrasound if one has not been obtained recently. PE: GEN: upset HEENT: Atraumatic, PERRL LUNGS: CTAB anteriorly HEART: RRR ABD: BS+, overweight/possibly some distention, not tender w/ placement of stethoscope, palpation w/ hand reveals tenderness in BUQ and epigastrium EXTREMITY: No edema SKIN: No rashes, no jaundice NEURO/PSYCH: A & O 3 A/P: A/P: Upper abd pain Coffee-ground emesis, ?tarry stool Normocytic anemia w/ elevated BUN, stool occult negative H/o PUD, recent EGD w/ erosive gastritis, on PPI NSAID use H/o drug-seeking behavior, chronic pain, lupus, psych issues CRC screen - colonoscopy in [place] ~2 years ago -- Recurrent ER visits/admissions w/ EGD 9 weeks ago, known erosive gastritis. Hgb 10.9 compared to 12.7 in September. BUN elevated. Tolerated clears today, plans to advance to full liquids. Agree w/ continued PPI, sucralfate okay. ?GI cocktail for pain D/w Dr. Smart - no plans to repeat EGD at this time. Needs to establish PCP and rheumatology as outpt re: lupus, pain. She has health insurance but says some days she feels too bad to think about finding a doctor. Will ask neuro to see, r/o lupus cerebritis. ORLANDO ANAND Dec 12, 2016 15:30
--- NOTE | 2016-12-12 17:52 | PDOC2 ---
NEUROLOGY CONSULT Date of Admission Date of Admission DATE: 12/12/16 TIME: 17:40 Reason for Consult Reason for Consult: IMPRESSION: Lupus cognitive impairment. Psychiatric issues. GI bleeding. Erosive gastritis. Neuropathy in LE. Anxiety. Narcotics dependence. Doubt lupus cerebritis at the present time. RECOMMENDATIONS/PLAN: EEG Lab: see orders. Treat medical diseases. HISTORY OF THE PRESENT ILLNESS: 56-y-old female patient with Hx of lupus that was diagnosed about 4 years ago. She said she has been taking non-steroids antiinflammatory medications and has erosive gastritis. She has nausea and vomiting brown colored gastric content to be admitted into the hospital. She was observed some behavior changes so Neurology was called for consultation. Past Medical History Cardiovascular: No pertinent hx Pulmonary: No pertinent hx CENTRAL NERVOUS SYSTEM: Periperal neuropathy GI: Peptic Ulcer disease Heme/Onc: Other Hepatobiliary: No pertinent hx Psych: Anxiety Musculoskeletal: Osteoarthritis Rheumatologic: No pertinent hx Infectious disease: No pertinent hx Renal/: No pertinent hx Endocrine: Hypothyroidism Past Surgical History Appendectomy, Arthroscopy, Cholecystectomy, , Hysterectomy, Other Family History Hypertension Social History Smoke: No ALCOHOL: rare Drugs: None ALLERGY: Reviewed. MEDICATIONS: Refer to [facility] REVIEW OF SYSTEMS: Constitutional: No malnutrition, weight loss, cachexia. Head: No traumatic brain or head injury. Skin: No edema, or rash. Ear: No infection. Eyes: No vision loss or color blindness. Nose: No bleeding or purulent discharges. Hearing: No hearing decrease. Neck: No injury. Breast: No history of cancer, masses,or discharges. Cardiac: No [place], arrhythmia. Pulmonary: No COPD. GI: GI bleeding this time. Urinary/genital: UTI. Endocrinologic: Obesity. Skeletomuscular: No muscular atrophy, deformity. Neurological: see HP. Psychiatric: Denies drug use/abuse. Otherwise, not [id number] review of systems. PHYSICAL EXAMINATION: General appearance is talkative.. HEENT: Normocephalic and nontraumatic. Eyes, nose, ears, and throat are unremarkable. Neck is supple. No lymphadenopathy. No bruits are heard over the carotid artery. No crepitus. Cardiovascular: S1, S2, regular rate and rhythm. Pulmonary: Clear to auscultation bilaterally. Abdomen: Bowel sounds are positive. Extremities: No rash, lesions, or edema. No restriction of range of motion NEUROLOGICAL EXAMINATION: Alert Oriented to time, place and person. PERRL. EOMI. CN: no focal findings. Muscle tone: within normal. Muscle strength: 5 DTR: 2 Plantar reflex: Flexor response bilaterally Gait: not examined in bed. Sensory exam: no abnormal findings. No cerebellar signs elicited. F-T-N test fine. Current Medications Current Medications Current Medications Sodium Chloride 1,000 ml @ 1,000 mls/hr Q1H IV Last administered on 12/12/16 04:00; Start 12/12/16 at 02:45; Stop 12/12/16 at 03:44; Status DC Ondansetron HCl (Zofran) 4 mg 1X ONCE IV Last administered on 12/12/16 04:00 ; Start 12/12/16 at 03:45; Stop 12/12/16 at 03:46; Status DC Ziprasidone (Geodon Im) 10 mg 1X ONCE IM ; Start 12/12/16 at 04:30; Stop at 04:57; Status DC Multi-Ingredient Mouthwash/Gargle (Gi Cocktail Single Dose) 15 ml 1X ONCE SWSW Last administered on 12/12/16 04:37; Start 12/12/16 at 04:30; Stop 12/12/16 at 04:31; Status DC Fentanyl Citrate (Fentanyl 2ml Vial) 50 mcg 1X ONCE IV Last administered on 05:10; Start 12/12/16 at 05:00; Stop 12/12/16 at 05:04; Status DC Ondansetron HCl (Zofran) 4 mg PRN Q8HRS PRN IV NAUSEA/VOMITING; Start 12/12/16 at 05:30; Stop 12/12/16 at 09:42; Status DC Fentanyl Citrate (Fentanyl 2ml Vial) 50 mcg PRN Q2HR PRN IV PAIN Last administered on 12/12/16 06:14; Start 12/12/16 at 05:30; Stop 12/12/16 at 14:34 ; Status DC Famotidine (Pepcid) 20 mg BID IVP ; Start 12/12/16 at 09:00; Stop 12/12/16 at 09 :42; Status DC Morphine Sulfate 2 mg PRN Q2HR PRN IV PAIN Last administered on 12/12/16 12:26 ; Start 12/12/16 at 08:15; Stop 12/12/16 at 14:34; Status DC Ondansetron HCl (Zofran) 4 mg PRN Q6HRS PRN IV NAUSEA/VOMITING Last administered on 12/12/16 10:16; Start 12/12/16 at 09:40; Stop 12/13/16 at 09:39 Pantoprazole Sodium (Protonix) 40 mg BIDAC PO Last administered on 12/12/16 17 :05; Start 12/12/16 at 10:00 Al Hydroxide/Mg Hydroxide (Mylanta Plus Xs) 30 ml PRN Q2HR PRN PO HEARTBURN / GAS; Start 12/12/16 at 09:45 Alprazolam (Xanax) 1 mg PRN Q6HRS PRN PO ANXIETY / AGITATION Last administered on 12/12/16 17:05; Start 12/12/16 at 09:45 Carbamazepine (TEGretol) 200 mg DAILY PO Last administered on 12/12/16 10:21; Start 12/12/16 at 10:00 Cyclobenzaprine HCl (Flexeril) 10 mg PRN Q6HRS PRN PO MUSCLE SPASMS; Start at 09:45 Levothyroxine Sodium (Synthroid) 125 mcg DAILY07 PO Last administered on 10:21; Start 12/12/16 at 10:00 Oxycodone/ Acetaminophen (Percocet 5/325) 2 tab PRN Q4HRS PRN PO MODERATE TO SEVERE PAIN; Start 12/12/16 at 09:45 Sucralfate (Carafate) 1 gm TIDAC PO Last administered on 12/12/16 17:05; Start 12/12/16 at 11:30 Tramadol HCl (Ultram) 50 mg BID PO ; Start 12/12/16 at 11:00 Zolpidem Tartrate (Ambien) 5 mg QHS PO ; Start 12/12/16 at 21:00 Pregabalin (Lyrica) 150 mg BID PO Last administered on 12/12/16 10:21; Start 12/12/16 at 10:00 Trazodone HCl (Desyrel) 300 mg QHS PO ; Start 12/12/16 at 21:00 Venlafaxine HCl (Effexor) 75 mg QID PO Last administered on 12/12/16 17:05; Start 12/12/16 at 10:00 Non-Formulary Medication 1 tab PRN Q4HRS PRN PO MODERATE PAIN; Start 12/12/16 at 09:45; Status UNV Morphine Sulfate 4 mg PRN Q2HR PRN IV PAIN Last administered on 12/12/16 17:06 ; Start 12/12/16 at 14:45 Prednisone (Prednisone) 20 mg DAILY PO ; Start 12/12/16 at 18:00 Active Scripts Active Sucralfate 1 Gm Tablet 1 Tab PO TID Pantoprazole Sodium 40 Mg Tablet.dr 40 Mg PO BIDAC 15 Days [Oxycodone Hcl/Acetaminophen] 1 TAB Tablet 1 Tab PO PRN Q4HRS PRN Oxycodone-Acetaminophen 5-325 (Oxycodone Hcl/Acetaminophen) 1 Each Tablet 2 Tab PO PRN Q4HRS PRN Cyclobenzaprine Hcl 10 Mg Tablet 10 Mg PO PRN Q6HRS PRN 5 Days Reported Tramadol Hcl 50 Mg Tablet 1 Tab PO BID Alprazolam 1 Mg Tablet 1 Mg PO PRN Q6HRS PRN Effexor Xr (Venlafaxine Hcl) 150 Mg Cap.er.24h 300 Mg PO DAILY Lyrica (Pregabalin) 150 Mg Capsule 1 Cap PO BID Ambien (Zolpidem Tartrate) 5 Mg Tablet 1 Tab PO QHS Trazodone Hcl 300 Mg Tablet 1 Tab PO QHS Levothyroxine Sodium 125 Mcg Tablet 1 Tab PO DAILY Tegretol (Carbamazepine) 200 Mg Tablet 200 Mg PO Xanax (Alprazolam) 2 Mg Tablet 1 Tab PO TID Allergies Allergies: Coded Allergies: gabapentin (Verified Allergy, Intermediate, 10/09/16) NSAIDS (Non-Steroidal Anti-Inflamma (Verified Allergy, Mild, Nausea and Vomiting, 10/09/16) Vitals VITALS Vital Signs Date Time Temp Pulse Resp B/P (MAP) Pulse Ox O2 Delivery O2 Flow Rate FiO2 12/12/16 17:06 96 Room Air 12/12/16 15:25 97.7 77 19 114/81 (92) 97.7 Labs Labs Laboratory Tests Test 12/12/16 03:15 12/12/16 04:05 Stool Occult Blood Negative (NEG) White Blood Count 8.2 x10^3/uL (4.0-11.0) Red Blood Count 3.58 x10^6/uL (3.50-5.40) Hemoglobin 10.9 g/dL (12.0-15.5) Hematocrit 32.6 % (36.0-47.0) Mean Corpuscular Volume 91 fL (79-100) Mean Corpuscular Hemoglobin 31 pg (25-35) Mean Corpuscular Hemoglobin Concent 34 g/dL (31-37) Red Cell Distribution Width 14.5 % (11.5-14.5) Platelet Count 216 x10^3/uL (140-400) Neutrophils (%) (Auto) 61 % (31-73) Lymphocytes (%) (Auto) 30 % (24-48) Monocytes (%) (Auto) 8 % (0-9) Eosinophils (%) (Auto) 0 % (0-3) Basophils (%) (Auto) 1 % (0-3) Neutrophils # (Auto) 5.0 x10^3uL (1.8-7.7) Lymphocytes # (Auto) 2.5 x10^3/uL (1.0-4.8) Monocytes # (Auto) 0.6 x10^3/uL (0.0-1.1) Eosinophils # (Auto) 0.0 x10^3/uL (0.0-0.7) Basophils # (Auto) 0.0 x10^3/uL (0.0-0.2) Prothrombin Time 12.5 SEC (11.7-14.0) Prothromb Time International Ratio 1.0 (0.8-1.1) Activated Partial Thromboplast Time 30 SEC (24-38) Sodium Level 142 mmol/L (136-145) Potassium Level 3.9 mmol/L (3.5-5.1) Chloride Level 105 mmol/L (98-107) Carbon Dioxide Level 28 mmol/L (21-32) Anion Gap 9 (6-14) Blood Urea Nitrogen 25 mg/dL (7-20) Creatinine 0.7 mg/dL (0.6-1.0) Estimated GFR (Cockcroft-Gault) 86.2 Glucose Level 100 mg/dL (70-99) Calcium Level 8.7 mg/dL (8.5-10.1) Total Bilirubin 0.1 mg/dL (0.2-1.0) Direct Bilirubin < 0.1 mg/dL (0.0-0.2) Aspartate Amino Transf (AST/SGOT) 10 U/L (15-37) Alanine Aminotransferase (ALT/SGPT) 17 U/L (14-59) Alkaline Phosphatase 97 U/L (46-116) Total Protein 6.8 g/dL (6.4-8.2) Albumin 3.3 g/dL (3.4-5.0) Lipase 140 U/L (73-393) Laboratory Tests Test 12/12/16 03:15 12/12/16 04:05 Stool Occult Blood Negative (NEG) White Blood Count 8.2 x10^3/uL (4.0-11.0) Red Blood Count 3.58 x10^6/uL (3.50-5.40) Hemoglobin 10.9 g/dL (12.0-15.5) Hematocrit 32.6 % (36.0-47.0) Mean Corpuscular Volume 91 fL (79-100) Mean Corpuscular Hemoglobin 31 pg (25-35) Mean Corpuscular Hemoglobin Concent 34 g/dL (31-37) Red Cell Distribution Width 14.5 % (11.5-14.5) Platelet Count 216 x10^3/uL (140-400) Neutrophils (%) (Auto) 61 % (31-73) Lymphocytes (%) (Auto) 30 % (24-48) Monocytes (%) (Auto) 8 % (0-9) Eosinophils (%) (Auto) 0 % (0-3) Basophils (%) (Auto) 1 % (0-3) Neutrophils # (Auto) 5.0 x10^3uL (1.8-7.7) Lymphocytes # (Auto) 2.5 x10^3/uL (1.0-4.8) Monocytes # (Auto) 0.6 x10^3/uL (0.0-1.1) Eosinophils # (Auto) 0.0 x10^3/uL (0.0-0.7) Basophils # (Auto) 0.0 x10^3/uL (0.0-0.2) Prothrombin Time 12.5 SEC (11.7-14.0) Prothromb Time International Ratio 1.0 (0.8-1.1) Activated Partial Thromboplast Time 30 SEC (24-38) Sodium Level 142 mmol/L (136-145) Potassium Level 3.9 mmol/L (3.5-5.1) Chloride Level 105 mmol/L (98-107) Carbon Dioxide Level 28 mmol/L (21-32) Anion Gap 9 (6-14) Blood Urea Nitrogen 25 mg/dL (7-20) Creatinine 0.7 mg/dL (0.6-1.0) Estimated GFR (Cockcroft-Gault) 86.2 Glucose Level 100 mg/dL (70-99) Calcium Level 8.7 mg/dL (8.5-10.1) Total Bilirubin 0.1 mg/dL (0.2-1.0) Direct Bilirubin < 0.1 mg/dL (0.0-0.2) Aspartate Amino Transf (AST/SGOT) 10 U/L (15-37) Alanine Aminotransferase (ALT/SGPT) 17 U/L (14-59) Alkaline Phosphatase 97 U/L (46-116) Total Protein 6.8 g/dL (6.4-8.2) Albumin 3.3 g/dL (3.4-5.0) Lipase 140 U/L (73-393) HEATHER GAN MD Dec 12, 2016 17:52
[2016-12-12] MEDS: predniSONE 20 MG TABLET PO SCH (18:26)
[2016-12-12 19:00] VITALS: BP 137/73
[2016-12-12] MEDS ORDERED: traZODone 100 MG TABLET. PO SCH (21:00)
[2016-12-12] MEDS ORDERED: ZOLPIDEM 5 MG TABLET. PO SCH (21:00)
[2016-12-12 23:00] VITALS: BP 114/68
[2016-12-13 03:04] VITALS: BP 118/77
[2016-12-13 03:09] VITALS: BP 118/77
[2016-12-13] MEDS: LEVOTHYROXINE 125 MCG TABLET PO SCH (05:26)
[2016-12-13] MEDS: MORPHINE SULFATE 4 MG/ML DISP.SYRIN. IV PRN ×2 (06:31→11:32)
[2016-12-13 07:00] VITALS: BP 103/51
[2016-12-13 07:23] LABS: HEMATOCRIT 32.9 % (36.0-47.0)
[2016-12-13] MEDS: SUCRALFATE 1 GM TABLET. PO SCH ×2 (07:30→12:40)
[2016-12-13] MEDS: PANTOPRAZOLE 40 MG TABLET.DR. PO SCH (07:30)
[2016-12-13] MEDS: PREGABALIN 75 MG CAPSULE PO SCH (09:00)
[2016-12-13] MEDS: carBAMazepine 200 MG TABLET PO SCH (09:00)
[2016-12-13] MEDS: predniSONE 20 MG TABLET PO SCH (09:00)
[2016-12-13] MEDS: traMADol 50 MG TABLET PO SCH (09:00)
[2016-12-13] MEDS: VENLAFAXINE 75 MG TABLET. PO SCH ×2 (09:00→12:40)
[2016-12-13 11:00] VITALS: BP 100/55
--- NOTE | 2016-12-13 12:14 | PDOC ---
Subjective: Subjective: Does not feel ready to DC, still has pain. Objective: Objective: Per RN - eating a lot of popsicles. No vomiting or bleeding. Wants morphine Q 2 hrs. Vital Signs: Vital Signs Date Time Temp Pulse Resp B/P (MAP) Pulse Ox O2 Delivery O2 Flow Rate FiO2 12/13/16 11:32 Room Air 12/13/16 09:00 2.0 12/13/16 07:01 96 12/13/16 07:00 98.1 89 17 103/51 (68) 98.1 Labs: Laboratory Tests Test 12/13/16 07:10 Hemoglobin 11.0 g/dL Hematocrit 32.9 % Mean Corpuscular Hemoglobin Concent 33 g/dL Imaging: GES 12/13/16 PENDING PE: GEN: NAD, talking on cell phone, eating grape popsicle LUNGS: CTAB anteriorly HEART: RRR ABD: BS+, epigastric tenderness - mild, no guarding NEURO/PSYCH: A & O 3 A/P: Upper abd pain Coffee-ground emesis - no recurrence Normocytic anemia - Hgb stable (10.9 to 11) H/o PUD, recent EGD w/ erosive gastritis, on PPI BID Lupus - on prednisone, neuro following, doubt lupus cerebritis -- Appears improved today. GES report pending although appears to have some delay. Discussed gastroparesis diet (small, frequent meals). She has taken Reglan before w/o adverse effects - is an option for PRN use (QIDAC), not ideal long-term. Continue PPI and NSAID avoidance. ADAT, look toward DC. Establish PCP and rheum. as outpt. [place] ANAND Dec 13, 2016 12:13
--- NOTE | 2016-12-13 13:34 | RAD ---
Radionuclide gastric emptying study, 12/13/2016: History: Abdominal pain, nausea and vomiting The study was performed utilizing a solid test meal radiolabeled with 2 mCi of technetium 99m sulfur colloid. Imaging was performed out to 1 hour. The time to half emptying of the test meal from the patient's stomach was estimated at 159 minutes. A normal T1/2 is 60 minutes +/- 30 minutes. IMPRESSION: Moderately delayed gastric emptying
[2016-12-13] MEDS ORDERED: METO10TA81 PO (14:04)
--- NOTE | 2016-12-13 14:56 | PDOC3 ---
Discharge Summary Visit Information Date of Admission: Dec 12, 2016 Date of Discharge: Dec 13, 2016 Admitting Diagnosis Comment: 1. GAstritis, non compliant with PPI BID and carafate TID 2. NOrmocytic anemia - did drop to 10 from 12 on dc last September 3. NArc addiction Final Diagnosis Problems Medical Problems: (1) Abdominal pain Status: Acute (2) Gastritis Status: Acute Brief Hospital Course Allergies Allergies Coded Allergies Type Severity Reaction Last Updated Verified gabapentin Allergy Intermediate 10/09/16 Yes NSAIDS (Non-Steroidal Anti-Inflamma Allergy Mild Nausea and Vomiting 10/09/16 Yes Vital Signs Vital Signs Date Time Temp Pulse Resp B/P (MAP) Pulse Ox O2 Delivery O2 Flow Rate FiO2 12/13/16 12:40 Room Air 12/13/16 11:00 98.4 78 18 100/55 (70) 98 2.0 98.4 Lab Results Laboratory Tests Test 12/12/16 03:15 12/12/16 04:00 12/12/16 04:05 12/13/16 07:10 Stool Occult Blood Negative (NEG) Erythrocyte Sedimentation Rate 60 (0-25) White Blood Count 8.2 x10^3/uL (4.0-11.0) Red Blood Count 3.58 x10^6/uL (3.50-5.40) Hemoglobin 10.9 g/dL (12.0-15.5) 11.0 g/dL (12.0-15.5) Hematocrit 32.6 % (36.0-47.0) 32.9 % (36.0-47.0) Mean Corpuscular Volume 91 fL (79-100) Mean Corpuscular Hemoglobin 31 pg (25-35) Mean Corpuscular Hemoglobin Concent 34 g/dL (31-37) 33 g/dL (31-37) Red Cell Distribution Width 14.5 % (11.5-14.5) Platelet Count 216 x10^3/uL (140-400) Neutrophils (%) (Auto) 61 % (31-73) Lymphocytes (%) (Auto) 30 % (24-48) Monocytes (%) (Auto) 8 % (0-9) Eosinophils (%) (Auto) 0 % (0-3) Basophils (%) (Auto) 1 % (0-3) Neutrophils # (Auto) 5.0 x10^3uL (1.8-7.7) Lymphocytes # (Auto) 2.5 x10^3/uL (1.0-4.8) Monocytes # (Auto) 0.6 x10^3/uL (0.0-1.1) Eosinophils # (Auto) 0.0 x10^3/uL (0.0-0.7) Basophils # (Auto) 0.0 x10^3/uL (0.0-0.2) Prothrombin Time 12.5 SEC (11.7-14.0) Prothromb Time International Ratio 1.0 (0.8-1.1) Activated Partial Thromboplast Time 30 SEC (24-38) Sodium Level 142 mmol/L (136-145) Potassium Level 3.9 mmol/L (3.5-5.1) Chloride Level 105 mmol/L (98-107) Carbon Dioxide Level 28 mmol/L (21-32) Anion Gap 9 (6-14) Blood Urea Nitrogen 25 mg/dL (7-20) Creatinine 0.7 mg/dL (0.6-1.0) Estimated GFR (Cockcroft-Gault) 86.2 Glucose Level 100 mg/dL (70-99) Calcium Level 8.7 mg/dL (8.5-10.1) Total Bilirubin 0.1 mg/dL (0.2-1.0) Direct Bilirubin < 0.1 mg/dL (0.0-0.2) Aspartate Amino Transf (AST/SGOT) 10 U/L (15-37) Alanine Aminotransferase (ALT/SGPT) 17 U/L (14-59) Alkaline Phosphatase 97 U/L (46-116) Total Protein 6.8 g/dL (6.4-8.2) Albumin 3.3 g/dL (3.4-5.0) Lipase 140 U/L (73-393) Thyroid Stimulating Hormone (TSH) 0.120 uIU/mL (0.358-3.74) Laboratory Tests Test 12/13/16 07:10 Hemoglobin 11.0 g/dL (12.0-15.5) Hematocrit 32.9 % (36.0-47.0) Mean Corpuscular Hemoglobin Concent 33 g/dL (31-37) Brief Hospital Course Ms. 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 She was admitted here September for the same, EGD done showed gastritis, She claims she takes her PPI but I did ask her details (how frequent, carafate etc- which she was dcd on ) and she could not tell me these, Hence I doubt her compliance, I have had 5 calls at least just in AM from the RN for multiple calls re pain meds, she has visited RN station maybe 10 times now for pain meds. I told her I will not do dilaudid as this will not solve her gastritis. Did discuss with Gi [employer], could see as OP but they can also see inpt if she stays. Will rpt HH andrés, make sure not dropping, If stable, home andrés I did consult GI. LAst abd ct was October 17, showed: IMPRESSION: 1. No evidence of bowel obstruction or hydronephrosis. 2. Cystic lesion left kidney. 3. Questionable region of nipple retraction on the right. This could be positional in nature but if there is physical exam finding of nipple retraction would consider obtaining a follow-up mammogram and/or ultrasound if one has not been obtained recently. COURSE; Hgb upon dc 11. no coffee grounds, no rpt egd in order,. Cleared from GI. Difficult dc,. Wants iV narcs, but fast asleep, Recommenede to follow the PPI and carafate,\ High likelihood of going back to er, bUT MUST NOT ADMIT UNLESS THERE IS COMPELLING REASON (not just IV pain meds) GET slight delay, i rxd reglan Discharge Information Condition at Discharge: Improved, Stable Disposition/Orders: D/C to Home Scheduled Alprazolam (Xanax), 1 TAB PO TID, (Reported) Levothyroxine Sodium (Levothyroxine Sodium), 1 TAB PO DAILY, (Reported) Pantoprazole Sodium (Pantoprazole Sodium), 40 MG PO BIDAC Pregabalin (Lyrica), 1 CAP PO BID, (Reported) Sucralfate (Sucralfate), 1 TAB PO TID Tramadol Hcl (Tramadol Hcl), 1 TAB PO BID, (Reported) Trazodone Hcl (Trazodone Hcl), 1 TAB PO QHS, (Reported) Venlafaxine Hcl (Effexor Xr), 300 MG PO DAILY, (Reported) Zolpidem Tartrate (Ambien), 1 TAB PO QHS, (Reported) Scheduled PRN Alprazolam (Alprazolam), 1 MG PO PRN Q6HRS PRN for ANXIETY / AGITATION, ( Reported) Cyclobenzaprine Hcl (Cyclobenzaprine Hcl), 10 MG PO PRN Q6HRS PRN for MUSCLE SPASMS Oxycodone Hcl/Acetaminophen (Oxycodone-Acetaminophen 5-325), 2 TAB PO PRN Q4HRS PRN for MODERATE TO SEVERE PAIN [Oxycodone Hcl/Acetaminophen], 1 TAB PO PRN Q4HRS PRN for MODERATE PAIN Miscellaneous Medications Carbamazepine (Tegretol), 200 MG PO, (Reported) TANIYA RESENDIZ MD Dec 13, 2016 14:56
--- NOTE | 2016-12-13 16:45 | EEG ---
DATE OF SERVICE: 12/13/2016 ELECTROENCEPHALOGRAM NUMBER: [id number] OBJECTIVE: This is a 56-year-old female patient with history of lupus and cognitive function Impairment. EEG was requested to evaluate cerebral activity. METHODS: Twenty electrodes were applied according to the international 10-20 electrode placement system. EKG monitoring, hyperventilation, intermittent photic stimulation, monopolar and bipolar montages were routinely utilized. The record was obtained on a digital system with video monitoring. FINDINGS: 1. Background: The patient was recorded in a very brief awake state, but mainly drowsy and sleep states. The overall background amplitude is 10 to 20 microvolts of posterior dominant rhythm of 8 Hz is occasionally observed during the very brief awake state. 2. Abnormalities: No specific epileptiform discharge or electrographic seizure is seen. No diffuse slowing. 3. Activation: Hyperventilation was not performed because the patient was drowsy/sleepy. Intermittent photic stimulation was performed with photic driving. IMPRESSION: This electroencephalogram is within the broad normal limits of the study for the mainly drowsy and sleep states. Very brief awake state with 8 Hz posterior dominant rhythm noted, but sometimes 7 Hz. No focal, lateralizing, specific epileptiform discharge or electrographic seizure is seen. HEATHER GAN MD DR: BRETT/jazmyn JOB#: [id number] / [id number] DENIA
--- NOTE | 2016-12-13 17:12 | PDOC ---
PROGRESS NOTES Assessment Assessment Lupus cognitive impairment. Psychiatric issues. GI bleeding. Erosive gastritis. Neuropathy in LE. Anxiety. Hypothyroidism. Hyperthyroidism, meds, TSH 0.12, low Narcotics dependence. Doubt lupus cerebritis at the present time. RECOMMENDATIONS/PLAN: Treat medical diseases. Please make adjustment of thyroxin per floor team. EEG on 12/13/16: WNL. Lab: [facility]. HISTORY OF THE PRESENT ILLNESS: 56-y-old female patient with Hx of lupus that was diagnosed about 4 years ago. She said she has been taking non-steroids antiinflammatory medications and has erosive gastritis. She has nausea and vomiting brown colored gastric content to be admitted into the hospital. She was observed some behavior changes so Neurology was called for consultation. Past Medical History Cardiovascular: No pertinent hx Pulmonary: No pertinent hx CENTRAL NERVOUS SYSTEM: Periperal neuropathy GI: Peptic Ulcer disease Heme/Onc: Other Hepatobiliary: No pertinent hx Psych: Anxiety Musculoskeletal: Osteoarthritis Rheumatologic: No pertinent hx Infectious disease: No pertinent hx Renal/: No pertinent hx Endocrine: Hypothyroidism Past Surgical History Appendectomy, Arthroscopy, Cholecystectomy, , Hysterectomy, Other Family History Hypertension Social History Smoke: No ALCOHOL: rare Drugs: None ALLERGY: Reviewed. MEDICATIONS: Refer to MAR REVIEW OF SYSTEMS: Constitutional: No malnutrition, weight loss, cachexia. Head: No traumatic brain or head injury. Skin: No edema, or rash. Ear: No infection. Eyes: No vision loss or color blindness. Nose: No bleeding or purulent discharges. Hearing: No hearing decrease. Neck: No injury. Breast: No history of cancer, masses,or discharges. Cardiac: No RI, arrhythmia. Pulmonary: No COPD. GI: GI bleeding this time. Urinary/genital: UTI. Endocrinologic: Obesity. Skeletomuscular: No muscular atrophy, deformity. Neurological: see HP. Psychiatric: Denies drug use/abuse. Otherwise, not [id number] review of systems. PHYSICAL EXAMINATION: General appearance is talkative.. HEENT: Normocephalic and nontraumatic. Eyes, nose, ears, and throat are unremarkable. Neck is supple. No lymphadenopathy. No bruits are heard over the carotid artery. No crepitus. Cardiovascular: S1, S2, regular rate and rhythm. Pulmonary: Clear to auscultation bilaterally. Abdomen: Bowel sounds are positive. Extremities: No rash, lesions, or edema. No restriction of range of motion NEUROLOGICAL EXAMINATION: Alert Oriented to time, place and person. PERRL. EOMI. CN: no focal findings. Muscle tone: within normal. Muscle strength: 5 DTR: 2 Plantar reflex: Flexor response bilaterally Gait: not examined in bed. Sensory exam: no abnormal findings. No cerebellar signs elicited. F-T-N test fine. Objective Objective Vital Signs Date Time Temp Pulse Resp B/P (MAP) Pulse Ox O2 Delivery O2 Flow Rate FiO2 12/13/16 16:40 Room Air 12/13/16 11:00 98.4 78 18 100/55 (70) 98 2.0 98.4 Intake and Output 12/13/16 07:00 Intake Total 2000 ml Balance 2000 ml Intake Oral 2000 ml # Voids 3 Vitals Signs Vitals VS - Last 72 Hours, by Label Date Time Temp Pulse Resp B/P (MAP) Pulse Ox O2 Delivery O2 Flow Rate FiO2 12/13/16 16:40 Room Air 12/13/16 15:09 Room Air 12/13/16 12:40 Room Air 12/13/16 11:32 Room Air 12/13/16 11:00 98.4 78 18 100/55 (70) 98 Nasal Cannula 2.0 98.4 12/13/16 09:00 Nasal Cannula 2.0 12/13/16 07:49 Nasal Cannula 2.0 12/13/16 07:01 96 12/13/16 07:00 98.1 89 17 103/51 (68) 94 Nasal Cannula 2.0 98.1 12/13/16 06:31 18 96 Room Air 12/13/16 03:09 97.4 100 118/77 (91) 96 Nasal Cannula 97.4 12/13/16 03:04 97.4 100 20 118/77 (91) 91 Nasal Cannula 97.4 12/12/16 23:07 19 93 Room Air 12/12/16 23:00 97.9 87 20 114/68 (83) 93 Room Air 97.9 12/12/16 22:37 17 12/12/16 22:07 96 Room Air 12/12/16 20:00 Room Air 12/12/16 19:40 18 96 Room Air 12/12/16 19:00 96.4 90 20 137/73 (94) 95 Room Air 96.4 12/12/16 17:06 96 Room Air 8/15/17 15:25 97.7 77 19 114/81 (92) 96 Room Air 97.7 12/12/16 14:42 96 Room Air 12/12/16 12:58 96 Room Air 12/12/16 12:26 96 Room Air 12/12/16 11:38 Room Air 12/12/16 11:31 96 Room Air 12/12/16 10:55 97.2 64 18 119/71 (87) 96 Room Air 97.2 12/12/16 10:23 95 12/12/16 08:21 95 Room Air 12/12/16 07:50 97.5 72 18 131/61 (84) 95 Room Air 97.5 12/12/16 07:49 97.5 72 18 131/61 (84) 95 Room Air 97.5 Laboratory Laboratory Laboratory Tests Test 12/13/16 07:10 Hemoglobin 11.0 g/dL (12.0-15.5) Hematocrit 32.9 % (36.0-47.0) Mean Corpuscular Hemoglobin Concent 33 g/dL (31-37) Medication Medications Current Medications Prednisone (Prednisone) 20 mg DAILY PO Last administered on 12/12/16 18:26; Start 12/12/16 at 18:00; Stop 12/13/16 at 17:00; Status DC Trazodone HCl (Desyrel) 300 mg QHS PO Last administered on 12/12/16 22:08; Start 12/12/16 at 21:00; Stop 12/13/16 at 17:00; Status DC Zolpidem Tartrate (Ambien) 5 mg QHS PO Last administered on 12/12/16 22:08; Start 12/12/16 at 21:00; Stop 12/13/16 at 17:00; Status DC Comment Review of Relevant I have reviewed the following items piyush (where applicable) has been applied. HEATHER GAN MD Dec 13, 2016 17:12
== END 2016-12-13 16:43 | disposition home or self-care (01) ==
LOC: ER 02:29 → 6 SOUTH 05:30
PROVIDERS: ADMIT Internal Medicine; ATTEND Internal Medicine
DX: K29.01 Acute gastritis with bleeding (principal); Q61.9 Cystic kidney disease, unspecified; D64.9 Anemia, unspecified; F11.20 Opioid dependence, uncomplicated; G62.9 Polyneuropathy, unspecified; F41.9 Anxiety disorder, unspecified; M19.90 Unspecified osteoarthritis, unspecified site; E03.9 Hypothyroidism, unspecified; F09 Unspecified mental disorder due to known physiological condition; J45.909 Unspecified asthma, uncomplicated; M32.9 Systemic lupus erythematosus, unspecified; G89.29 Other chronic pain; E05.90 Thyrotoxicosis, unspecified without thyrotoxic crisis or storm; F32.9 Major depressive disorder, single episode, unspecified; G47.33 Obstructive sleep apnea (adult) (pediatric); Z87.11 Personal history of peptic ulcer disease; Z80.3 Family history of malignant neoplasm of breast; Z90.49 Acquired absence of other specified parts of digestive tract; Z80.2 Family history of malignant neoplasm of other respiratory and intrathoracic organs; Z80.0 Family history of malignant neoplasm of digestive organs; Z98.82 Breast implant status; Z91.19 Patient's noncompliance with other medical treatment and regimen; Z82.49 Family history of ischemic heart disease and other diseases of the circulatory system
CPT/HCPCS: 36415; 78264; 80048; 80076; 82274; 83690; 84443; 85014; 85018; 85025; 85610; 85651; 85730; 95816; 96361; 96374; 96375; 96376; 99285; A9541; G0378; J2270; J2405; J3010; J7030; J7512; G0379

== ENCOUNTER 2016-12-30 23:37 | Emergency (ER) | payer MEDICARE, OTHER ==
[~2016-12-30] VITALS: Ht 177.8 cm; Wt 100.7 kg
[~2016-12-30 23:37] MED LIST changes: +METO10TA81 PO
[2016-12-30 23:55] VITALS: BP 124/77
[2016-12-31] MEDS ORDERED: MORPHINE SULFATE 4 MG/ML DISP.SYRIN. IV/SQ PRN (00:30)
[2016-12-31] MEDS ORDERED: IV NORMAL SALINE 1000ML BAG 1,000 ML IV SCH (00:30)
[2016-12-31] MEDS ORDERED: ONDANSETRON PF 4 MG/2 ML VIAL. IV ONE (00:30)
[2016-12-31] MEDS ORDERED: HYDR-971 PO (00:50)
--- NOTE | 2016-12-31 00:50 | PHYS DOC ---
Past Medical History Past Medical History: Anxiety, Asthma, Depression, Pneumonia, P.U.D., Other Additional Past Medical Histor: Lupus; Erosive Gastritis Past Surgical History: Appendectomy, Cholecystectomy, , Hysterectomy, Other Additional Past Surgical Histo: breast implants and removal, rt ankle Alcohol Use: None Drug Use: None Adult General Chief Complaint Chief Complaint: SHOULDER INJURY HPI HPI Patient is a 56 year old female who presents with complaint of left shoulder pain after suffering a fall at home. Patient states that she was spraying air freshener in her bathroom and states that she accidentally slipped on the tile floor where the air freshener had settled, falling onto her left shoulder. Patient states that she has not been able to move her shoulder due to severe pain. Patient states that it is 10 out of 10 with any movement. The patient states that she has had to keep her arm flexed and rotated and to keep it from hurting. Patient states that she has had a prior surgery on her left shoulder but is unable to tell me what exactly was done at that time. Patient denies hitting her head or losing consciousness and denies any other injuries at this time. Patient has not taken any medications to help with symptoms. Review of Systems Review of Systems Constitutional: Denies fever or chills [] Eyes: Denies change in visual acuity, redness, or eye pain [] HENT: Denies nasal congestion or sore throat [] Respiratory: Denies cough or shortness of breath [] Cardiovascular: No additional information not addressed in HPI [] GI: Denies abdominal pain, nausea, vomiting, bloody stools or diarrhea [] : Denies dysuria or hematuria [] Musculoskeletal: Left shoulder pain[] Integument: Denies rash or skin lesions [] Neurologic: Denies headache, focal weakness or sensory changes [] Current Medications Current Medications Current Medications Medications (Trade) Dose Ordered Sig/[facility] Start Time Stop Time Status Last Admin Dose Admin Morphine Sulfate 4 mg 1X ONCE 12/31/16 00:45 12/31/16 00:46 UNV Ondansetron HCl (Zofran Odt) 4 mg 1X ONCE 12/31/16 00:45 12/31/16 00:46 UNV Ondansetron HCl (Zofran) 4 mg 1X ONCE 12/31/16 00:30 12/31/16 00:31 Cancel Sodium Chloride 1,000 ml @ 100 mls/hr Q10H 12/31/16 00:30 12/31/16 10:29 Cancel Allergies Allergies Allergies Coded Allergies Type Severity Reaction Last Updated Verified gabapentin Allergy Intermediate 10/09/16 Yes NSAIDS (Non-Steroidal Anti-Inflamma Allergy Mild Nausea and Vomiting 10/09/16 Yes Physical Exam Physical Exam Constitutional: Alert, afebrile, appears in moderate to severe discomfort. [] HENT: Normocephalic, atraumatic, bilateral external ears normal, oropharynx moist, no oral exudates, nose normal. [] Eyes: PERRLA, EOMI, conjunctiva normal, no discharge. [] Neck: Normal range of motion, no tenderness, supple, no stridor. [] Cardiovascular:Heart rate regular rhythm, no murmur [] Lungs & Thorax: Bilateral breath sounds clear to auscultation [] Abdomen: Bowel sounds normal, soft, no tenderness, no masses, no pulsatile masses. [] Skin: Warm, dry, no erythema, no rash. [] Back: No tenderness, no CVA tenderness. [] Extremities: Left upper extremity is held flexed and internally rotated, tenderness to palpation over left humeral head, range of motion and left shoulder not tested secondary to pain, sensation and capillary refill normal in left hand. [] Neurologic: Alert and oriented X 3, normal motor function, normal sensory function, no focal deficits noted. [] Current Patient Data Vital Signs Vital Signs Date Time Temp Pulse Resp B/P (MAP) Pulse Ox O2 Delivery O2 Flow Rate FiO2 12/30/16 23:55 99.7 84 18 124/77 (93) 96 Room Air 99.7 EKG EKG Not performed[] Radiology/Procedures Radiology/Procedures 3 view left shoulder series interpreted by me: Minimally displaced left humeral head fracture, no dislocation, chronic AC joint separation compared to previous x-ray Course & Med Decision Making Course & Med Decision Making Pertinent Labs and Imaging studies reviewed. (See chart for details) Patient was given IM morphine in the emergency department to help with pain. The patient was placed in a left shoulder immobilizer by the emergency department nurse. My evaluation post immobilizer application showed normal capillary refill and normal sensation in all 5 digits of the left hand. Patient will be referred to Dr. Tang for follow-up in 5-7 days for reevaluation. Patient prescribed [place] for pain. Advised return emergency department for any worsening symptoms. Patient voiced understanding and in agreement with treatment plan. Dragon Disclaimer Dragon Disclaimer This electronic medical record was generated, in whole or in part, using a voice recognition dictation system. Departure Departure Impression: Primary Impression: Humeral head fracture Disposition: HOME, SELF-CARE Condition: IMPROVED Referrals: NO PCP (PCP) RENETTA TANG MD Patient Instructions: Shoulder Fracture (Proximal Humerus or Glenoid)-[facility] Additional Instructions: Follow-up with Dr. Tang in 5-7 days for reevaluation. Return to the emergency department for any worsening symptoms. Scripts Hydrocodone/Apap 5-325 (NORCO 5-325 TABLET) 1 Each Tablet 1-2 TAB PO Q4-6HRS Y for PAIN, #40 TAB Prov: GALA WORLEY MD 12/31/16 Problem Qualifiers Primary Impression: Humeral head fracture Encounter type: initial encounter Fracture type: closed Laterality: left Qualified Codes: S42.292A - Other displaced fracture of upper end of left humerus, initial encounter for closed fracture GALA WORLEY MD Dec 31, 2016 00:50
[2016-12-31] MEDS ORDERED: MORPHINE SULFATE 4 MG/ML DISP.SYRIN. IM ONE (01:00)
[2016-12-31] MEDS ORDERED: ONDANSETRON ODT 4 MG TAB.RAPDIS. PO ONE (01:00)
--- NOTE | 2016-12-31 08:10 | RAD ---
Examination: 2 views of the left shoulder History: History of left shoulder injury, pain Comparison: None Findings: Humerus head appears to be within the glenoid. Large osteophyte formation identified in the inferior aspect of the humerus. The distal clavicle is translated superiorly with prior changes of distal clavicle osteolysis or postsurgical changes. Lucency identified in the posterior aspect of the humerus head seen on the scapular Y view. Impression: 1. Lucency identified in the posterior aspect of the humeral head seen on the scapular Y view , could be fracture or secondary to a large osteophyte. 2. Severe degenerative changes in the glenohumeral joint. 3. The distal clavicle is translated superiorly with prior changes of distal clavicle osteolysis or postsurgical changes.
== END 2016-12-31 01:00 | disposition home or self-care (01) ==
LOC: ER 23:37
DX: S42.292A Other displaced fracture of upper end of left humerus, initial encounter for closed fracture (principal); J45.909 Unspecified asthma, uncomplicated; M32.9 Systemic lupus erythematosus, unspecified; Z90.49 Acquired absence of other specified parts of digestive tract; Z90.710 Acquired absence of both cervix and uterus; Z88.6 Allergy status to analgesic agent; Z88.8 Allergy status to other drugs, medicaments and biological substances; W01.0XXA Fall on same level from slipping, tripping and stumbling without subsequent striking against object, initial encounter; Y93.89 Activity, other specified; Y99.8 Other external cause status; Y92.89 Other specified places as the place of occurrence of the external cause
CPT/HCPCS: 29105; 73030; 96372; 99284; J2270; Q0162

== ENCOUNTER 2017-01-09 22:37 | Emergency (ER) | payer MEDICARE, OTHER ==
[~2017-01-09 22:37] MED LIST changes: +HYDR-971 PO
[2017-01-10 00:10] VITALS: BP 135/84
[2017-01-10] MEDS ORDERED: HYDR-971 PO (00:30)
--- NOTE | 2017-01-10 00:30 | PHYS DOC ---
Past Medical History Past Medical History: Anxiety, Asthma, Depression, Pneumonia, P.U.D., Other Additional Past Medical Histor: Lupus; Erosive Gastritis Past Surgical History: Appendectomy, Cholecystectomy, , Hysterectomy, Other Additional Past Surgical Histo: breast implants and removal, rt ankle Alcohol Use: None Drug Use: None Adult General Chief Complaint Chief Complaint: SHOULDER INJURY [facility] HPI Patient is a 56 year old female with history of depression and anxiety who presents today with increased left shoulder pain that began December 31, 2016 after she fell and broke her humerus. She states she called the orthopedic doctor and they have not returned her call. Patient denies any new injuries. She states occasionally her left fingers go numb. She states she ran out of her hydrocodone. Review of Systems Review of Systems Constitutional: Denies fever or chills [] Eyes: Denies change in visual acuity, redness, or eye pain [] HENT: Denies nasal congestion or sore throat [] Respiratory: Denies cough or shortness of breath [] Cardiovascular: No additional information not addressed in HPI [] GI: Denies abdominal pain, nausea, vomiting, bloody stools or diarrhea [] : Denies dysuria or hematuria [] Musculoskeletal: Left shoulder pain Integument: Denies rash or skin lesions [] Neurologic: Denies headache, focal weakness or sensory changes [] Allergies Allergies Allergies Coded Allergies Type Severity Reaction Last Updated Verified gabapentin Allergy Intermediate 10/09/16 Yes NSAIDS (Non-Steroidal Anti-Inflamma Allergy Mild Nausea and Vomiting 10/09/16 Yes Physical Exam Physical Exam Constitutional: Well developed, well nourished, no acute distress, non-toxic appearance. [] HENT: Normocephalic, atraumatic, bilateral external ears normal, oropharynx moist, no oral exudates, nose normal. [] Eyes: PERRLA, EOMI, conjunctiva normal, no discharge. [] Neck: Normal range of motion, no tenderness, supple, no stridor. [] Cardiovascular:Heart rate regular rhythm, no murmur [] Lungs & Thorax: Bilateral breath sounds clear to auscultation [] Abdomen: Bowel sounds normal, soft, no tenderness, no masses, no pulsatile masses. [] Skin: Warm, dry, no erythema, no rash. [] Back: No tenderness, no CVA tenderness. [] Extremities: Left shoulder with no obvious deformity. Tenderness on palpation throughout the left shoulder joint as well as proximal humerus. Very limited range of motion to the left shoulder especially abduction past 10 due to pain. +2 left radial pulse. Adequate ulnar median radius sensation to the left forearm. Cap refill less than 2 seconds the left fingers. Neurologic: Alert and oriented X 3, normal motor function, normal sensory function, no focal deficits noted. [] Psychologic: Affect normal, judgement normal, mood normal. [] EKG EKG [] Radiology/Procedures Radiology/Procedures [] Course & Med Decision Making Course & Med Decision Making Pertinent Labs and Imaging studies reviewed. (See chart for details) Patient is in the ED with increased left shoulder pain from left humerus fracture she sustained in December 31, 2016. She no longer has the sling which was provided to her on her previous visit. The sling was offered to her applied by the technologist development, neurovascular exam is intact. Recommended she contact the orthopedic doctor tomorrow to set up a follow-up appointment. Provided prescription for hydrocodone. Dragon Disclaimer Dragon Disclaimer This electronic medical record was generated, in whole or in part, using a voice recognition dictation system. Departure Departure Impression: Primary Impression: Shoulder pain, left Disposition: 01 HOME, SELF-CARE Condition: STABLE Referrals: NO PCP (PCP) RENETTA MAHARAJ MD call his office tomorrow for a follow up appointment Patient Instructions: Shoulder Pain, [id number] Additional Instructions: You were seen with increased left shoulder pain from an injury you had Dec 31 2016. Please make sure you call the orthopedic doctor tomorrow morning and set up a follow-up appointment. Ice and elevate the extremity as tolerated. Scripts Hydrocodone/Apap 5-325 (NORCO 5-325 TABLET) 1 Each Tablet 1-2 TAB PO Q4-6HRS, #20 TAB Prov: HENRI CASEY MARY 01/10/17 Problem Qualifiers Primary Impression: Shoulder pain, left Chronicity: acute Qualified Codes: M25.512 - Pain in left shoulder JIMMYHENRI RUBIN MARY Jan 10, 2017 00:30
== END 2017-01-10 00:40 | disposition home or self-care (01) ==
LOC: ER 22:37
DX: M25.512 Pain in left shoulder (principal); F41.9 Anxiety disorder, unspecified; J45.909 Unspecified asthma, uncomplicated; F32.9 Major depressive disorder, single episode, unspecified; Z88.6 Allergy status to analgesic agent; Z88.8 Allergy status to other drugs, medicaments and biological substances
CPT/HCPCS: 99283

== ENCOUNTER 2017-02-10 02:20 | Emergency (ER) | payer MEDICARE, OTHER ==
[~2017-02-10] VITALS: Ht 177.8 cm; Wt 101.2 kg
[2017-02-10 02:27] VITALS: BP 126/57
--- NOTE | 2017-02-10 02:54 | PHYS DOC ---
Past Medical History Past Medical History: Anxiety, Asthma, Depression, Pneumonia, P.U.D., Other Additional Past Medical Histor: Lupus; Erosive Gastritis Past Surgical History: Appendectomy, Cholecystectomy, , Hysterectomy, Other Additional Past Surgical Histo: breast implants and removal, rt ankle Alcohol Use: None Drug Use: None Adult General Chief Complaint Chief Complaint: MECHANICAL FALL HPI HPI Patient is a 56 year old female who presents with complaint of left shoulder pain. Patient states that she was walking her dog shortly prior to arrival when she accidentally tripped in a pothole in the yard and fell onto her left shoulder. The patient was seen in the emergency department twice over the last month, initially on December 31, 2016. X-rays at that time suggested possible acute humeral head fracture. Patient was treated with a sling. The patient was seen in the emergency department again on January 09, 2017 with complaints of continued shoulder pain. At that time it was noted that the patient stated she had not followed up with orthopedic surgery. The patient however states that after her second visit she did follow-up in Dr. Tang's office. Patient states that she was diagnosed with a rotator cuff injury and that she may need to be set up for surgery in the near future. Patient states that she was starting to feel better until she had her accidental fall tonight. Patient states that since her fall she has noted numbness going into the fingers of her left hand however she is currently able to move them. Patient states that she is unable to move her left arm, however she notes that she is having significant pain which may be limiting her ability to move it. Patient rates her pain as 10 out of 10. Patient has not taken any medications for her symptoms since her fall. Review of Systems Review of Systems Constitutional: Denies fever or chills [] Eyes: Denies change in visual acuity, redness, or eye pain [] HENT: Denies nasal congestion or sore throat [] Respiratory: Denies cough or shortness of breath [] Cardiovascular: Denies chest pain or edema[] GI: Denies abdominal pain, nausea, vomiting, bloody stools or diarrhea [] : Denies dysuria or hematuria [] Musculoskeletal: Left shoulder and upper arm pain[] Integument: Denies rash or skin lesions [] Neurologic: Denies headache, numbness in left hand[] Current Medications Current Medications Current Medications Medications (Trade) Dose Ordered Sig/Queta Start Time Stop Time Status Last Admin Dose Admin Morphine Sulfate 4 mg 1X ONCE 02/10/17 03:15 02/10/17 03:16 DC 02/10/17 03:05 4 MG Ondansetron HCl (Zofran Odt) 4 mg 1X ONCE 02/10/17 03:15 02/10/17 03:16 DC 02/10/17 03:05 4 MG Allergies Allergies Allergies Coded Allergies Type Severity Reaction Last Updated Verified gabapentin Allergy Intermediate 10/09/16 Yes NSAIDS (Non-Steroidal Anti-Inflamma Allergy Mild Nausea and Vomiting 10/09/16 Yes Physical Exam Physical Exam Constitutional: Alert, afebrile, appears in moderate discomfort. [] HENT: Normocephalic, atraumatic, bilateral external ears normal, oropharynx moist, no oral exudates, nose normal. [] Eyes: PERRLA, EOMI, conjunctiva normal, no discharge. [] Neck: Normal range of motion, no tenderness, supple, no stridor. [] Cardiovascular:Heart rate regular rhythm, no murmur [] Lungs & Thorax: Bilateral breath sounds clear to auscultation [] Abdomen: Bowel sounds normal, soft, no tenderness, no masses, no pulsatile masses. [] Skin: Warm, dry, no erythema, no rash. [] Back: No tenderness, no CVA tenderness. [] Extremities: Left upper extremity held flexed and internally rotated, anterior and lateral left shoulder tenderness to palpation, range of motion not tested secondary to pain, capillary refill less than 2 seconds in all 5 digits of left hand, normal sensation. [] Neurologic: Alert and oriented X 3, normal motor function, sensation is normal in left hand to light touch and deep pressure. [] Current Patient Data Vital Signs Vital Signs Date Time Temp Pulse Resp B/P (MAP) Pulse Ox O2 Delivery O2 Flow Rate FiO2 02/10/17 02:27 98.5 77 12 96 Room Air 98.5 EKG EKG Not performed[] Radiology/Procedures Radiology/Procedures Left humerus x-ray, 2 views, interpreted by me: No acute fracture, normal alignment, normal soft tissue[] Course & Med Decision Making Course & Med Decision Making Pertinent Labs and Imaging studies reviewed. (See chart for details) Patient's x-rays were negative for acute fracture. This is the patient's third visit for complaints of shoulder pain in the last 40 days. I'm starting to have suspicion that the patient may be displaying drug seeking behavior. The patient was given a one-time dose of morphine and oral Zofran in the emergency department for acute management of pain. Due to lack of evidence of acute fracture, I do not feel that additional narcotic pain prescriptions are indicated. I advised that the patient continue with oral Tylenol and her home medications for treatment of pain. Advised use of sling for comfort with recommended gentle range of motion as tolerated with the left upper extremity. Recommended follow-up with the patient's primary doctor in the next 2-3 days for reevaluation and discuss any further need for narcotic pain medications. Advised return emergency department for any worsening symptoms. Patient voiced understanding and in agreement with treatment plan. Dragon Disclaimer Dragon Disclaimer This electronic medical record was generated, in whole or in part, using a voice recognition dictation system. Departure Departure Impression: Primary Impression: Shoulder pain, left Disposition: 01 HOME, SELF-CARE Condition: STABLE Referrals: NO PCP (PCP) Patient Instructions: Shoulder Pain Additional Instructions: Your x-ray showed no evidence of a new fracture. Follow-up with your primary doctor in the next 2-3 days for reevaluation. You may do gentle range of motion with the left upper extremity as tolerated. Return to the emergency department for any worsening or severe symptoms. Problem Qualifiers Primary Impression: Shoulder pain, left Chronicity: unspecified Qualified Codes: M25.512 - Pain in left shoulder GALA WORLEY MD Feb 10, 2017 02:54
[2017-02-10] MEDS ORDERED: MORPHINE SULFATE 4 MG/ML DISP.SYRIN. IM ONE (03:15)
[2017-02-10] MEDS ORDERED: ONDANSETRON ODT 4 MG TAB.RAPDIS. PO ONE (03:15)
--- NOTE | 2017-02-10 07:54 | RAD ---
Two-view left humerus study History: Pain after a fall. Findings: No acute fracture or dislocation or osteolytic process is seen. There is widening of the AC joint which may be postoperative in nature. This was seen on a previous study dated December 31, 2016. There is mild primary degenerative osteoarthritis of the glenohumeral joint. IMPRESSION: No acute fracture.
== END 2017-02-10 03:30 | disposition home or self-care (01) ==
LOC: ER 02:20
DX: M25.512 Pain in left shoulder (principal); J45.909 Unspecified asthma, uncomplicated; Z87.11 Personal history of peptic ulcer disease; Z88.6 Allergy status to analgesic agent; Z88.8 Allergy status to other drugs, medicaments and biological substances; W01.0XXA Fall on same level from slipping, tripping and stumbling without subsequent striking against object, initial encounter; Y93.K1 Activity, walking an animal; Y99.8 Other external cause status; Y92.096 Garden or yard of other non-institutional residence as the place of occurrence of the external cause
CPT/HCPCS: 73060; 96372; 99284; J2270; Q0162